=== PATIENT | male | born 1955 | race Two or more races ===

== ENCOUNTER 2016-06-10 16:32 | Inpatient (IN) | payer BC ==
[~2016-06-10] VITALS: Ht 177.8 cm; Wt 127.0 kg
[2016-06-10 16:41] VITALS: BP 158/88
[2016-06-10] MEDS ORDERED: Albuterol ud Inhalation ONE (16:42)
[2016-06-10] MEDS ORDERED: Ipratropium 0.02% Inh Soln 2.5ml UD ONE (16:43)
[2016-06-10] MEDS ORDERED: Solu-MEDROL 125mg Inj IVP ONE (16:45)
[2016-06-10 17:00] VITALS: BP 145/70
[2016-06-10 17:03] LABS: BASOPHILS % (AUTO) 1.4 % (0.0-2.0); EOSINOPHILS % (AUTO) 2.6 % (0.0-3.0); LYMPHOCYTES % (AUTO) 25.4 % (20.0-45.0); MEAN CORPUSCULAR HEMOGLOBIN 30.4 PG (27.0-31.0); MEAN CORPUSCULAR HGB CONC 31.1 G/DL (32.0-36.0); MEAN CORPUSCULAR VOLUME 98 FL (80-99); MEAN PLATELET VOLUME 6.6 FL (6.5-10.1); MONOCYTES % (AUTO) 9.4 % (1.0-10.0); NEUTROPHILS % (AUTO) 61.2 % (45.0-75.0); PLATELET COUNT 279 K/UL (150-450); RED BLOOD COUNT 3.92 M/UL (4.70-6.10); RED CELL DISTRIBUTION WIDTH 15.5 % (11.6-14.8)
[2016-06-10] MEDS: Albuterol ud Inhalation HHN SCH ×3 (17:10→17:21)
[2016-06-10] MEDS: Ipratropium 0.02% Inh Soln 2.5ml UD HHN SCH ×3 (17:10→17:21)
[2016-06-10 17:11] LABS: ALBUMIN/GLOBULIN RATIO 1.1 (1.0-2.7); CREATININE 1.3 mg/dL (0.7-1.2); GLOMERULAR FILTRATION RATE 56.1 mL/min (>60); POTASSIUM 5.1 mEQ/L (3.4-4.9); TOTAL PROTEIN 6.8 g/dL (6.6-8.7)
[2016-06-10 17:15] LABS: REFLEX LACTIC ACID YES OR NO YES
[2016-06-10 17:16] LABS: TROPONIN I < 0.30 ng/mL (<=0.30)
[2016-06-10 17:22] LABS: CKMB 5.7 ng/mL (< 6.7)
[2016-06-10] MEDS ORDERED: TRULICITY1.5 MG/0.5 SQ (17:24)
[2016-06-10] MEDS ORDERED: POTASSIUM 25 M25 ME1 PO (17:24)
[2016-06-10] MEDS ORDERED: INVOKANA300 MG PO (17:24)
[2016-06-10] MEDS ORDERED: LEVOFLOXACIN750 MG ORAL (17:24)
[2016-06-10] MEDS ORDERED: JUNUVIA PO (17:24)
[2016-06-10] MEDS ORDERED: FLOMAX0.4 MG ORAL (17:24)
[2016-06-10] MEDS ORDERED: METFORMIN HCL1000 M3 PO (17:24)
[2016-06-10] MEDS ORDERED: LISINOPRIL20 MG ORAL (17:24)
[2016-06-10] MEDS ORDERED: MIRTAZAPINE15 M1 ORAL (17:24)
[2016-06-10] MEDS ORDERED: ELIQUIS5 MG PO (17:24)
[2016-06-10] MEDS ORDERED: NOVOLIN R100 UNIT/1 SUBQ (17:24)
[2016-06-10] MEDS ORDERED: BYSTOLIC 10MG10 MG ORAL (17:24)
[2016-06-10 17:32] LABS: BILIRUBIN,DIRECT 0.4 mg/dL (0.1-0.3)
[2016-06-10 17:42] LABS: ABG ALLEN TEST POSITIVE; ABG BASE EXCESS 0.2; ABG PCO2 51.7 mmHg (35.0-45.0)
[2016-06-10 18:00] VITALS: BP 150/76
[2016-06-10 18:19] LABS: APPEARANCE,URINE CLOUDY; KETONES,URINE 1+ (NEGATIVE); LEUKOCYTE ESTERASE ,URINE 1+ (NEGATIVE); NITRITE,URINE NEGATIVE (NEGATIVE); PH,URINE 5 (4.5-8.0); PROTEIN,URINE 4+ (NEGATIVE); UROBILINOGEN,URINE 4 MG/DL (0.0-1.0)
[2016-06-10 18:35] LABS: AMORPHOUS SEDIMENT,UR MANY /LPF; BACTERIA,URINE MODERATE /HPF; SQUAMOUS EPITHELIAL CELL,UR OCCASIONAL /LPF (NONE/OCC)
[2016-06-10 18:36] LABS: ICTOTEST NEGATIVE; MUCUS,URINE FEW /LPF (NONE/OCC)
--- NOTE | 2016-06-10 18:37 | Emergency Room Report ---
History of Present Illness General Chief Complaint: Dyspnea/Respdistress Source: EMS Present Illness HPI 60-year-old male presents ED for evaluation of respiratory distress. Per EMS patient had sudden onset of shortness of breath starting today. Per EMS patient had crackles in bilateral lungs, pitting edema in both legs. Hypertensive. Patient was started on CPAP given nitroglycerin. Started on nebs. Upon arrival patient is improved however still remains short of breath. History of COPD and CHF. No reported fevers or chills. No chest pain. No sick contacts or recent travel. No other aggravating or relieving factors. Denies any other associated symptoms Allergies: Coded Allergies: LATEX, NATURAL RUBBER (Verified Allergy, Unknown, 06/10/16) Patient History Past Medical History: DM, HTN, CHF Past Surgical History: none Pertinent Family History: none Social History: Denies: alcohol use, drug use, smoking Immunizations: UTD Reviewed Nursing Documentation: PMH: Agreed, PSxH: Agreed Nursing Documentation-PMH Past Medical History: No History, Except For Hx Cardiac Problems: Yes - CHF Hx Hypertension: Yes Hx Diabetes: Yes Review of Systems All Other Systems: negative except mentioned in HPI Physical Exam Vital Signs Date Time Temp Pulse Resp B/P Pulse Ox O2 Delivery O2 Flow Rate FiO2 06/10/16 16:27 98 16 158/88 99 Bi-pap 15.0 06/10/16 16:40 100 06/10/16 16:41 97.8 Sp02 EP Interpretation: reviewed, normal General Appearance: moderate distress, obese Head: normocephalic Eyes: bilateral eye PERRL, bilateral eye normal inspection ENT: normal ENT inspection Neck: normal inspection Respiratory: accessory muscle use, crackles, wheezing Cardiovascular #1: regular rate, rhythm, no edema Gastrointestinal: normal bowel sounds, non tender, soft, non-distended, no guarding, no rebound Rectal: deferred Genitourinary: no CVA tenderness Musculoskeletal: normal inspection Neurologic: alert, oriented x3, responsive, motor strength/tone normal, sensory intact, speech normal Psychiatric: normal inspection Skin: normal inspection Lymphatic: normal inspection Procedures Critical Care Time Critical Care Time i. I feel this is a highly complex case requiring extensive working including EKG/Rhythm strip, Xray/CT/US, Blood/urine lab work, repeat exams while in ED, and administration of strong opiates/narcotics for pain control, admission to hospital or close patient follow up. Total time: 30 min bedside evaluation and treatment excludes procedures (EKG). Reason for critical care: Respiratory distress, hypoxia Possible complications: hypotension, hypertension, VA, shock, arrhythmias, metabolic acidosis, end organ damage, respiratory failure. Interventions: BiPAP, nebs, EKG, chest x-ray, labs, antibiotics, Lasix Course: Patient here with respiratory distress. History of CHF. Pitting edema and crackles in lungs. Started on BiPAP. Given slight Medrol and nebs. Labs show CHF. Chest x-ray shows significant effusion on the right. abx given. Lasix given Consultations: nursing staff, EMS, family Performed by: Dr Ramirez Tolerated well condition = serious j. because of unstable vital signs this patient had a condition that could potentially threaten life or limb. I feel this is a critical patient who required my full attention while patient was considered critical. Total Critical Care Time excluding procedures was greater than 35 minutes Medical Decision Making Diagnostic Impression: Primary Impression: Respiratory distress Additional Impressions: CHF exacerbation Qualified Codes: I50.9 - Heart failure, unspecified UTI (urinary tract infection) Qualified Codes: N39.0 - Urinary tract infection, site not specified Sepsis Qualified Codes: A41.9 - Sepsis, unspecified organism ER Course Hospital Course 60-year-old male presents ED complaining of shortness of breath, respiratory distress, leg swelling Differential diagnoses include: VA/unstable angina, contusion, muscle strain, PTX, rib fracture Clinical course Patient placed on stretcher. on manager monitoring. After initial history and physical I ordered labs, EKG, chest x-ray, nebs, BIPAP labs reviewed- no leukocytosis, hemoglobin/hematocrit stable, creatinine elevated, troponins negative, BNP elevated, UA grossly positive, lactate 2.6 Chest x-ray- cardiomegaly, signifant pleural effusion Antibiotics given. Lasix given. Spoke to phlebotomy manager Dr. Sandoval; asked that I admit to Dr Palma Case discussed with Dr. Palma and he agreed to accept the patient to his service for further care and support I. I feel this is a highly complex case requiring extensive working including EKG/Rhythm strip, Xray/CT/US, Blood/urine lab work, repeat exams while in ED, and administration of strong opiates/narcotics for pain control, admission to hospital or close patient follow up. Diagnosis - CHF exacerbation, respriatory distress, UTI, sepsis admitted to [facility] in serious condition Labs Test 06/10/16 16:18 06/10/16 17:15 06/10/16 17:31 06/10/16 17:50 White Blood Count 8.0 K/UL (4.8-10.8) Red Blood Count 3.92 M/UL (4.70-6.10) Hemoglobin 11.9 G/DL (14.2-18.0) Hematocrit 38.3 % (42.0-52.0) Mean Corpuscular Volume 98 FL (80-99) Mean Corpuscular Hemoglobin 30.4 PG (27.0-31.0) Mean Corpuscular Hemoglobin Concent 31.1 G/DL (32.0-36.0) Red Cell Distribution Width 15.5 % (11.6-14.8) Platelet Count 279 K/UL (150-450) Mean Platelet Volume 6.6 FL (6.5-10.1) Neutrophils (%) (Auto) 61.2 % (45.0-75.0) Lymphocytes (%) (Auto) 25.4 % (20.0-45.0) Monocytes (%) (Auto) 9.4 % (1.0-10.0) Eosinophils (%) (Auto) 2.6 % (0.0-3.0) Basophils (%) (Auto) 1.4 % (0.0-2.0) Sodium Level 142 mEQ/L (135-145) Potassium Level 5.1 mEQ/L (3.4-4.9) Chloride Level 100 mEQ/L (98-107) Carbon Dioxide Level 25 mEQ/L (20-30) Anion Gap 17 (5-15) Blood Urea Nitrogen 27 mg/dL (7-23) Creatinine 1.3 mg/dL (0.7-1.2) Estimat Glomerular Filtration Rate 56.1 mL/min (>60) Glucose Level 148 mg/dL (74-106) Lactic Acid Level 2.60 mmol/L (0.66-2.22) 2.20 mmol/L (0.66-2.22) Calcium Level 9.0 mg/dL (8.6-10.2) Total Bilirubin 1.1 mg/dL (0.0-1.2) Direct Bilirubin 0.4 mg/dL (0.1-0.3) Aspartate Amino Transf (AST/SGOT) 30 U/L (5-40) Alanine Aminotransferase (ALT/SGPT) 14 U/L (3-41) Alkaline Phosphatase 140 U/L (40-129) Total Creatine Kinase 86 U/L (38-174) Creatine Kinase MB 5.7 ng/mL (< 6.7) Creatine Kinase MB Relative Index 6.6 Troponin I < 0.30 ng/mL (<=0.30) Pro-B-Type Natriuretic Peptide 8949 pg/mL (0-125) Total Protein 6.8 g/dL (6.6-8.7) Albumin 3.7 g/dL (3.5-5.2) Globulin 3.1 g/dL Albumin/Globulin Ratio 1.1 (1.0-2.7) Arterial Blood pH 7.332 (7.350-7.450) Arterial Blood Partial Pressure CO2 51.7 mmHg (35.0-45.0) Arterial Blood Partial Pressure O2 444.1 mmHg (75.0-100.0) Arterial Blood HCO3 26.8 mmol/L (22.0-26.0) Arterial Blood Oxygen Saturation 99.1 % (92.0-98.0) Arterial Blood Base Excess 0.2 Francis Test Positive Urine Color Brown Urine Appearance Cloudy Urine pH 5 (4.5-8.0) Urine Specific [place] 1.025 (1.005-1.035) Urine Protein 4+ (NEGATIVE) Urine Glucose (UA) Negative (NEGATIVE) Urine Ketones 1+ (NEGATIVE) Urine Occult Blood 2+ (NEGATIVE) Urine Nitrite Negative (NEGATIVE) Urine Bilirubin 1+ (NEGATIVE) Urine Ictotest Negative Urine Urobilinogen 4 MG/DL (0.0-1.0) Urine Leukocyte Esterase 1+ (NEGATIVE) Urine RBC 2-4 /HPF (0 - 0) Urine WBC 5-10 /HPF (0 - 0) Urine Squamous Epithelial Cells Occasional /LPF Urine Amorphous Sediment Many /LPF (NONE) Urine Bacteria Moderate /HPF (NONE) Urine Mucus Few /LPF (NONE/OCC) EKG Diagnostic Results Rate: normal Rhythm: NSR ST Segments: no acute changes ASA given to the pt in ED: No Rhythm Strip Diag. Results EP Interpretation: yes Rhythm: NSR, no PVC's, no ectopy Chest X-Ray Diagnostic Results EP Interpretation: Yes Findings: no pneumothorax, no acute cardiopulmonary disease, other - cardiomegaly. significant R sided effusion Number of Views: 1 Last Vital Signs Date Time Temp Pulse Resp B/P Pulse Ox O2 Delivery O2 Flow Rate FiO2 06/10/16 18:00 87 20 150/76 97 Bi-pap 30 06/10/16 16:41 15.0 06/10/16 16:41 97.8 Status: improved Disposition: ADMITTED INPATIENT Condition: Serious Referrals: NOT CHOSEN MAICOL/,REFERRING (PCP) SURY RAMIREZ M.D. Jun 10, 2016 18:37
[2016-06-10 19:00] VITALS: BP 111/87
[2016-06-10 20:00] VITALS: BP_SYST 115; BP_SYST 136; BP_DIAS 63; BP_DIAS 81
[2016-06-10] MEDS ORDERED: Miralax 17gm pkt ORAL PRN (20:45)
[2016-06-10] MEDS ORDERED: DuoNeb 0.5-3(2.5)mg/3ml neb HHN PRN (20:45)
[2016-06-10] MEDS ORDERED: Heparin 5000 units/ml inj SUBQ SCH (21:00)
[2016-06-10] MEDS: NovoLOG Insulin Flexpen SUBQ SCH (21:50)
[2016-06-10 23:52] LABS: TROPONIN I < 0.30 ng/mL (<=0.30)
[2016-06-11] VITALS: BP 136/79
[2016-06-11 04:00] VITALS: BP 128/72
[2016-06-11 05:49] LABS: MEAN CORPUSCULAR HEMOGLOBIN 30.5 PG (27.0-31.0); MEAN CORPUSCULAR HGB CONC 30.7 G/DL (32.0-36.0); MEAN CORPUSCULAR VOLUME 99 FL (80-99); MEAN PLATELET VOLUME 6.2 FL (6.5-10.1); PLATELET COUNT 211 K/UL (150-450); RED BLOOD COUNT 3.75 M/UL (4.70-6.10); RED CELL DISTRIBUTION WIDTH 14.8 % (11.6-14.8); WHITE BLOOD COUNT 13.2 K/UL (4.8-10.8)
[2016-06-11 06:09] LABS: ANION GAP 17 (5-15); CALCIUM 8.7 mg/dL (8.6-10.2); CARBON DIOXIDE 23 mEQ/L (20-30); CHLORIDE 105 mEQ/L (98-107); CREATININE 1.2 mg/dL (0.7-1.2); GLOMERULAR FILTRATION RATE > 60 mL/min (>60); HEMOLYSIS 12; PHOSPHORUS 4.2 mg/dL (2.5-4.8); POTASSIUM 4.8 mEQ/L (3.4-4.9); SODIUM 145 mEQ/L (135-145)
[2016-06-11] MEDS: NovoLOG Insulin Flexpen SUBQ SCH ×4 (06:19→20:54)
[2016-06-11 07:20] LABS: TROPONIN I < 0.30 ng/mL (<=0.30)
[2016-06-11 08:00] VITALS: BP 125/72
[2016-06-11] MEDS: Eliquis 2.5mg tablet ORAL SCH ×2 (09:24→18:00)
[2016-06-11] MEDS: Tamsulosin 0.4mg cap ORAL SCH (09:31)
--- NOTE | 2016-06-11 10:08 | Diagnostic Imaging Report ---
Indication: Chest Pain Comparison: None A single view chest radiograph was obtained. Findings: Exam limited by body habitus. There is a moderate to large right pleural effusion suspected. Cardiomegaly and pulmonary vascular prominence demonstrated bilaterally. The bones appear osteopenic. Impression: Suspected right pleural effusion and CHF
[2016-06-11] MEDS ORDERED: DuoNeb 0.5-3(2.5)mg/3ml neb HHN PRN (11:45)
[2016-06-11 12:00] VITALS: BP 114/67
--- NOTE | 2016-06-11 12:01 | Consultation ---
History of Present Illness General Date patient seen: Jun 11, 2016 Chief Complaint: Dyspnea/Respdistress Referring physician: Dr. Palma Reason for Consultation: respiratory failure Present Illness HPI 60-year-old male with extensive PMHx of COPD, CHF, JAZMIN, morbid obesity, presents to ED for evaluation of respiratory distress. Patient had sudden onset of shortness of breath starting. Per EMS patient had crackles in bilateral lungs, pitting edema in both legs. Patient was started on CPAP given nitroglycerin. Upon arrival to ER patient remained short of breath. He was started on BIPAp and received diuretics and transferred to [facility]. Currently he looks more comfortable and slight shallow breathing. Allergies: Coded Allergies: LATEX, NATURAL RUBBER (Verified Allergy, Unknown, 06/10/16) Medication History Scheduled Apixaban (Eliquis), 5 MG PO Q12HR, (Reported) Bysto (Bystolic), 10 MG ORAL DAILY, (Reported) Canagliflozin (Invokana), 300 MG PO DAILY, (Reported) Dulaglutide (Trulicity), 1.5 MG SQ q week, (Reported) Insulin Regular, Human* (Novolin R*), 0 SUBQ .SLIDING SCALE, (Reported) Levofloxacin* (Levofloxacin*), 500 MG ORAL DAILY, (Reported) Lisinopril (Lisinopril*), 40 MG ORAL DAILY, (Reported) Metformin HCl (Metformin HCl ER), 1,000 MG PO DAILY, (Reported) Mirtazapine (Mirtazapine), 15 MG ORAL BEDTIME, (Reported) Potassium Bicarbonate/Cit Ac (Potassium 25 Meq Tablet Eff), 20 MEQ PO DAILY, ( Reported) Tamsulosin HCl (Flomax), 0.4 MG ORAL DAILY, (Reported) [junuvia ], 100 TAB PO DAILY, (Reported) Patient History Healthcare decision maker Resuscitation status Full Code Advanced Directive on File Past Medical/Surgical History Past Medical/Surgical History: (1) Cardiomyopathy (2) Morbid obesity (3) COPD (chronic obstructive pulmonary disease) Review of Systems Constitutional: Reports: malaise Eye: Reports: no symptoms Respiratory: Reports: RIVERA, shortness of breath, wheezing Cardiovascular: Reports: no symptoms Gastrointestinal: Reports: no symptoms Physical Exam General Appearance: obese Lines, tubes and drains: peripheral, central line HEENT: normocephalic, atraumatic Neck: non-tender, normal alignment Respiratory/Chest: chest wall non-tender, lungs clear Cardiovascular/Chest: normal peripheral pulses, normal rate Abdomen: normal bowel sounds, non tender Genitourinary/Rectal: normal genital exam Extremities: normal range of motion Last 24 Hour Vital Signs Date Time Temp Pulse Resp B/P Pulse Ox O2 Delivery O2 Flow Rate FiO2 06/11/16 09:50 98 Nasal Cannula 4.0 06/11/16 09:30 Nasal Cannula 4.0 06/11/16 08:58 75 20 98 Facial 30 06/11/16 08:00 78 06/11/16 08:00 96.1 79 14 125/72 100 Bi-pap 30 06/11/16 08:00 30 06/11/16 07:28 73 20 98 Facial 30 06/11/16 05:07 76 22 98 Facial 30 06/11/16 04:00 97.1 75 15 128/72 97 Bi-pap 30 06/11/16 04:00 30 06/11/16 03:57 78 06/11/16 03:12 83 15 97 Facial 30 06/11/16 01:30 85 15 98 Facial 30 06/11/16 00:00 30 06/11/16 00:00 97.4 79 15 136/79 89 Bi-pap 30 06/10/16 23:58 84 06/10/16 23:39 81 18 98 Facial 30 06/10/16 20:51 82 18 98 Facial 30 06/10/16 20:00 30 06/10/16 20:00 84 06/10/16 20:00 96.8 84 15 136/81 87 Room Air 2.0 06/10/16 19:56 84 06/10/16 19:14 97.8 88 19 111/87 98 15.0 30 06/10/16 19:11 84 19 98 Facial 30 06/10/16 19:00 88 16 111/87 99 Bi-pap 30 06/10/16 18:00 87 20 150/76 97 Bi-pap 30 06/10/16 17:50 30 06/10/16 17:00 66 27 Bi-pap 100 06/10/16 17:00 88 20 145/70 100 Bi-pap 100 06/10/16 16:56 66 27 99 Bi-pap 100 06/10/16 16:55 66 27 99 Bi-pap 100 06/10/16 16:51 66 27 99 Facial 100 06/10/16 16:41 58 16 Bi-pap 15.0 06/10/16 16:41 97.8 58 16 158/88 99 Bi-pap 15.0 06/10/16 16:40 100 06/10/16 16:27 98 16 158/88 99 Bi-pap 15.0 Intake and Output 06/10/16 06/11/16 18:59 06:59 Intake Total 1700 ml Output Total 3150 ml Balance -1450 ml Intake Oral 100 ml IV Total 1600 ml Output Urine Total 3150 ml # Voids 1 Laboratory Tests Test 06/10/16 16:18 06/10/16 17:15 06/10/16 17:31 06/10/16 17:50 White Blood Count 8.0 K/UL (4.8-10.8) Red Blood Count 3.92 M/UL (4.70-6.10) L Hemoglobin 11.9 G/DL (14.2-18.0) L Hematocrit 38.3 % (42.0-52.0) L Mean Corpuscular Volume 98 FL (80-99) Mean Corpuscular Hemoglobin 30.4 PG (27.0-31.0) Mean Corpuscular Hemoglobin Concent 31.1 G/DL (32.0-36.0) L Red Cell Distribution Width 15.5 % (11.6-14.8) H Platelet Count 279 K/UL (150-450) Mean Platelet Volume 6.6 FL (6.5-10.1) Neutrophils (%) (Auto) 61.2 % (45.0-75.0) Lymphocytes (%) (Auto) 25.4 % (20.0-45.0) Monocytes (%) (Auto) 9.4 % (1.0-10.0) Eosinophils (%) (Auto) 2.6 % (0.0-3.0) Basophils (%) (Auto) 1.4 % (0.0-2.0) Sodium Level 142 mEQ/L (135-145) Potassium Level 5.1 mEQ/L (3.4-4.9) H Chloride Level 100 mEQ/L (98-107) Carbon Dioxide Level 25 mEQ/L (20-30) Anion Gap 17 (5-15) H Blood Urea Nitrogen 27 mg/dL (7-23) H Creatinine 1.3 mg/dL (0.7-1.2) H Estimat Glomerular Filtration Rate 56.1 mL/min (>60) Glucose Level 148 mg/dL (74-106) H Lactic Acid Level 2.60 mmol/L (0.66-2.22) H 2.20 mmol/L (0.66-2.22) Calcium Level 9.0 mg/dL (8.6-10.2) Total Bilirubin 1.1 mg/dL (0.0-1.2) Direct Bilirubin 0.4 mg/dL (0.1-0.3) H Aspartate Amino Transf (AST/SGOT) 30 U/L (5-40) Alanine Aminotransferase (ALT/SGPT) 14 U/L (3-41) Alkaline Phosphatase 140 U/L (40-129) H Total Creatine Kinase 86 U/L (38-174) Creatine Kinase MB 5.7 ng/mL (< 6.7) Creatine Kinase MB Relative Index 6.6 Troponin I < 0.30 ng/mL (<=0.30) Pro-B-Type Natriuretic Peptide 8949 pg/mL (0-125) H Total Protein 6.8 g/dL (6.6-8.7) Albumin 3.7 g/dL (3.5-5.2) Globulin 3.1 g/dL Albumin/Globulin Ratio 1.1 (1.0-2.7) Arterial Blood pH 7.332 (7.350-7.450) Arterial Blood Partial Pressure CO2 51.7 mmHg (35.0-45.0) H Arterial Blood Partial Pressure O2 444.1 mmHg (75.0-100.0) H Arterial Blood HCO3 26.8 mmol/L (22.0-26.0) H Arterial Blood Oxygen Saturation 99.1 % (92.0-98.0) H Arterial Blood Base Excess 0.2 Francis Test Positive Urine Color Brown Urine Appearance Cloudy Urine pH 5 (4.5-8.0) Urine Specific [place] 1.025 (1.005-1.035) Urine Protein 4+ (NEGATIVE) H Urine Glucose (UA) Negative (NEGATIVE) Urine Ketones 1+ (NEGATIVE) H Urine Occult Blood 2+ (NEGATIVE) H Urine Nitrite Negative (NEGATIVE) Urine Bilirubin 1+ (NEGATIVE) H Urine Ictotest Negative Urine Urobilinogen 4 MG/DL (0.0-1.0) H Urine Leukocyte Esterase 1+ (NEGATIVE) H Urine RBC 2-4 /HPF (0 - 0) H Urine WBC 5-10 /HPF (0 - 0) H Urine Squamous Epithelial Cells Occasional /LPF Urine Amorphous Sediment Many /LPF (NONE) H Urine Bacteria Moderate /HPF (NONE) H Urine Mucus Few /LPF (NONE/OCC) H Test 06/10/16 23:20 06/11/16 03:40 Lactic Acid Level 1.90 mmol/L (0.66-2.22) Troponin I < 0.30 ng/mL (<=0.30) < 0.30 ng/mL (<=0.30) White Blood Count 13.2 K/UL (4.8-10.8) #H Red Blood Count 3.75 M/UL (4.70-6.10) L Hemoglobin 11.5 G/DL (14.2-18.0) L Hematocrit 37.2 % (42.0-52.0) L Mean Corpuscular Volume 99 FL (80-99) Mean Corpuscular Hemoglobin 30.5 PG (27.0-31.0) Mean Corpuscular Hemoglobin Concent 30.7 G/DL (32.0-36.0) L Red Cell Distribution Width 14.8 % (11.6-14.8) Platelet Count 211 K/UL (150-450) Mean Platelet Volume 6.2 FL (6.5-10.1) L Neutrophils (%) (Auto) % (45.0-75.0) Lymphocytes (%) (Auto) % (20.0-45.0) Monocytes (%) (Auto) % (1.0-10.0) Eosinophils (%) (Auto) % (0.0-3.0) Basophils (%) (Auto) % (0.0-2.0) Sodium Level 145 mEQ/L (135-145) Potassium Level 4.8 mEQ/L (3.4-4.9) Chloride Level 105 mEQ/L (98-107) Carbon Dioxide Level 23 mEQ/L (20-30) Anion Gap 17 (5-15) H Blood Urea Nitrogen 24 mg/dL (7-23) H Creatinine 1.2 mg/dL (0.7-1.2) Estimat Glomerular Filtration Rate > 60 mL/min (>60) Glucose Level 165 mg/dL (74-106) H Calcium Level 8.7 mg/dL (8.6-10.2) Phosphorus Level 4.2 mg/dL (2.5-4.8) Albumin 3.2 g/dL (3.5-5.2) L Microbiology Date/Time Source Procedure Growth Status 06/10/16 17:50 Urine,Clean Catch Urine Culture - Preliminary NO GROWTH Resulted Height (Feet): 5 Height (Inches): 10.00 Weight (Pounds): 280 Medications Current Medications Medications (Trade) Dose Ordered Sig/Alec Route PRN Reason Start Time Stop Time Status Last Admin Dose Admin Acetaminophen (Tylenol) 650 mg Q4H PRN ORAL Fever 06/10/16 20:45 07/10/16 20:44 06/10/16 21:51 Albuterol/ Ipratropium (DuoNeb 0.5-3(2.5)mg/3ml) 3 ml EVERY 4 HOURS PRN HHN Shortness of Breath 06/10/16 20:45 06/15/16 20:44 Apixaban (Eliquis) 5 mg BID ORAL 06/11/16 09:00 07/11/16 08:59 06/11/16 09:24 Dextrose (Dextrose 50%) STAT PRN IV Hypoglycemia 06/10/16 20:45 07/10/16 20:44 Dextrose (Dextrose 50%) STAT PRN IV Hypoglycemia 06/10/16 20:45 07/10/16 20:44 Furosemide (Lasix) 40 mg EVERY 8 HOURS IV 06/10/16 22:00 07/10/16 21:59 06/11/16 06:19 Insulin Aspart (NovoLOG) BEFORE MEALS AND HS SUBQ 06/10/16 21:00 07/10/16 20:59 06/11/16 06:19 Nebivolol (Bystolic) 10 mg DAILY ORAL 06/11/16 09:00 07/11/16 08:59 06/11/16 09:31 Ondansetron HCl (Zofran) 4 mg Q6H PRN IVP Nausea & Vomiting 06/10/16 20:45 07/10/16 20:44 Polyethylene Glycol (Miralax) 17 gm DAILYPRN PRN ORAL Constipation 06/10/16 20:45 07/10/16 20:44 Tamsulosin HCl (Flomax) 0.4 mg DAILY ORAL 06/11/16 09:00 07/11/16 08:59 06/11/16 09:31 Temazepam (Restoril) 15 mg HSPRN PRN ORAL Insomnia 06/10/16 20:45 06/17/16 20:44 Assessment/Plan Problem List: (1) Respiratory distress ICD Codes: R06.00 - Dyspnea, unspecified SNOMED: 783909464 (2) CHF exacerbation ICD Codes: I50.9 - Heart failure, unspecified SNOMED: 39827662 Qualifiers: Qualified Codes: I50.9 - Heart failure, unspecified (3) COPD (chronic obstructive pulmonary disease) ICD Codes: J44.9 - Chronic obstructive pulmonary disease, unspecified SNOMED: 39928880 Qualifiers: (4) Morbid obesity ICD Codes: E66.01 - Morbid (severe) obesity due to excess calories SNOMED: 807947238, [id number] (5) Cardiomyopathy ICD Codes: I42.9 - Cardiomyopathy, unspecified SNOMED: 25216230 Assessment/Plan respiratory treatment IV lasix f/u cxr in am if no improvement in effusion pt might need thoracentesis doppler was negative titrate fio2 to sat of 92% BIPAP at night. QUYNH BEAR Jun 11, 2016 12:01
--- NOTE | 2016-06-11 12:13 | History & Physical ---
History and Physical History & Physicial Dictated for Int Med-Dr Palma no. [id number]. ALLAN MORSE Jun 11, 2016 12:13
[2016-06-11 16:00] VITALS: BP 120/72
--- NOTE | 2016-06-11 18:15 | Cardiology Report ---
APPROVED REPORT EXAM: Two-dimensional and M-mode echocardiogram with Doppler and color Doppler. INDICATION Left Ventricular function M-Mode DIMENSIONS IVSd1.0 (0.7-1.1cm)Left Atrium (MM)5.0 (1.6-4.0cm) LVDd5.0 (3.5-5.6cm)Aortic Root2.6 (2.0-3.7cm) PWd1.0 (0.7-1.1cm)Aortic Cusp Exc.1.9 (1.5-2.0cm) LVDs4.0 (2.5-4.0cm) PWs1.1 cm Technically difficult study due to poor acoustic windows. Study quality precludes accurate assessment of regional wall motion. Mild left ventricular dilatation. Mid to apical lateral wall and septal wall hypokinesia with left ventricular ejection fraction estimated to be 35-40%. No evidence of ventricular hypertrophy. Anterior Echo-free space, may be due to pericardial fat or effusion. No evidence of pericardial effusion. Mild left atrial enlargement. Right cardiac chamber sizes are within normal limits. Mild focal aortic valve sclerosis with adequate cusp excursion. Mildly thickened mitral valve leaflets with normal excursion. Mild mitral annulus and aortic root calcification. Pulmonic valve not well visualized. Normal tricuspid valve structure. IVC dilated at 1.7cm with physiologic collapse. A color flow and spectral Doppler study was performed and revealed: Trace aortic regurgitation. Trace mitral regurgitation. Mitral diastolic velocities suggest reduced left ventricular relaxation (Grade I). Mild tricuspid regurgitation. Tricuspid systolic velocities suggests peak right ventricular systolic pressure of 53 mmHg, consistent with moderate pulmonary hypertension. Trace pulmonic regurgitation present.
--- NOTE | 2016-06-11 18:20 | Cardiac Electrophysiology PN ---
Subjective Subjective [id number]. CHF EF 35%. Lasix drip and Bystolic. On Apixapan but no fib on tele. Add lisinopril and aldactone. Objective Last 24 Hour Vital Signs Date Time Temp Pulse Resp B/P Pulse Ox O2 Delivery O2 Flow Rate FiO2 06/11/16 12:00 63 06/11/16 12:00 96.1 64 16 114/67 100 Nasal Cannula 4.0 06/11/16 09:50 98 Nasal Cannula 4.0 06/11/16 09:30 Nasal Cannula 4.0 06/11/16 08:58 75 20 98 Facial 30 06/11/16 08:00 78 06/11/16 08:00 96.1 79 14 125/72 100 Bi-pap 30 06/11/16 08:00 30 06/11/16 07:28 73 20 98 Facial 30 06/11/16 05:07 76 22 98 Facial 30 06/11/16 04:00 97.1 75 15 128/72 97 Bi-pap 30 06/11/16 04:00 30 06/11/16 03:57 78 06/11/16 03:12 83 15 97 Facial 30 06/11/16 01:30 85 15 98 Facial 30 06/11/16 00:00 30 06/11/16 00:00 97.4 79 15 136/79 89 Bi-pap 30 06/10/16 23:58 84 06/10/16 23:39 81 18 98 Facial 30 06/10/16 20:51 82 18 98 Facial 30 06/10/16 20:00 30 06/10/16 20:00 84 06/10/16 20:00 96.8 84 15 136/81 87 Room Air 2.0 06/10/16 19:56 84 06/10/16 19:14 97.8 88 19 111/87 98 15.0 30 06/10/16 19:11 84 19 98 Facial 30 06/10/16 19:00 88 16 111/87 99 Bi-pap 30 Intake and Output 06/10/16 06/11/16 19:00 07:00 Intake Total 1900 ml Output Total 3150 ml Balance -1250 ml Intake Oral 100 ml IV Total 1800 ml Output Urine Total 3150 ml # Voids 1 Laboratory Tests Test 06/10/16 23:20 06/11/16 03:40 Lactic Acid Level 1.90 mmol/L (0.66-2.22) Troponin I < 0.30 ng/mL (<=0.30) < 0.30 ng/mL (<=0.30) White Blood Count 13.2 K/UL (4.8-10.8) #H Red Blood Count 3.75 M/UL (4.70-6.10) L Hemoglobin 11.5 G/DL (14.2-18.0) L Hematocrit 37.2 % (42.0-52.0) L Mean Corpuscular Volume 99 FL (80-99) Mean Corpuscular Hemoglobin 30.5 PG (27.0-31.0) Mean Corpuscular Hemoglobin Concent 30.7 G/DL (32.0-36.0) L Red Cell Distribution Width 14.8 % (11.6-14.8) Platelet Count 211 K/UL (150-450) Mean Platelet Volume 6.2 FL (6.5-10.1) L Neutrophils (%) (Auto) % (45.0-75.0) Lymphocytes (%) (Auto) % (20.0-45.0) Monocytes (%) (Auto) % (1.0-10.0) Eosinophils (%) (Auto) % (0.0-3.0) Basophils (%) (Auto) % (0.0-2.0) Sodium Level 145 mEQ/L (135-145) Potassium Level 4.8 mEQ/L (3.4-4.9) Chloride Level 105 mEQ/L (98-107) Carbon Dioxide Level 23 mEQ/L (20-30) Anion Gap 17 (5-15) H Blood Urea Nitrogen 24 mg/dL (7-23) H Creatinine 1.2 mg/dL (0.7-1.2) Estimat Glomerular Filtration Rate > 60 mL/min (>60) Glucose Level 165 mg/dL (74-106) H Calcium Level 8.7 mg/dL (8.6-10.2) Phosphorus Level 4.2 mg/dL (2.5-4.8) Albumin 3.2 g/dL (3.5-5.2) L Microbiology Date/Time Source Procedure Growth Status 06/10/16 17:50 Urine,Clean Catch Urine Culture - Preliminary NO GROWTH Resulted MICHELLE ROWE Jun 11, 2016 18:20
--- NOTE | 2016-06-11 18:56 | Cardiology Report ---
APPROVED REPORT EKG Measurement Heart [id number] Suspect arm lead reversal, interpretation assumes no reversal Normal sinus rhythm with 1st degree AV block Low voltage QRS Possible Anterolateral infarct, age undetermined Abnormal ECG
[2016-06-11 20:09] VITALS: BP 96/74
--- NOTE | 2016-06-11 20:47 | History and Physical Report ---
DATE OF ADMISSION: 06/10/2016 CHIEF COMPLAINT: The patient is a 60-year-old white male with a history of chronic obstructive pulmonary disease and congestive heart failure, presents with chief complaint of wheezing and shortness of breath. HISTORY OF PRESENT ILLNESS: The patient became acutely short of breath on 06/10/2016. The patient denies flu symptoms or fever. The patient presented to [facility]. The patient was found to be in respiratory distress, requiring CPAP. The patient received Lasix in the emergency room. The patient is admitted for shortness of breath and acute on chronic exacerbation. A chest x-ray revealed cardiomegaly with pulmonary vascular prominence. The patient was admitted for acute exacerbation of congestive heart failure. REVIEW OF SYSTEMS: Constitutional: The patient denies weight loss or weight gain. The patient denies fevers or chills. HEENT: The patient denies ear or throat pain. The patient denies headache. Cardiovascular: The patient denies palpitations or chest pain. Chest: The patient complains of wheezes and shortness of breath as above. Abdominal: The patient denies nausea, vomiting, diarrhea, or constipation. Genitourinary: The patient denies dysuria or increased frequency of urination. Neuromuscular: The patient complains of bilateral leg swelling. The patient denies seizures or generalized weakness. PAST MEDICAL HISTORY: Significant for: 1. Coronary disease, status post myocardial infarction and seven stents placement. 2. Diabetes, type 2. 3. Cerebrovascular accident x2. 4. Right hemiplegia. 5. Congestive heart failure. 6. Peripheral vascular disease. PAST SURGICAL HISTORY: Significant for: 1. Coronary stent x7 as above. 2. Right leg stent. 3. Amputation of the right great toe. CURRENT MEDICATIONS: 1. Eliquis 5 mg one tablet p.o. twice daily. 2. Bystolic 10 mg one tablet p.o. daily. 3. Invokana 300 mg one tablet p.o. daily. 4. Trulicity 1.5 mg subcutaneously q. weekly. 5. Novolin sliding scale. 6. Lisinopril 40 mg one tablet p.o. daily. 7. Metformin 1000 mg one tablet p.o. daily. 8. Mirtazapine 15 mg one tablet p.o. at bedtime. 9. Potassium chloride 20 mEq one tablet p.o. daily. 10. Flomax 0.4 mg one tablet p.o. daily. 11. Januvia 100 mg one tablet p.o. daily. ALLERGIES: To latex. SOCIAL HISTORY: The patient is to his partner of many years. The patient's partner is present at the bedside. The patient denies tobacco use, having quit 20 years ago. The patient denies alcohol use or illicit drug use. PHYSICAL EXAMINATION: VITAL SIGNS: Temperature 96.1, respirations 14 to 20, pulse 75 to 79, and blood pressure 125/72. GENERAL: The patient is a well-nourished and well-nourished obese white male, in no apparent distress. HEENT: Eyes, pupils are equal and responsive to light and accommodation. Extraocular movements are intact. NECK: Supple without lymphadenopathy. CHEST: Lungs with scattered wheezes to the bilateral lung gallardo. There are decreased lung sounds at the bilateral bases. There are crackles one third of the way up on the side, otherwise without wheezes or rales. CARDIOVASCULAR: Regular rhythm and rate. S1 and S2 normal without murmurs, rubs, or gallops. ABDOMEN: Soft, nontender, and nondistended. Positive bowel sounds. No hepatosplenomegaly. Currently, no rebound or guarding noted. EXTREMITIES: Negative for clubbing, cyanosis, or edema. RECTAL: Refused. GENITAL: Refused. NEUROLOGICAL: The patient does have right hemiplegia. LABORATORY AND DIAGNOSTIC DATA: Laboratory studies, WBC 8.0, hemoglobin 11.9, hematocrit 38.3, and platelets 239,000. Sodium 142, potassium 5.1, chloride 100, CO2 25, BUN 27, creatinine 1.3, and glucose 148. BNP elevated 8949. Troponin is less than 0.3. Chest x-ray revealed prominent pulmonary vasculature consistent with congestive heart failure and a right pleural effusion. ASSESSMENT: This is a 60-year-old white male with: 1. Shortness of breath. 2. Edema, bilateral lower extremities. 3. Congestive heart failure. 4. Chronic obstructive pulmonary disease. 5. Coronary artery disease. 6. Diabetes, type 2. 7. Cerebrovascular disease. 8. Right hemiplegia. 9. Cardiomegaly. 10. Peripheral vascular disease. 11. Obesity. TREATMENT: 1. Shortness of breath/edema. A Cardiology consultation was obtained with Dr. Gabriel Bryant. The patient is currently tolerating nasal cannula. The patient has received intravenous Lasix. We will follow recommendations of Cardiology. An echocardiogram is pending. 2. Chronic obstructive pulmonary disease. The patient has been placed empirically on DuoNeb every four hours as needed. A Pulmonary consultation was obtained with Dr. Brooklynn Evans. 3. Coronary artery disease as above. A Cardiology consultation was obtained with Dr. Gabriel Bryant. 4. Diabetes, type 2. The patient has been started on regular insulin sliding scale. 5. Cerebrovascular disease. 6. Right hemiplegia. 7. Cardiomegaly. An echocardiogram is pending as above. 8. Peripheral vascular disease. The patient is status post stent in the right leg. Eze Rodriguez M.D. DR: CUCO JOB#: [id number] CC:
[2016-06-12] VITALS: BP 110/70
--- NOTE | 2016-06-12 02:07 | Consultation ---
DATE OF CONSULTATION: 06/11/2016 CARDIOLOGY CONSULTATION CONSULTING PHYSICIAN: Gabriel Bryant M.D. REFERRING PHYSICIAN: Taiwo Palma M.D. REASON FOR CONSULTATION: Management of hypertension and congestive heart failure. HISTORY OF PRESENT ILLNESS: The patient is a 60-year-old gentleman with history of hypertension, diabetes, and history of congestive heart failure, who was brought to the emergency room as the patient suddenly felt short of breath. The patient had crackles in bilateral lungs as well as bilateral pitting edema and was hypertensive. The patient received Cipro and nitroglycerin and in emergency room, the patient was still short of breath. The patient also has a history of chronic obstructive pulmonary disease. He underwent an echocardiogram, which showed an ejection fraction of only 35%, but no evidence of pericardial effusion and PA pressure of 53. His EKG showed sinus rhythm in 80s and first-degree AV block, low voltage. PAST MEDICAL HISTORY: 1. Hypertension. 2. Diabetes. 3. Congestive heart failure. 4. History of chronic obstructive pulmonary disease. SOCIAL HISTORY: He lives at home. He does not smoke or drink alcohol. FAMILY HISTORY: Noncontributory. REVIEW OF SYSTEM: His review of systems was thoroughly performed and was negative other than what was mentioned in the history. PHYSICAL EXAMINATION: VITAL SIGNS: Blood pressure is 114/67, pulse 60, respirations , and temperature 96.1 degrees. HEENT: Head and neck shows mild jugular venous distention. LUNGS: Decreased breath sounds. CARDIOVASCULAR: Showed distant heart sounds with no gallop or rub. ABDOMEN: Morbidly obese. EXTREMITIES: There is 3+ pitting edema. LABORATORY DATA: Labs show white count of 13.2, hemoglobin of 11.5, hematocrit of 37.2, and a platelet count of 211,000. Sodium 145, potassium is 4.8, BUN of 24, and creatinine 1.2. His troponin negative x2. ASSESSMENT AND PLAN: 1. Congestive heart failure. The patient was ruled out for myocardial infarction. Echocardiogram showed ejection of only 35%. His creatinine is within normal range. I will put him on Lasix 40 mg IV b.i.d. or on Cardizem until he feels better. In the meantime, he is also on Bystolic and add lisinopril and Aldactone to his medical regimen. 2. Chronic obstructive pulmonary disease. The patient cannot tolerate Coreg, continue Bystolic, which is a very better selective. 3. Questionable atrial fibrillation. The patient is on Eliquis 5 mg b.i.d. Currently, remains in sinus rhythm. We have to check the records to make sure if the patient does have any pulmonary embolus or DVT. 4. Diabetes, on metformin. 5. Morbid obesity. Thank very much, Dr. Palma, for allowing me to participate in the care of this patient. Please do not hesitate to contact me for any questions regarding my evaluation. Gabriel Bryant M.D. DR: SHAWNA JOB#: [id number] CC:
[2016-06-12 04:00] VITALS: BP 145/67
[2016-06-12] MEDS: NovoLOG Insulin Flexpen SUBQ SCH ×4 (06:22→20:58)
[2016-06-12 08:00] VITALS: BP 112/64
[2016-06-12] MEDS: Spironolactone 25mg tab ORAL SCH (09:20)
[2016-06-12] MEDS: Eliquis 2.5mg tablet ORAL SCH ×2 (09:20→18:16)
[2016-06-12] MEDS: Lisinopril 10mg tab ORAL SCH (09:20)
[2016-06-12] MEDS: Tamsulosin 0.4mg cap ORAL SCH (09:20)
[2016-06-12 09:47] LABS: BASOPHILS % (AUTO) 0.8 % (0.0-2.0); EOSINOPHILS % (AUTO) 1.4 % (0.0-3.0); LYMPHOCYTES % (AUTO) 18.6 % (20.0-45.0); MEAN CORPUSCULAR HGB CONC 30.7 G/DL (32.0-36.0); MEAN CORPUSCULAR VOLUME 98 FL (80-99); MEAN PLATELET VOLUME 5.9 FL (6.5-10.1); MONOCYTES % (AUTO) 9.9 % (1.0-10.0); NEUTROPHILS % (AUTO) 69.4 % (45.0-75.0); PLATELET COUNT 217 K/UL (150-450); RED BLOOD COUNT 3.71 M/UL (4.70-6.10); RED CELL DISTRIBUTION WIDTH 15.5 % (11.6-14.8); WHITE BLOOD COUNT 8.3 K/UL (4.8-10.8)
[2016-06-12 10:07] LABS: CALCIUM 8.9 mg/dL (8.6-10.2); CREATININE 1.4 mg/dL (0.7-1.2); GLOMERULAR FILTRATION RATE 51.5 mL/min (>60); POTASSIUM 4.4 mEQ/L (3.4-4.9); TOTAL PROTEIN 6.3 g/dL (6.6-8.7)
[2016-06-12 12:00] VITALS: BP 106/58
--- NOTE | 2016-06-12 14:33 | Diagnostic Imaging Report ---
Indication: Shortness of breath Technique: One view of the chest Comparison: 06/11/2016 Findings: Body habitus limits evaluation. Patient is rotated to the right. Large right pleural effusion is again demonstrated. Interstitial congestive changes are again demonstrated. Allowing for technical differences, findings are probably overall unchanged The heart remains borderline enlarged Impression: Unchanged, over one day, findings as above.
--- NOTE | 2016-06-12 14:57 | Pulmonology Progress Note ---
Assessment/Plan Problems: (1) Respiratory distress (2) CHF exacerbation (3) COPD (chronic obstructive pulmonary disease) (4) Morbid obesity (5) Cardiomyopathy Assessment/Plan still on lasix drip check electrolytes f/u on cxr daily will need thoracentesis, considering the size of the effusion Subjective ROS Limited/Unobtainable: No Interval Events: still short of breath, no new complains Constitutional: Reports: no symptoms HEENT: Repors: no symptoms Cardiovascular: Reports: no symptoms Gastrointestinal/Abdominal: Reports: no symptoms Allergies: Coded Allergies: LATEX, NATURAL RUBBER (Verified Allergy, Unknown, 06/10/16) Objective Last 24 Hour Vital Signs Date Time Temp Pulse Resp B/P Pulse Ox O2 Delivery O2 Flow Rate FiO2 06/12/16 12:00 62 06/12/16 12:00 96.8 58 16 106/58 99 Nasal Cannula 3.0 06/12/16 09:20 112/64 06/12/16 08:37 63 16 96 Facial 30 06/12/16 08:00 97.0 64 14 112/64 97 Bi-pap 30 06/12/16 08:00 66 06/12/16 07:05 62 17 96 Facial 30 06/12/16 07:05 Bi-pap 30 06/12/16 07:05 96 Bi-pap 30 06/12/16 07:04 62 20 Bi-pap 06/12/16 04:55 60 18 97 Facial 30 06/12/16 04:00 62 06/12/16 04:00 97.9 80 20 145/67 94 Bi-pap 30 06/12/16 03:50 72 21 95 Facial 30 06/12/16 01:31 68 26 96 Facial 30 06/12/16 01:00 30 06/12/16 00:05 70 23 94 Facial 30 06/12/16 00:00 97.0 66 18 110/70 100 Nasal Cannula 4.0 06/12/16 00:00 62 06/11/16 22:29 97.0 06/11/16 20:48 Nasal Cannula 3.0 32 06/11/16 20:48 98 Nasal Cannula 3.0 32 06/11/16 20:47 69 20 Nasal Cannula 3.0 32 06/11/16 20:09 97.0 66 18 96/74 100 Nasal Cannula 4.0 06/11/16 20:00 66 06/11/16 16:00 96.8 72 16 120/72 100 Nasal Cannula 4.0 06/11/16 16:00 63 Intake and Output 06/11/16 06/12/16 19:00 07:00 Intake Total 750 ml 120 ml Output Total 800 ml 1000 ml Balance -50 ml -880 ml Intake Oral 100 ml IV Total 650 ml 120 ml Output Urine Total 800 ml 1000 ml General Appearance: WD/WN HEENT: normocephalic, atraumatic Respiratory/Chest: chest wall non-tender, lungs clear Cardiovascular: normal peripheral pulses, normal rate Abdomen: normal bowel sounds, soft, non tender Genitourinary: normal external genitalia Skin: no rash 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 Microbiology Date/Time Source Procedure Growth Status 06/10/16 16:35 Blood Blood Culture - Preliminary NO GROWTH AFTER 24 HOURS Resulted 06/10/16 16:15 Blood Blood Culture - Preliminary NO GROWTH AFTER 24 HOURS Resulted 06/10/16 17:50 Urine,Clean Catch Urine Culture - Preliminary NO GROWTH AFTER 24 HOURS Resulted Laboratory Tests 06/12/16 09:25: White Blood Count 8.3, Red Blood Count 3.71L, Hemoglobin 11.1L, Hematocrit 36.3L , Mean Corpuscular Volume 98, Mean Corpuscular Hemoglobin 30.0, Mean Corpuscular Hemoglobin Concent 30.7L, Red Cell Distribution Width 15.5H, Platelet Count 217, Mean Platelet Volume 5.9L, Neutrophils (%) (Auto) 69.4, Lymphocytes (%) (Auto) 18.6L, Monocytes (%) (Auto) 9.9, Eosinophils (%) (Auto) 1.4, Basophils (%) (Auto) 0.8, Sodium Level 142, Potassium Level 4.4, Chloride Level 103, Carbon Dioxide Level 28, Anion Gap 11, Blood Urea Nitrogen 31H, Creatinine 1.4H, Estimat Glomerular Filtration Rate 51.5, Glucose Level 119H, Calcium Level 8.9, Total Bilirubin 0.7, Aspartate Amino Transf (AST/SGOT) 21, Alanine Aminotransferase (ALT/SGPT) 10, Alkaline Phosphatase 105, Pro-B-Type Natriuretic Peptide 6843H, Total Protein 6.3L, Albumin 3.2L, Globulin 3.1, Albumin/Globulin Ratio 1.0 Current Medications Medications (Trade) Dose Ordered Sig/Alec Route PRN Reason Start Time Stop Time Status Last Admin Dose Admin Acetaminophen (Tylenol) 650 mg Q4H PRN ORAL Fever 06/10/16 20:45 07/10/16 20:44 06/11/16 21:30 Albuterol/ Ipratropium (DuoNeb 0.5-3(2.5)mg/3ml) 3 ml Q4H PRN HHN Shortness of Breath 06/11/16 11:45 06/16/16 11:44 Apixaban (Eliquis) 5 mg BID ORAL 06/11/16 09:00 07/11/16 08:59 06/12/16 09:20 Dextrose (Dextrose 50%) STAT PRN IV Hypoglycemia 06/10/16 20:45 07/10/16 20:44 Dextrose STAT PRN IV Hypoglycemia 06/10/16 20:45 07/10/16 20:44 Furosemide/ Dextrose (Lasix/D5W) 100 ml @ 10 mls/hr Q10H IV 06/11/16 13:00 07/11/16 12:59 06/12/16 09:20 Insulin Aspart (NovoLOG) BEFORE MEALS AND HS SUBQ 06/10/16 21:00 07/10/16 20:59 06/12/16 12:16 Lisinopril (Zestril) 10 mg DAILY ORAL 06/12/16 09:00 07/12/16 08:59 06/12/16 09:20 Nebivolol (Bystolic) 10 mg DAILY ORAL 06/11/16 09:00 07/11/16 08:59 06/12/16 09:20 Ondansetron HCl (Zofran) 4 mg Q6H PRN IVP Nausea & Vomiting 06/10/16 20:45 07/10/16 20:44 Polyethylene Glycol (Miralax) 17 gm DAILYPRN PRN ORAL Constipation 06/10/16 20:45 07/10/16 20:44 Spironolactone (Aldactone) 25 mg DAILY ORAL 06/12/16 09:00 07/12/16 08:59 06/12/16 09:20 Tamsulosin HCl (Flomax) 0.4 mg DAILY ORAL 06/11/16 09:00 07/11/16 08:59 06/12/16 09:20 Temazepam (Restoril) 15 mg HSPRN PRN ORAL Insomnia 06/10/16 20:45 06/17/16 20:44 QUYNH BEAR Jun 12, 2016 14:57
--- NOTE | 2016-06-12 15:33 | Internal Med Progress Note ---
Subjective Date of Service: Jun 12, 2016 Physician Name Morse,Allan Attending Physician Taiwo Palma MD Current Medications Medications (Trade) Dose Ordered Sig/Alec Route PRN Reason Start Time Stop Time Status Last Admin Dose Admin Acetaminophen (Tylenol) 650 mg Q4H PRN ORAL Fever 06/10/16 20:45 07/10/16 20:44 06/11/16 21:30 Albuterol/ Ipratropium (DuoNeb 0.5-3(2.5)mg/3ml) 3 ml Q4H PRN HHN Shortness of Breath 06/11/16 11:45 06/16/16 11:44 Apixaban (Eliquis) 5 mg BID ORAL 06/11/16 09:00 07/11/16 08:59 06/12/16 09:20 Dextrose (Dextrose 50%) STAT PRN IV Hypoglycemia 06/10/16 20:45 07/10/16 20:44 Dextrose STAT PRN IV Hypoglycemia 06/10/16 20:45 07/10/16 20:44 Furosemide/ Dextrose (Lasix/D5W) 100 ml @ 10 mls/hr Q10H IV 06/11/16 13:00 07/11/16 12:59 06/12/16 09:20 Insulin Aspart (NovoLOG) BEFORE MEALS AND HS SUBQ 06/10/16 21:00 07/10/16 20:59 06/12/16 12:16 Lisinopril (Zestril) 10 mg DAILY ORAL 06/12/16 09:00 07/12/16 08:59 06/12/16 09:20 Nebivolol (Bystolic) 10 mg DAILY ORAL 06/11/16 09:00 07/11/16 08:59 06/12/16 09:20 Ondansetron HCl (Zofran) 4 mg Q6H PRN IVP Nausea & Vomiting 06/10/16 20:45 07/10/16 20:44 Polyethylene Glycol (Miralax) 17 gm DAILYPRN PRN ORAL Constipation 06/10/16 20:45 07/10/16 20:44 Spironolactone (Aldactone) 25 mg DAILY ORAL 06/12/16 09:00 07/12/16 08:59 06/12/16 09:20 Tamsulosin HCl (Flomax) 0.4 mg DAILY ORAL 06/11/16 09:00 07/11/16 08:59 06/12/16 09:20 Temazepam (Restoril) 15 mg HSPRN PRN ORAL Insomnia 06/10/16 20:45 06/17/16 20:44 Allergies: Coded Allergies: LATEX, NATURAL RUBBER (Verified Allergy, Unknown, 06/10/16) ROS Limited/Unobtainable: No Constitutional: Reports: no symptoms HEENT: Reports: no symptoms Cardiovascular: Reports: no symptoms Respiratory: Reports: shortness of breath Gastrointestinal/Abdominal: Reports: no symptoms Genitourinary: Reports: no symptoms Neurologic/Psychiatric: Reports: no symptoms Subjective 60 YO M admitted with shortness of breath, now congestive heart failure. Cover for Int Med-Dr Palma. DARIAN. On BIPAP Objective Last Vital Signs Date Time Temp Pulse Resp B/P Pulse Ox O2 Delivery O2 Flow Rate FiO2 06/12/16 12:00 62 06/12/16 12:00 96.8 16 106/58 99 Nasal Cannula 3.0 06/12/16 08:37 30 General Appearance: WD/WN, moderate distress, obese EENT: PERRL/EOMI, normal ENT inspection Neck: non-tender, normal alignment, supple, normal inspection Cardiovascular: normal peripheral pulses, normal rate, regular rhythm, no gallop/murmur, no JVD Respiratory/Chest: chest wall non-tender, respiratory distress, decreased breath sounds - right, crackles/rales, rhonchi - bilaterally, expiratory wheezing Abdomen: normal bowel sounds, non tender, soft, no organomegaly, no mass Extremities: normal range of motion 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, no motor/sensory deficits Skin: normal pigmentation, warm/dry Laboratory Tests Test 06/12/16 09:25 White Blood Count 8.3 K/UL (4.8-10.8) Red Blood Count 3.71 M/UL (4.70-6.10) L Hemoglobin 11.1 G/DL (14.2-18.0) L Hematocrit 36.3 % (42.0-52.0) L Mean Corpuscular Volume 98 FL (80-99) Mean Corpuscular Hemoglobin 30.0 PG (27.0-31.0) Mean Corpuscular Hemoglobin Concent 30.7 G/DL (32.0-36.0) L Red Cell Distribution Width 15.5 % (11.6-14.8) H Platelet Count 217 K/UL (150-450) Mean Platelet Volume 5.9 FL (6.5-10.1) L Neutrophils (%) (Auto) 69.4 % (45.0-75.0) Lymphocytes (%) (Auto) 18.6 % (20.0-45.0) L Monocytes (%) (Auto) 9.9 % (1.0-10.0) Eosinophils (%) (Auto) 1.4 % (0.0-3.0) Basophils (%) (Auto) 0.8 % (0.0-2.0) Sodium Level 142 mEQ/L (135-145) Potassium Level 4.4 mEQ/L (3.4-4.9) Chloride Level 103 mEQ/L (98-107) Carbon Dioxide Level 28 mEQ/L (20-30) Anion Gap 11 (5-15) Blood Urea Nitrogen 31 mg/dL (7-23) H Creatinine 1.4 mg/dL (0.7-1.2) H Estimat Glomerular Filtration Rate 51.5 mL/min (>60) Glucose Level 119 mg/dL (74-106) H Calcium Level 8.9 mg/dL (8.6-10.2) Total Bilirubin 0.7 mg/dL (0.0-1.2) Aspartate Amino Transf (AST/SGOT) 21 U/L (5-40) Alanine Aminotransferase (ALT/SGPT) 10 U/L (3-41) Alkaline Phosphatase 105 U/L (40-129) Pro-B-Type Natriuretic Peptide 6843 pg/mL (0-125) H Total Protein 6.3 g/dL (6.6-8.7) L Albumin 3.2 g/dL (3.5-5.2) L Globulin 3.1 g/dL Albumin/Globulin Ratio 1.0 (1.0-2.7) Microbiology Date/Time Source Procedure Growth Status 06/10/16 16:35 Blood Blood Culture - Preliminary NO GROWTH AFTER 24 HOURS Resulted 06/10/16 16:15 Blood Blood Culture - Preliminary NO GROWTH AFTER 24 HOURS Resulted 06/10/16 17:50 Urine,Clean Catch Urine Culture - Preliminary NO GROWTH AFTER 24 HOURS Resulted Intake and Output 06/11/16 06/12/16 19:00 07:00 Intake Total 750 ml 120 ml Output Total 800 ml 1000 ml Balance -50 ml -880 ml Intake Oral 100 ml IV Total 650 ml 120 ml Output Urine Total 800 ml 1000 ml Assessment/Plan Problem List: (1) Respiratory distress Assessment & Plan: Due to CHF and right pleural effusion. On BIPAP. See pulmonary note. (2) CAD (coronary artery disease) (3) Diabetes mellitus Assessment & Plan: Cont novolog sliding scale. (4) Cerebral vascular disease (5) Right hemiparesis (6) Cardiomegaly (7) Pleural effusion, right Assessment & Plan: Right. S/P throacentesis. (8) Peripheral vascular disease Assessment & Plan: S/P stent and toe amputation (9) CHF exacerbation (10) Cardiomyopathy (11) Morbid obesity (12) COPD (chronic obstructive pulmonary disease) (13) HTN (hypertension) Assessment & Plan: Cont lisinopril, spironolactone and bystolic Status: deteriorating ALLAN MORSE Jun 12, 2016 15:33
--- NOTE | 2016-06-12 15:39 | Cardiac Electrophysiology PN ---
Assessment/Plan Assessment/Plan 1. Congestive heart failure. Ruled out for myocardial infarction. Echocardiogram showed ejection of only 35%. His creatinine is within normal range. Continue LAsix, Bystolic, lisinopril and Aldactone. 2. Chronic obstructive pulmonary disease. 3. Questionable atrial fibrillation. The patient is on Eliquis 5 mg b.i.d. Currently, remains in sinus rhythm. 4. Diabetes, on metformin. 5. Morbid obesity. 6. 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 Remained in [facility] records reviewed.Was at Dr Sandoval office 04/23/16 Objective Last 24 Hour Vital Signs Date Time Temp Pulse Resp B/P Pulse Ox O2 Delivery O2 Flow Rate FiO2 06/12/16 12:00 62 06/12/16 12:00 96.8 58 16 106/58 99 Nasal Cannula 3.0 06/12/16 09:20 112/64 06/12/16 08:37 63 16 96 Facial 30 06/12/16 08:00 97.0 64 14 112/64 97 Bi-pap 30 06/12/16 08:00 66 06/12/16 07:05 62 17 96 Facial 30 06/12/16 07:05 Bi-pap 30 06/12/16 07:05 96 Bi-pap 30 06/12/16 07:04 62 20 Bi-pap 06/12/16 04:55 60 18 97 Facial 30 06/12/16 04:00 62 06/12/16 04:00 97.9 80 20 145/67 94 Bi-pap 30 06/12/16 03:50 72 21 95 Facial 30 06/12/16 01:31 68 26 96 Facial 30 06/12/16 01:00 30 06/12/16 00:05 70 23 94 Facial 30 06/12/16 00:00 97.0 66 18 110/70 100 Nasal Cannula 4.0 06/12/16 00:00 62 06/11/16 22:29 97.0 06/11/16 20:48 Nasal Cannula 3.0 32 06/11/16 20:48 98 Nasal Cannula 3.0 32 06/11/16 20:47 69 20 Nasal Cannula 3.0 32 06/11/16 20:09 97.0 66 18 96/74 100 Nasal Cannula 4.0 06/11/16 20:00 66 06/11/16 16:00 96.8 72 16 120/72 100 Nasal Cannula 4.0 06/11/16 16:00 63 Intake and Output 06/11/16 06/12/16 19:00 07:00 Intake Total 750 ml 120 ml Output Total 800 ml 1000 ml Balance -50 ml -880 ml Intake Oral 100 ml IV Total 650 ml 120 ml Output Urine Total 800 ml 1000 ml Laboratory Tests Test 06/12/16 09:25 White Blood Count 8.3 K/UL (4.8-10.8) Red Blood Count 3.71 M/UL (4.70-6.10) L Hemoglobin 11.1 G/DL (14.2-18.0) L Hematocrit 36.3 % (42.0-52.0) L Mean Corpuscular Volume 98 FL (80-99) Mean Corpuscular Hemoglobin 30.0 PG (27.0-31.0) Mean Corpuscular Hemoglobin Concent 30.7 G/DL (32.0-36.0) L Red Cell Distribution Width 15.5 % (11.6-14.8) H Platelet Count 217 K/UL (150-450) Mean Platelet Volume 5.9 FL (6.5-10.1) L Neutrophils (%) (Auto) 69.4 % (45.0-75.0) Lymphocytes (%) (Auto) 18.6 % (20.0-45.0) L Monocytes (%) (Auto) 9.9 % (1.0-10.0) Eosinophils (%) (Auto) 1.4 % (0.0-3.0) Basophils (%) (Auto) 0.8 % (0.0-2.0) Sodium Level 142 mEQ/L (135-145) Potassium Level 4.4 mEQ/L (3.4-4.9) Chloride Level 103 mEQ/L (98-107) Carbon Dioxide Level 28 mEQ/L (20-30) Anion Gap 11 (5-15) Blood Urea Nitrogen 31 mg/dL (7-23) H Creatinine 1.4 mg/dL (0.7-1.2) H Estimat Glomerular Filtration Rate 51.5 mL/min (>60) Glucose Level 119 mg/dL (74-106) H Calcium Level 8.9 mg/dL (8.6-10.2) Total Bilirubin 0.7 mg/dL (0.0-1.2) Aspartate Amino Transf (AST/SGOT) 21 U/L (5-40) Alanine Aminotransferase (ALT/SGPT) 10 U/L (3-41) Alkaline Phosphatase 105 U/L (40-129) Pro-B-Type Natriuretic Peptide 6843 pg/mL (0-125) H Total Protein 6.3 g/dL (6.6-8.7) L Albumin 3.2 g/dL (3.5-5.2) L Globulin 3.1 g/dL Albumin/Globulin Ratio 1.0 (1.0-2.7) Microbiology Date/Time Source Procedure Growth Status 06/10/16 16:35 Blood Blood Culture - Preliminary NO GROWTH AFTER 24 HOURS Resulted 06/10/16 16:15 Blood Blood Culture - Preliminary NO GROWTH AFTER 24 HOURS Resulted 06/10/16 17:50 Urine,Clean Catch Urine Culture - Preliminary NO GROWTH AFTER 24 HOURS Resulted Objective HEENT: mild jugular venous distention. LUNGS: Decreased breath sounds. CARDIOVASCULAR: Showed distant heart sounds with no gallop or rub. ABDOMEN: Morbidly obese. EXTREMITIES: There is 3+ pitting edema. MICHELLE ROWE Jun 12, 2016 15:39
[2016-06-12 16:00] VITALS: BP 98/58
[2016-06-12 17:37] LABS: INR 1.2 (0.9-1.1); PROTHROMBIN TIME 12.3 SEC (9.30-11.50)
[2016-06-12 20:00] VITALS: BP 126/75
[2016-06-13] VITALS: BP 107/70
[2016-06-13 04:00] VITALS: BP 158/75
[2016-06-13] MEDS: NovoLOG Insulin Flexpen SUBQ SCH ×4 (06:14→20:40)
[2016-06-13 06:33] LABS: BASOPHILS % (AUTO) 1.4 % (0.0-2.0); EOSINOPHILS % (AUTO) 2.5 % (0.0-3.0); LYMPHOCYTES % (AUTO) 15.2 % (20.0-45.0); MEAN CORPUSCULAR HEMOGLOBIN 30.2 PG (27.0-31.0); MEAN CORPUSCULAR HGB CONC 31.1 G/DL (32.0-36.0); MEAN CORPUSCULAR VOLUME 97 FL (80-99); MEAN PLATELET VOLUME 6.6 FL (6.5-10.1); MONOCYTES % (AUTO) 7.3 % (1.0-10.0); NEUTROPHILS % (AUTO) 73.7 % (45.0-75.0); PLATELET COUNT 228 K/UL (150-450); RED BLOOD COUNT 3.88 M/UL (4.70-6.10); RED CELL DISTRIBUTION WIDTH 15.6 % (11.6-14.8); WHITE BLOOD COUNT 9.9 K/UL (4.8-10.8)
[2016-06-13 06:57] LABS: ALBUMIN/GLOBULIN RATIO 0.9 (1.0-2.7); CREATININE 1.3 mg/dL (0.7-1.2); GLOMERULAR FILTRATION RATE 56.1 mL/min (>60); POTASSIUM 4.4 mEQ/L (3.4-4.9); TOTAL PROTEIN 6.1 g/dL (6.6-8.7)
[2016-06-13 07:02] LABS: TROPONIN I < 0.30 ng/mL (<=0.30)
[2016-06-13 08:04] VITALS: BP 138/64
[2016-06-13] MEDS: Eliquis 2.5mg tablet ORAL SCH ×2 (08:13→19:07)
[2016-06-13] MEDS: Spironolactone 25mg tab ORAL SCH (08:14)
[2016-06-13] MEDS: Lisinopril 10mg tab ORAL SCH (08:14)
[2016-06-13] MEDS: Tamsulosin 0.4mg cap ORAL SCH (08:14)
--- NOTE | 2016-06-13 11:09 | Diagnostic Imaging Report ---
Indication: DYSPNEA Technique: One view of the chest Comparison: 06/12/2016 Findings: Body habitus severely limits evaluation. Large right-sided pleural effusion is again demonstrated. Mild pulmonary edema persists, stable or perhaps slightly improved. Heart remains enlarged. Impression: Persistent large right pleural effusion. Stable or perhaps slightly improved pulmonary interstitial congestion
--- NOTE | 2016-06-13 11:53 | Pulmonolgy Critical Care Note ---
Critical Care - Asmt/Plan Problems: (1) COPD (chronic obstructive pulmonary disease) (2) Respiratory distress (3) Pleural effusion, right (4) CHF exacerbation (5) HTN (hypertension) (6) Right hemiparesis (7) Cerebral vascular disease (8) CAD (coronary artery disease) (9) Diabetes mellitus (10) Cardiomegaly (11) Morbid obesity Respiratory: monitor respiratory rate, adjust FIO2, CXR Cardiac: continue to monitor HR/BP Renal: F/U I&O Infectious Disease: check cultures Gastrointestinal: continue feedings/current rate Endocrine: monitor blood sugar, continue sliding scale insulin Hematologic: monitor H/H, transfuse if hgb<8.5 Neurologic: PRN Ativan, PRN Morphine, keep patient comfortable Prophylaxis: Protonix Notes Reviewed: cobol engineer, cardio, renal Discussed with: nurses, consultants, child support case officerdata science and iot manager - Objective Last 24 Hour Vital Signs Date Time Temp Pulse Resp B/P Pulse Ox O2 Delivery O2 Flow Rate FiO2 06/13/16 08:57 98 Nasal Cannula 3.0 32 06/13/16 08:14 138/64 06/13/16 08:04 97.7 70 21 138/64 95 Bi-pap 30 70 06/13/16 08:00 68 06/13/16 06:39 68 15 98 Facial 30 06/13/16 06:35 98 Bi-pap 30 06/13/16 06:35 68 15 Bi-pap 30 06/13/16 05:30 64 14 98 Facial 30 06/13/16 04:00 68 06/13/16 04:00 30 06/13/16 04:00 97.5 67 14 158/75 98 Bi-pap 30 06/13/16 03:30 65 14 97 Facial 30 06/13/16 01:30 60 14 96 Facial 30 06/13/16 00:00 65 06/13/16 00:00 30 06/13/16 00:00 97.5 64 20 107/70 98 Bi-pap 30 06/12/16 23:15 62 18 97 Facial 30 06/12/16 22:30 30 06/12/16 20:00 66 06/12/16 20:00 96.8 66 22 126/75 98 Nasal Cannula 3.0 06/12/16 19:30 60 20 Nasal Cannula 2.0 28 06/12/16 19:30 Nasal Cannula 2.0 28 06/12/16 19:30 95 Nasal Cannula 2.0 28 06/12/16 16:00 97.5 66 22 98/58 100 Nasal Cannula 3.0 06/12/16 16:00 64 06/12/16 12:00 62 06/12/16 12:00 96.8 58 16 106/58 99 Nasal Cannula 3.0 Status: awake Condition: critical, improving Neck: full ROM Lungs: clear Heart: HR/BP stable Abdomen: soft, non-tender Extremities: no C/C/E Decubiti: location Micro: Microbiology Date/Time Source Procedure Growth Status 06/10/16 16:35 Blood Blood Culture - Preliminary NO GROWTH AFTER 48 HOURS Resulted 06/10/16 16:15 Blood Blood Culture - Preliminary NO GROWTH AFTER 48 HOURS Resulted 06/10/16 17:50 Urine,Clean Catch Urine Culture - Final NO GROWTH AFTER 48 HOURS Complete Accucheck: 127 Critical Care - Subjective ROS Limited/Unobtainable: No Condition: critical, improving EKG Rhythm: Sinus Rhythm FI02: 32 Vent Support Breath Rate: 14 Vent Support Mode: BiLevel Sputum Amount: None Drips: lasix drip I&O: Intake and Output 06/12/16 06/13/16 19:00 07:00 Intake Total 110 ml 120 ml Output Total 1800 ml 4100 ml Balance -1690 ml -3980 ml IV Total 110 ml 120 ml Output Urine Total 1800 ml 4100 ml # Bowel Movements 2 CXR: slight improvement Labs: Laboratory Tests Test 06/12/16 16:45 06/13/16 05:35 Prothrombin Time 12.3 SEC (9.30-11.50) H Prothromb Time International Ratio 1.2 (0.9-1.1) H Activated Partial Thromboplast Time 27 SEC (23-33) White Blood Count 9.9 K/UL (4.8-10.8) Red Blood Count 3.88 M/UL (4.70-6.10) L Hemoglobin 11.7 G/DL (14.2-18.0) L Hematocrit 37.6 % (42.0-52.0) L Mean Corpuscular Volume 97 FL (80-99) Mean Corpuscular Hemoglobin 30.2 PG (27.0-31.0) Mean Corpuscular Hemoglobin Concent 31.1 G/DL (32.0-36.0) L Red Cell Distribution Width 15.6 % (11.6-14.8) H Platelet Count 228 K/UL (150-450) Mean Platelet Volume 6.6 FL (6.5-10.1) Neutrophils (%) (Auto) 73.7 % (45.0-75.0) Lymphocytes (%) (Auto) 15.2 % (20.0-45.0) L Monocytes (%) (Auto) 7.3 % (1.0-10.0) Eosinophils (%) (Auto) 2.5 % (0.0-3.0) Basophils (%) (Auto) 1.4 % (0.0-2.0) Sodium Level 141 mEQ/L (135-145) Potassium Level 4.4 mEQ/L (3.4-4.9) Chloride Level 101 mEQ/L (98-107) Carbon Dioxide Level 29 mEQ/L (20-30) Anion Gap 11 (5-15) Blood Urea Nitrogen 31 mg/dL (7-23) H Creatinine 1.3 mg/dL (0.7-1.2) H Estimat Glomerular Filtration Rate 56.1 mL/min (>60) Glucose Level 155 mg/dL (74-106) H Calcium Level 9.0 mg/dL (8.6-10.2) Total Bilirubin 0.8 mg/dL (0.0-1.2) Aspartate Amino Transf (AST/SGOT) 25 U/L (5-40) Alanine Aminotransferase (ALT/SGPT) 16 U/L (3-41) Alkaline Phosphatase 109 U/L (40-129) Troponin I < 0.30 ng/mL (<=0.30) Pro-B-Type Natriuretic Peptide 7144 pg/mL (0-125) H Total Protein 6.1 g/dL (6.6-8.7) L Albumin 3.0 g/dL (3.5-5.2) L Globulin 3.1 g/dL Albumin/Globulin Ratio 0.9 (1.0-2.7) L QUYNH BEAR Jun 13, 2016 11:53
[2016-06-13 12:00] VITALS: BP 119/63
--- NOTE | 2016-06-13 13:22 | Internal Med Progress Note ---
Subjective Date of Service: Jun 13, 2016 Physician Name Morse,Allan Attending Physician Taiwo Palma MD Current Medications Medications (Trade) Dose Ordered Sig/Alec Route PRN Reason Start Time Stop Time Status Last Admin Dose Admin Acetaminophen (Tylenol) 650 mg Q4H PRN ORAL Fever 06/10/16 20:45 07/10/16 20:44 06/11/16 21:30 Albuterol/ Ipratropium (DuoNeb 0.5-3(2.5)mg/3ml) 3 ml Q4H PRN HHN Shortness of Breath 06/11/16 11:45 06/16/16 11:44 Apixaban (Eliquis) 5 mg BID ORAL 06/11/16 09:00 07/11/16 08:59 06/13/16 08:13 Dextrose (Dextrose 50%) STAT PRN IV Hypoglycemia 06/10/16 20:45 07/10/16 20:44 Dextrose STAT PRN IV Hypoglycemia 06/10/16 20:45 07/10/16 20:44 Furosemide/ Dextrose (Lasix/D5W) 100 ml @ 10 mls/hr Q10H IV 06/11/16 13:00 07/11/16 12:59 06/13/16 04:59 Insulin Aspart (NovoLOG) BEFORE MEALS AND HS SUBQ 06/10/16 21:00 07/10/16 20:59 06/13/16 12:02 Lisinopril (Zestril) 10 mg DAILY ORAL 06/12/16 09:00 07/12/16 08:59 06/13/16 08:14 Nebivolol (Bystolic) 10 mg DAILY ORAL 06/11/16 09:00 07/11/16 08:59 06/13/16 08:14 Ondansetron HCl (Zofran) 4 mg Q6H PRN IVP Nausea & Vomiting 06/10/16 20:45 07/10/16 20:44 Polyethylene Glycol (Miralax) 17 gm DAILYPRN PRN ORAL Constipation 06/10/16 20:45 07/10/16 20:44 06/13/16 08:14 Spironolactone (Aldactone) 25 mg DAILY ORAL 06/12/16 09:00 07/12/16 08:59 06/13/16 08:14 Tamsulosin HCl (Flomax) 0.4 mg DAILY ORAL 06/11/16 09:00 07/11/16 08:59 06/13/16 08:14 Temazepam (Restoril) 15 mg HSPRN PRN ORAL Insomnia 06/10/16 20:45 06/17/16 20:44 Allergies: Coded Allergies: LATEX, NATURAL RUBBER (Verified Allergy, Unknown, 06/10/16) ROS Limited/Unobtainable: No Constitutional: Reports: no symptoms HEENT: Reports: no symptoms Cardiovascular: Reports: no symptoms Respiratory: Reports: shortness of breath Gastrointestinal/Abdominal: Reports: no symptoms Genitourinary: Reports: no symptoms Neurologic/Psychiatric: Reports: no symptoms Subjective 60 YO M admitted with shortness of breath, now congestive heart failure. Cover for Int Michel-Dr Palma. DARIAN. Tolerating nasal canula. Refused thoracentesis Objective Last Vital Signs Date Time Temp Pulse Resp B/P Pulse Ox O2 Delivery O2 Flow Rate FiO2 06/13/16 12:00 96.4 68 18 119/63 98 Bi-pap 30 06/13/16 08:57 3.0 Laboratory Tests Test 06/12/16 16:45 06/13/16 05:35 Prothrombin Time 12.3 SEC (9.30-11.50) H Prothromb Time International Ratio 1.2 (0.9-1.1) H Activated Partial Thromboplast Time 27 SEC (23-33) White Blood Count 9.9 K/UL (4.8-10.8) Red Blood Count 3.88 M/UL (4.70-6.10) L Hemoglobin 11.7 G/DL (14.2-18.0) L Hematocrit 37.6 % (42.0-52.0) L Mean Corpuscular Volume 97 FL (80-99) Mean Corpuscular Hemoglobin 30.2 PG (27.0-31.0) Mean Corpuscular Hemoglobin Concent 31.1 G/DL (32.0-36.0) L Red Cell Distribution Width 15.6 % (11.6-14.8) H Platelet Count 228 K/UL (150-450) Mean Platelet Volume 6.6 FL (6.5-10.1) Neutrophils (%) (Auto) 73.7 % (45.0-75.0) Lymphocytes (%) (Auto) 15.2 % (20.0-45.0) L Monocytes (%) (Auto) 7.3 % (1.0-10.0) Eosinophils (%) (Auto) 2.5 % (0.0-3.0) Basophils (%) (Auto) 1.4 % (0.0-2.0) Sodium Level 141 mEQ/L (135-145) Potassium Level 4.4 mEQ/L (3.4-4.9) Chloride Level 101 mEQ/L (98-107) Carbon Dioxide Level 29 mEQ/L (20-30) Anion Gap 11 (5-15) Blood Urea Nitrogen 31 mg/dL (7-23) H Creatinine 1.3 mg/dL (0.7-1.2) H Estimat Glomerular Filtration Rate 56.1 mL/min (>60) Glucose Level 155 mg/dL (74-106) H Calcium Level 9.0 mg/dL (8.6-10.2) Total Bilirubin 0.8 mg/dL (0.0-1.2) Aspartate Amino Transf (AST/SGOT) 25 U/L (5-40) Alanine Aminotransferase (ALT/SGPT) 16 U/L (3-41) Alkaline Phosphatase 109 U/L (40-129) Troponin I < 0.30 ng/mL (<=0.30) Pro-B-Type Natriuretic Peptide 7144 pg/mL (0-125) H Total Protein 6.1 g/dL (6.6-8.7) L Albumin 3.0 g/dL (3.5-5.2) L Globulin 3.1 g/dL Albumin/Globulin Ratio 0.9 (1.0-2.7) L Microbiology Date/Time Source Procedure Growth Status 06/10/16 16:35 Blood Blood Culture - Preliminary NO GROWTH AFTER 48 HOURS Resulted 06/10/16 16:15 Blood Blood Culture - Preliminary NO GROWTH AFTER 48 HOURS Resulted 06/10/16 17:50 Urine,Clean Catch Urine Culture - Final NO GROWTH AFTER 48 HOURS Complete Intake and Output 06/12/16 06/13/16 19:00 07:00 Intake Total 110 ml 120 ml Output Total 1800 ml 4100 ml Balance -1690 ml -3980 ml IV Total 110 ml 120 ml Output Urine Total 1800 ml 4100 ml # Bowel Movements 2 Objective General Appearance: WD/WN, moderate distress, obese EENT: PERRL/EOMI, normal ENT inspection Neck: non-tender, normal alignment, supple, normal inspection Cardiovascular: normal peripheral pulses, normal rate, regular rhythm, no gallop/murmur, no JVD Respiratory/Chest: chest wall non-tender, respiratory distress, decreased breath sounds - right, crackles/rales, rhonchi - bilaterally, expiratory wheezing Abdomen: normal bowel sounds, non tender, soft, no organomegaly, no mass Extremities: normal range of motion Neurologic: 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 Tolerating nasal canula. See pulmonary note. (2) CAD (coronary artery disease) (3) Diabetes mellitus Assessment & Plan: Cont novolog sliding scale. (4) Cerebral vascular disease (5) Right hemiparesis (6) Cardiomegaly (7) Pleural effusion, right Assessment & Plan: Right. Refused throacentesis. (8) Peripheral vascular disease Assessment & Plan: S/P stent and toe amputation (9) CHF exacerbation (10) Cardiomyopathy (11) Morbid obesity (12) COPD (chronic obstructive pulmonary disease) (13) HTN (hypertension) Assessment & Plan: Cont lisinopril, spironolactone and bystolic Status: progressing ALLAN MORSE Jun 13, 2016 13:22
[2016-06-13 16:10] VITALS: BP 119/66
--- NOTE | 2016-06-13 16:59 | Cardiac Electrophysiology PN ---
Assessment/Plan Assessment/Plan 1. Congestive heart failure. Ruled out for myocardial infarction. EF 35%. His creatinine is within normal range. Continue Lasix, Bystolic, lisinopril and Aldactone. 2. Chronic obstructive pulmonary disease. 3. Paroxysmal atrial fibrillation. The patient is on Eliquis 5 mg b.i.d. remains in sinus rhythm. 4. Diabetes, on metformin. 5. Morbid obesity. 6. 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 Remained in SR.Was at Dr. Sandoval office 04/23/16. Spouse at bedside. Objective Last 24 Hour Vital Signs Date Time Temp Pulse Resp B/P Pulse Ox O2 Delivery O2 Flow Rate FiO2 06/13/16 16:10 96.6 66 13 119/66 98 Nasal Cannula 3.0 06/13/16 16:00 66 06/13/16 12:00 96.4 68 18 119/63 98 Bi-pap 30 06/13/16 12:00 70 06/13/16 08:57 98 Nasal Cannula 3.0 32 06/13/16 08:14 138/64 06/13/16 08:04 97.7 70 21 138/64 95 Bi-pap 30 70 06/13/16 08:00 68 06/13/16 06:39 68 15 98 Facial 30 06/13/16 06:35 98 Bi-pap 30 06/13/16 06:35 68 15 Bi-pap 30 06/13/16 05:30 64 14 98 Facial 30 06/13/16 04:00 68 06/13/16 04:00 30 06/13/16 04:00 97.5 67 14 158/75 98 Bi-pap 30 06/13/16 03:30 65 14 97 Facial 30 06/13/16 01:30 60 14 96 Facial 30 06/13/16 00:00 65 06/13/16 00:00 30 06/13/16 00:00 97.5 64 20 107/70 98 Bi-pap 30 06/12/16 23:15 62 18 97 Facial 30 06/12/16 22:30 30 06/12/16 20:00 66 06/12/16 20:00 96.8 66 22 126/75 98 Nasal Cannula 3.0 06/12/16 19:30 60 20 Nasal Cannula 2.0 28 06/12/16 19:30 Nasal Cannula 2.0 28 06/12/16 19:30 95 Nasal Cannula 2.0 28 Intake and Output 06/12/16 06/13/16 19:00 07:00 Intake Total 110 ml 120 ml Output Total 1800 ml 4100 ml Balance -1690 ml -3980 ml IV Total 110 ml 120 ml Output Urine Total 1800 ml 4100 ml # Bowel Movements 2 Laboratory Tests Test 06/13/16 05:35 White Blood Count 9.9 K/UL (4.8-10.8) Red Blood Count 3.88 M/UL (4.70-6.10) L Hemoglobin 11.7 G/DL (14.2-18.0) L Hematocrit 37.6 % (42.0-52.0) L Mean Corpuscular Volume 97 FL (80-99) Mean Corpuscular Hemoglobin 30.2 PG (27.0-31.0) Mean Corpuscular Hemoglobin Concent 31.1 G/DL (32.0-36.0) L Red Cell Distribution Width 15.6 % (11.6-14.8) H Platelet Count 228 K/UL (150-450) Mean Platelet Volume 6.6 FL (6.5-10.1) Neutrophils (%) (Auto) 73.7 % (45.0-75.0) Lymphocytes (%) (Auto) 15.2 % (20.0-45.0) L Monocytes (%) (Auto) 7.3 % (1.0-10.0) Eosinophils (%) (Auto) 2.5 % (0.0-3.0) Basophils (%) (Auto) 1.4 % (0.0-2.0) Sodium Level 141 mEQ/L (135-145) Potassium Level 4.4 mEQ/L (3.4-4.9) Chloride Level 101 mEQ/L (98-107) Carbon Dioxide Level 29 mEQ/L (20-30) Anion Gap 11 (5-15) Blood Urea Nitrogen 31 mg/dL (7-23) H Creatinine 1.3 mg/dL (0.7-1.2) H Estimat Glomerular Filtration Rate 56.1 mL/min (>60) Glucose Level 155 mg/dL (74-106) H Calcium Level 9.0 mg/dL (8.6-10.2) Total Bilirubin 0.8 mg/dL (0.0-1.2) Aspartate Amino Transf (AST/SGOT) 25 U/L (5-40) Alanine Aminotransferase (ALT/SGPT) 16 U/L (3-41) Alkaline Phosphatase 109 U/L (40-129) Troponin I < 0.30 ng/mL (<=0.30) Pro-B-Type Natriuretic Peptide 7144 pg/mL (0-125) H Total Protein 6.1 g/dL (6.6-8.7) L Albumin 3.0 g/dL (3.5-5.2) L Globulin 3.1 g/dL Albumin/Globulin Ratio 0.9 (1.0-2.7) L Microbiology Date/Time Source Procedure Growth Status 06/10/16 17:50 Urine,Clean Catch Urine Culture - Final NO GROWTH AFTER 48 HOURS Complete Objective HEENT: mild jugular venous distention. LUNGS: Decreased breath sounds. CARDIOVASCULAR: Showed distant heart sounds with no gallop or rub. ABDOMEN: Morbidly obese. EXTREMITIES: There is 3+ pitting edema. MICHELLE ROWE Jun 13, 2016 16:59
[2016-06-13 20:00] VITALS: BP 122/52
[2016-06-14] VITALS: BP 117/68
[2016-06-14 04:00] VITALS: BP 117/74
[2016-06-14] MEDS: NovoLOG Insulin Flexpen SUBQ SCH ×4 (06:30→21:23)
[2016-06-14 08:00] VITALS: BP 130/66
[2016-06-14] MEDS: Tamsulosin 0.4mg cap ORAL SCH (08:50)
[2016-06-14] MEDS: Spironolactone 25mg tab ORAL SCH (08:51)
[2016-06-14] MEDS: Eliquis 2.5mg tablet ORAL SCH ×2 (08:51→18:17)
[2016-06-14] MEDS: Lisinopril 10mg tab ORAL SCH (08:51)
--- NOTE | 2016-06-14 11:17 | Pulmonology Progress Note ---
Assessment/Plan Problems: (1) Respiratory distress (2) CHF exacerbation (3) COPD (chronic obstructive pulmonary disease) (4) Morbid obesity (5) Cardiomyopathy Assessment/Plan still on lasix drip check electrolytes f/u on cxr daily will need thoracentesis, considering the size of the effusion, refused cxr in am check electrotlyes pt/ot Subjective Interval Events: feeling better, still diuresing Allergies: Coded Allergies: LATEX, NATURAL RUBBER (Verified Allergy, Unknown, 06/10/16) Objective Last 24 Hour Vital Signs Date Time Temp Pulse Resp B/P Pulse Ox O2 Delivery O2 Flow Rate FiO2 06/14/16 08:57 73 06/14/16 08:51 130/66 06/14/16 08:30 Nasal Cannula 3.0 32 06/14/16 08:30 70 18 Nasal Cannula 3.0 32 06/14/16 08:30 99 Nasal Cannula 3.0 32 06/14/16 08:00 96.8 71 20 130/66 99 Nasal Cannula 4.0 06/14/16 08:00 73 06/14/16 04:00 70 06/14/16 04:00 96.1 70 18 117/74 100 Nasal Cannula 4.0 06/14/16 00:00 97.7 72 20 117/68 98 Nasal Cannula 4.0 06/13/16 23:29 68 06/13/16 20:00 95.7 71 14 122/52 99 Nasal Cannula 3.0 06/13/16 20:00 73 06/13/16 19:12 73 18 Nasal Cannula 3.0 32 06/13/16 19:12 Nasal Cannula 3.0 32 06/13/16 19:12 98 Nasal Cannula 3.0 32 06/13/16 16:10 96.6 66 13 119/66 98 Nasal Cannula 3.0 06/13/16 16:00 66 06/13/16 12:00 96.4 68 18 119/63 98 Bi-pap 30 06/13/16 12:00 70 Intake and Output 06/13/16 06/14/16 19:00 07:00 Intake Total 300 ml 324.16 ml Output Total 2600 ml 3100 ml Balance -2300 ml -2775.84 ml Intake Oral 180 ml 240 ml IV Total 120 ml 84.16 ml Output Urine Total 2600 ml 3100 ml # Bowel Movements 1 1 General Appearance: WD/WN HEENT: atraumatic, anicteric Respiratory/Chest: chest wall non-tender, lungs clear Abdomen: normal bowel sounds, soft, non tender, no organomegaly Genitourinary: normal external genitalia Extremities: no cyanosis 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, no motor/sensory deficits Current Medications Medications (Trade) Dose Ordered Sig/Alec Route PRN Reason Start Time Stop Time Status Last Admin Dose Admin Acetaminophen (Tylenol) 650 mg Q4H PRN ORAL Fever 06/10/16 20:45 07/10/16 20:44 06/11/16 21:30 Albuterol/ Ipratropium (DuoNeb 0.5-3(2.5)mg/3ml) 3 ml Q4H PRN HHN Shortness of Breath 06/11/16 11:45 06/16/16 11:44 Apixaban (Eliquis) 5 mg BID ORAL 06/11/16 09:00 07/11/16 08:59 06/14/16 08:51 Dextrose (Dextrose 50%) STAT PRN IV Hypoglycemia 06/10/16 20:45 07/10/16 20:44 Dextrose STAT PRN IV Hypoglycemia 06/10/16 20:45 07/10/16 20:44 Furosemide/ Dextrose (Lasix/D5W) 100 ml @ 10 mls/hr Q10H IV 06/11/16 13:00 07/11/16 12:59 06/14/16 01:34 Insulin Aspart (NovoLOG) BEFORE MEALS AND HS SUBQ 06/10/16 21:00 07/10/16 20:59 06/14/16 06:30 Lisinopril (Zestril) 10 mg DAILY ORAL 06/12/16 09:00 07/12/16 08:59 06/14/16 08:51 Nebivolol (Bystolic) 10 mg DAILY ORAL 06/11/16 09:00 07/11/16 08:59 06/14/16 08:51 Ondansetron HCl (Zofran) 4 mg Q6H PRN IVP Nausea & Vomiting 06/10/16 20:45 07/10/16 20:44 Polyethylene Glycol (Miralax) 17 gm DAILYPRN PRN ORAL Constipation 06/10/16 20:45 07/10/16 20:44 06/13/16 08:14 Spironolactone (Aldactone) 25 mg DAILY ORAL 06/12/16 09:00 07/12/16 08:59 06/14/16 08:51 Tamsulosin HCl (Flomax) 0.4 mg DAILY ORAL 06/11/16 09:00 07/11/16 08:59 06/14/16 08:50 Temazepam (Restoril) 15 mg HSPRN PRN ORAL Insomnia 06/10/16 20:45 06/17/16 20:44 QUYNH BEAR Jun 14, 2016 11:16
[2016-06-14 12:00] VITALS: BP 126/63
[2016-06-14 12:17] LABS: BASOPHILS % (AUTO) 0.7 % (0.0-2.0); EOSINOPHILS % (AUTO) 2.4 % (0.0-3.0); LYMPHOCYTES % (AUTO) 16.8 % (20.0-45.0); MEAN CORPUSCULAR HGB CONC 31.9 G/DL (32.0-36.0); MEAN CORPUSCULAR VOLUME 94 FL (80-99); MEAN PLATELET VOLUME 6.6 FL (6.5-10.1); MONOCYTES % (AUTO) 9.4 % (1.0-10.0); NEUTROPHILS % (AUTO) 70.7 % (45.0-75.0); PLATELET COUNT 219 K/UL (150-450); RED BLOOD COUNT 3.85 M/UL (4.70-6.10); RED CELL DISTRIBUTION WIDTH 14.7 % (11.6-14.8); WHITE BLOOD COUNT 8.7 K/UL (4.8-10.8)
--- NOTE | 2016-06-14 12:35 | Diagnostic Imaging Report ---
APPROVED REPORT CPT Code: 56544 Present Symptoms Shortness of breath Comments: Technically difficult study due to vessel depth (mid-thigh and calf area). BILATERAL: Imaging reveals a patent deep venous system bilaterally. There is no evidence of thrombus within the common femoral, or popliteal segments. The greater saphenous veins are also within normal limits. Doppler indicates normal spontaneous flow within these segments. The superficial femoral or tibial segments were not well visualized.
[2016-06-14 12:53] LABS: CALCIUM 9.1 mg/dL (8.6-10.2); CREATININE 1.3 mg/dL (0.7-1.2); GLOMERULAR FILTRATION RATE 56.1 mL/min (>60); POTASSIUM 4.1 mEQ/L (3.4-4.9); TOTAL PROTEIN 5.7 g/dL (6.6-8.7)
[2016-06-14 16:07] VITALS: BP 112/59
--- NOTE | 2016-06-14 17:28 | Cardiac Electrophysiology PN ---
Assessment/Plan Assessment/Plan 1. Congestive heart failure. Ruled out for myocardial infarction. EF 35%. His creatinine is within normal range. Change Lasix to 60 iv tid.Continue Bystolic , lisinopril and Aldactone. 2. Chronic obstructive pulmonary disease. 3. Paroxysmal atrial fibrillation. On Eliquis 5 mg b.i.d. remains in sinus rhythm. 4. Diabetes, on metformin. 5. Morbid obesity. 6. 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 Remained in SR.Drinks a lot of fluids! . Objective Last 24 Hour Vital Signs Date Time Temp Pulse Resp B/P Pulse Ox O2 Delivery O2 Flow Rate FiO2 06/14/16 16:07 97.2 67 17 112/59 100 Nasal Cannula 3.0 06/14/16 12:00 70 06/14/16 12:00 98.1 69 20 126/63 100 Nasal Cannula 4.0 06/14/16 08:57 73 06/14/16 08:51 130/66 06/14/16 08:30 Nasal Cannula 3.0 32 06/14/16 08:30 70 18 Nasal Cannula 3.0 32 06/14/16 08:30 99 Nasal Cannula 3.0 32 06/14/16 08:00 96.8 71 20 130/66 99 Nasal Cannula 4.0 06/14/16 08:00 73 06/14/16 04:00 70 06/14/16 04:00 96.1 70 18 117/74 100 Nasal Cannula 4.0 06/14/16 00:00 97.7 72 20 117/68 98 Nasal Cannula 4.0 06/13/16 23:29 68 06/13/16 20:00 95.7 71 14 122/52 99 Nasal Cannula 3.0 06/13/16 20:00 73 06/13/16 19:12 73 18 Nasal Cannula 3.0 32 06/13/16 19:12 Nasal Cannula 3.0 32 06/13/16 19:12 98 Nasal Cannula 3.0 32 Intake and Output 06/13/16 06/14/16 19:00 07:00 Intake Total 300 ml 324.16 ml Output Total 2600 ml 3100 ml Balance -2300 ml -2775.84 ml Intake Oral 180 ml 240 ml IV Total 120 ml 84.16 ml Output Urine Total 2600 ml 3100 ml # Bowel Movements 1 1 Laboratory Tests Test 06/14/16 12:12 White Blood Count 8.7 K/UL (4.8-10.8) Red Blood Count 3.85 M/UL (4.70-6.10) L Hemoglobin 11.6 G/DL (14.2-18.0) L Hematocrit 36.2 % (42.0-52.0) L Mean Corpuscular Volume 94 FL (80-99) Mean Corpuscular Hemoglobin 30.0 PG (27.0-31.0) Mean Corpuscular Hemoglobin Concent 31.9 G/DL (32.0-36.0) L Red Cell Distribution Width 14.7 % (11.6-14.8) Platelet Count 219 K/UL (150-450) Mean Platelet Volume 6.6 FL (6.5-10.1) Neutrophils (%) (Auto) 70.7 % (45.0-75.0) Lymphocytes (%) (Auto) 16.8 % (20.0-45.0) L Monocytes (%) (Auto) 9.4 % (1.0-10.0) Eosinophils (%) (Auto) 2.4 % (0.0-3.0) Basophils (%) (Auto) 0.7 % (0.0-2.0) Sodium Level 140 mEQ/L (135-145) Potassium Level 4.1 mEQ/L (3.4-4.9) Chloride Level 96 mEQ/L (98-107) L Carbon Dioxide Level 33 mEQ/L (20-30) H Anion Gap 11 (5-15) Blood Urea Nitrogen 31 mg/dL (7-23) H Creatinine 1.3 mg/dL (0.7-1.2) H Estimat Glomerular Filtration Rate 56.1 mL/min (>60) Glucose Level 177 mg/dL (74-106) H Calcium Level 9.1 mg/dL (8.6-10.2) Total Bilirubin 0.8 mg/dL (0.0-1.2) Aspartate Amino Transf (AST/SGOT) 23 U/L (5-40) Alanine Aminotransferase (ALT/SGPT) 13 U/L (3-41) Alkaline Phosphatase 102 U/L (40-129) Pro-B-Type Natriuretic Peptide 9225 pg/mL (0-125) H Total Protein 5.7 g/dL (6.6-8.7) L Albumin 2.9 g/dL (3.5-5.2) L Globulin 2.8 g/dL Albumin/Globulin Ratio 1.0 (1.0-2.7) Objective HEENT: mild jugular venous distention. LUNGS: Decreased breath sounds. CARDIOVASCULAR: Showed distant heart sounds with no gallop or rub. ABDOMEN: Morbidly obese. EXTREMITIES: 3+ pitting edema. MICHELLE ROWE Jun 14, 2016 17:28
--- NOTE | 2016-06-14 18:24 | Internal Med Progress Note ---
Subjective Date of Service: Jun 14, 2016 Physician Name Morse,Allan Attending Physician Taiwo Palma MD Current Medications Medications (Trade) Dose Ordered Sig/Alec Route PRN Reason Start Time Stop Time Status Last Admin Dose Admin Acetaminophen (Tylenol) 650 mg Q4H PRN ORAL Fever 06/10/16 20:45 07/10/16 20:44 06/11/16 21:30 Albuterol/ Ipratropium (DuoNeb 0.5-3(2.5)mg/3ml) 3 ml Q4H PRN HHN Shortness of Breath 06/11/16 11:45 06/16/16 11:44 Apixaban (Eliquis) 5 mg BID ORAL 06/11/16 09:00 07/11/16 08:59 06/14/16 18:17 Dextrose (Dextrose 50%) STAT PRN IV Hypoglycemia 06/10/16 20:45 07/10/16 20:44 Furosemide (Lasix) 60 mg EVERY 8 HOURS IV 06/14/16 22:00 07/14/16 21:59 Insulin Aspart (NovoLOG) BEFORE MEALS AND HS SUBQ 06/10/16 21:00 07/10/16 20:59 06/14/16 16:54 Lisinopril (Zestril) 10 mg DAILY ORAL 06/12/16 09:00 07/12/16 08:59 06/14/16 08:51 Nebivolol (Bystolic) 10 mg DAILY ORAL 06/11/16 09:00 07/11/16 08:59 06/14/16 08:51 Ondansetron HCl (Zofran) 4 mg Q6H PRN IVP Nausea & Vomiting 06/10/16 20:45 07/10/16 20:44 Polyethylene Glycol (Miralax) 17 gm DAILYPRN PRN ORAL Constipation 06/10/16 20:45 07/10/16 20:44 06/13/16 08:14 Spironolactone (Aldactone) 25 mg DAILY ORAL 06/12/16 09:00 07/12/16 08:59 06/14/16 08:51 Tamsulosin HCl (Flomax) 0.4 mg DAILY ORAL 06/11/16 09:00 07/11/16 08:59 06/14/16 08:50 Temazepam (Restoril) 15 mg HSPRN PRN ORAL Insomnia 06/10/16 20:45 06/17/16 20:44 Allergies: Coded Allergies: LATEX, NATURAL RUBBER (Verified Allergy, Unknown, 06/10/16) ROS Limited/Unobtainable: No Constitutional: Reports: no symptoms HEENT: Reports: no symptoms Cardiovascular: Reports: no symptoms Respiratory: Reports: shortness of breath Gastrointestinal/Abdominal: Reports: no symptoms Genitourinary: Reports: no symptoms Neurologic/Psychiatric: Reports: no symptoms Subjective 60 YO M admitted with shortness of breath, now congestive heart failure. Cover for Int Med-Dr Palma. DARIAN. Tolerating nasal canula. Refused thoracentesis Objective Last Vital Signs Date Time Temp Pulse Resp B/P Pulse Ox O2 Delivery O2 Flow Rate FiO2 06/14/16 16:07 97.2 67 17 112/59 100 Nasal Cannula 3.0 06/14/16 08:30 32 Laboratory Tests Test 06/14/16 12:12 White Blood Count 8.7 K/UL (4.8-10.8) Red Blood Count 3.85 M/UL (4.70-6.10) L Hemoglobin 11.6 G/DL (14.2-18.0) L Hematocrit 36.2 % (42.0-52.0) L Mean Corpuscular Volume 94 FL (80-99) Mean Corpuscular Hemoglobin 30.0 PG (27.0-31.0) Mean Corpuscular Hemoglobin Concent 31.9 G/DL (32.0-36.0) L Red Cell Distribution Width 14.7 % (11.6-14.8) Platelet Count 219 K/UL (150-450) Mean Platelet Volume 6.6 FL (6.5-10.1) Neutrophils (%) (Auto) 70.7 % (45.0-75.0) Lymphocytes (%) (Auto) 16.8 % (20.0-45.0) L Monocytes (%) (Auto) 9.4 % (1.0-10.0) Eosinophils (%) (Auto) 2.4 % (0.0-3.0) Basophils (%) (Auto) 0.7 % (0.0-2.0) Sodium Level 140 mEQ/L (135-145) Potassium Level 4.1 mEQ/L (3.4-4.9) Chloride Level 96 mEQ/L (98-107) L Carbon Dioxide Level 33 mEQ/L (20-30) H Anion Gap 11 (5-15) Blood Urea Nitrogen 31 mg/dL (7-23) H Creatinine 1.3 mg/dL (0.7-1.2) H Estimat Glomerular Filtration Rate 56.1 mL/min (>60) Glucose Level 177 mg/dL (74-106) H Calcium Level 9.1 mg/dL (8.6-10.2) Total Bilirubin 0.8 mg/dL (0.0-1.2) Aspartate Amino Transf (AST/SGOT) 23 U/L (5-40) Alanine Aminotransferase (ALT/SGPT) 13 U/L (3-41) Alkaline Phosphatase 102 U/L (40-129) Pro-B-Type Natriuretic Peptide 9225 pg/mL (0-125) H Total Protein 5.7 g/dL (6.6-8.7) L Albumin 2.9 g/dL (3.5-5.2) L Globulin 2.8 g/dL Albumin/Globulin Ratio 1.0 (1.0-2.7) Intake and Output 06/13/16 06/14/16 19:00 07:00 Intake Total 300 ml 324.16 ml Output Total 2600 ml 3100 ml Balance -2300 ml -2775.84 ml Intake Oral 180 ml 240 ml IV Total 120 ml 84.16 ml Output Urine Total 2600 ml 3100 ml # Bowel Movements 1 1 Objective General Appearance: WD/WN, moderate distress, obese EENT: PERRL/EOMI, normal ENT inspection Neck: non-tender, normal alignment, supple, normal inspection Cardiovascular: normal peripheral pulses, normal rate, regular rhythm, no gallop/murmur, no JVD Respiratory/Chest: Nasal Canula; chest wall non-tender, respiratory distress, decreased breath sounds - right, crackles/rales, rhonchi - bilaterally, expiratory wheezing Abdomen: normal bowel sounds, non tender, soft, no organomegaly, no mass Extremities: normal range of motion 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 Tolerating nasal canula. See pulmonary note. (2) CAD (coronary artery disease) (3) Diabetes mellitus Assessment & Plan: Cont novolog sliding scale. (4) Cerebral vascular disease (5) Right hemiparesis (6) Cardiomegaly (7) Pleural effusion, right Assessment & Plan: Right. Refused throacentesis. (8) Peripheral vascular disease Assessment & Plan: S/P stent and toe amputation (9) CHF exacerbation Assessment & Plan: Cont IV lasix. See cardiology note. (10) Cardiomyopathy (11) Morbid obesity (12) COPD (chronic obstructive pulmonary disease) (13) HTN (hypertension) Assessment & Plan: Cont lisinopril, spironolactone and bystolic (14) Atrial fibrillation Assessment & Plan: Paroxysmal; currently sinus. On eliquis. See cardiology note. Status: progressing ALLAN MORSE Jun 14, 2016 18:24
[2016-06-14 20:23] VITALS: BP 105/98
[2016-06-15] VITALS: BP 111/60
[2016-06-15 04:00] VITALS: BP 117/56
[2016-06-15 04:40] LABS: BASOPHILS % (AUTO) 1.1 % (0.0-2.0); EOSINOPHILS % (AUTO) 2.5 % (0.0-3.0); LYMPHOCYTES % (AUTO) 17.9 % (20.0-45.0); MEAN CORPUSCULAR HEMOGLOBIN 30.4 PG (27.0-31.0); MEAN CORPUSCULAR HGB CONC 32.3 G/DL (32.0-36.0); MEAN CORPUSCULAR VOLUME 94 FL (80-99); MONOCYTES % (AUTO) 8.3 % (1.0-10.0); NEUTROPHILS % (AUTO) 70.2 % (45.0-75.0); PLATELET COUNT 201 K/UL (150-450); RED BLOOD COUNT 3.62 M/UL (4.70-6.10); RED CELL DISTRIBUTION WIDTH 14.8 % (11.6-14.8); WHITE BLOOD COUNT 7.7 K/UL (4.8-10.8)
[2016-06-15 05:16] LABS: ALANINE AMINOTRANSFERASE 13 U/L (3-41); ANION GAP 11 (5-15); ASPARTATE AMINO TRANSFERASE 24 U/L (5-40); CALCIUM 8.8 mg/dL (8.6-10.2); CARBON DIOXIDE 35 mEQ/L (20-30); CHLORIDE 92 mEQ/L (98-107); CREATININE 1.2 mg/dL (0.7-1.2); GLOMERULAR FILTRATION RATE > 60 mL/min (>60); HEMOLYSIS 3; POTASSIUM 4.2 mEQ/L (3.4-4.9); SODIUM 138 mEQ/L (135-145); TOTAL PROTEIN 5.4 g/dL (6.6-8.7)
[2016-06-15] MEDS: NovoLOG Insulin Flexpen SUBQ SCH ×4 (06:30→20:51)
[2016-06-15 08:00] VITALS: BP 129/71
[2016-06-15] MEDS: Spironolactone 25mg tab ORAL SCH (08:56)
[2016-06-15] MEDS: Eliquis 2.5mg tablet ORAL SCH ×2 (08:56→18:21)
[2016-06-15] MEDS: Tamsulosin 0.4mg cap ORAL SCH (08:57)
[2016-06-15] MEDS: Lisinopril 10mg tab ORAL SCH (08:58)
--- NOTE | 2016-06-15 10:31 | Pulmonology Progress Note ---
Assessment/Plan Problems: (1) Respiratory distress (2) CHF exacerbation (3) COPD (chronic obstructive pulmonary disease) (4) Morbid obesity (5) Cardiomyopathy Assessment/Plan still on lasix drip bun and creatinine stable check electrolytes f/u on cxr daily will need thoracentesis, considering the size of the effusion, refused cxr in am check electrotlyes pt/ot he is going to sit on chair today cxr reviewed ,no improvement Subjective ROS Limited/Unobtainable: No Constitutional: Reports: no symptoms HEENT: Repors: no symptoms Respiratory: Reports: no symptoms Cardiovascular: Reports: no symptoms Gastrointestinal/Abdominal: Reports: no symptoms Allergies: Coded Allergies: LATEX, NATURAL RUBBER (Verified Allergy, Unknown, 06/10/16) Objective Last 24 Hour Vital Signs Date Time Temp Pulse Resp B/P Pulse Ox O2 Delivery O2 Flow Rate FiO2 06/15/16 08:58 129/71 06/15/16 08:00 72 06/15/16 08:00 96.4 72 20 129/71 98 Nasal Cannula 3.0 06/15/16 07:48 75 16 Nasal Cannula 3.0 32 06/15/16 07:47 97 Nasal Cannula 3.0 32 06/15/16 07:47 Nasal Cannula 3.0 32 06/15/16 04:00 97.7 75 20 117/56 97 Nasal Cannula 3.0 06/15/16 03:57 74 06/15/16 00:00 97.5 67 20 111/60 100 Nasal Cannula 3.0 06/14/16 23:53 69 06/14/16 20:23 97.0 69 20 105/98 97 Nasal Cannula 3.0 06/14/16 20:00 68 06/14/16 19:00 98 Nasal Cannula 3.0 32 06/14/16 19:00 76 14 Nasal Cannula 3.0 32 06/14/16 19:00 Nasal Cannula 3.0 32 06/14/16 16:07 97.2 67 17 112/59 100 Nasal Cannula 3.0 06/14/16 16:00 65 06/14/16 12:00 70 06/14/16 12:00 98.1 69 20 126/63 100 Nasal Cannula 4.0 Intake and Output 06/14/16 06/15/16 19:00 07:00 Intake Total 830 ml 440 ml Output Total 2000 ml 3400 ml Balance -1170 ml -2960 ml Intake Oral 770 ml 440 ml IV Total 60 ml Output Urine Total 2000 ml 3400 ml # Bowel Movements 1 General Appearance: WD/WN HEENT: normocephalic, atraumatic Respiratory/Chest: chest wall non-tender, lungs clear Cardiovascular: normal peripheral pulses, normal rate Abdomen: normal bowel sounds, soft, non tender Genitourinary: normal external genitalia Extremities: no clubbing Skin: no lesions Laboratory Tests 06/14/16 12:12: White Blood Count 8.7, Red Blood Count 3.85L, Hemoglobin 11.6L, Hematocrit 36.2L , Mean Corpuscular Volume 94, Mean Corpuscular Hemoglobin 30.0, Mean Corpuscular Hemoglobin Concent 31.9L, Red Cell Distribution Width 14.7, Platelet Count 219, Mean Platelet Volume 6.6, Neutrophils (%) (Auto) 70.7, Lymphocytes (%) (Auto) 16.8L, Monocytes (%) (Auto) 9.4, Eosinophils (%) (Auto) 2.4, Basophils (%) (Auto) 0.7, Sodium Level 140, Potassium Level 4.1, Chloride Level 96L, Carbon Dioxide Level 33H, Anion Gap 11, Blood Urea Nitrogen 31H, Creatinine 1.3H, Estimat Glomerular Filtration Rate 56.1, Glucose Level 177H, Calcium Level 9.1, Total Bilirubin 0.8, Aspartate Amino Transf (AST/SGOT) 23, Alanine Aminotransferase (ALT/SGPT) 13, Alkaline Phosphatase 102, Pro-B-Type Natriuretic Peptide 9225H, Total Protein 5.7L, Albumin 2.9L, Globulin 2.8, Albumin/Globulin Ratio 1.0 06/15/16 03:40: White Blood Count 7.7, Red Blood Count 3.62L, Hemoglobin 11.0L, Hematocrit 34.1L , Mean Corpuscular Volume 94, Mean Corpuscular Hemoglobin 30.4, Mean Corpuscular Hemoglobin Concent 32.3, Red Cell Distribution Width 14.8, Platelet Count 201, Mean Platelet Volume 7.0, Neutrophils (%) (Auto) 70.2, Lymphocytes (% ) (Auto) 17.9L, Monocytes (%) (Auto) 8.3, Eosinophils (%) (Auto) 2.5, Basophils (%) (Auto) 1.1, Sodium Level 138, Potassium Level 4.2, Chloride Level 92L, Carbon Dioxide Level 35H, Anion Gap 11, Blood Urea Nitrogen 29H, Creatinine 1.2 , Estimat Glomerular Filtration Rate > 60, Glucose Level 189H, Calcium Level 8.8 , Total Bilirubin 0.8, Aspartate Amino Transf (AST/SGOT) 24, Alanine Aminotransferase (ALT/SGPT) 13, Alkaline Phosphatase 99, Pro-B-Type Natriuretic Peptide 9392H, Total Protein 5.4L, Albumin 2.7L, Globulin 2.7, Albumin/Globulin Ratio 1.0 Current Medications Medications (Trade) Dose Ordered Sig/Alec Route PRN Reason Start Time Stop Time Status Last Admin Dose Admin Acetaminophen (Tylenol) 650 mg Q4H PRN ORAL Fever 06/10/16 20:45 07/10/16 20:44 06/11/16 21:30 Albuterol/ Ipratropium (DuoNeb 0.5-3(2.5)mg/3ml) 3 ml Q4H PRN HHN Shortness of Breath 06/11/16 11:45 06/16/16 11:44 Apixaban (Eliquis) 5 mg BID ORAL 06/11/16 09:00 07/11/16 08:59 06/15/16 08:56 Dextrose (Dextrose 50%) STAT PRN IV Hypoglycemia 06/10/16 20:45 07/10/16 20:44 Furosemide (Lasix) 60 mg EVERY 8 HOURS IV 06/14/16 22:00 07/14/16 21:59 06/15/16 06:24 Insulin Aspart (NovoLOG) BEFORE MEALS AND HS SUBQ 06/10/16 21:00 07/10/16 20:59 06/15/16 06:30 Lisinopril (Zestril) 10 mg DAILY ORAL 06/12/16 09:00 07/12/16 08:59 06/15/16 08:58 Nebivolol (Bystolic) 10 mg DAILY ORAL 06/11/16 09:00 07/11/16 08:59 06/15/16 08:56 Ondansetron HCl (Zofran) 4 mg Q6H PRN IVP Nausea & Vomiting 06/10/16 20:45 07/10/16 20:44 Polyethylene Glycol (Miralax) 17 gm DAILYPRN PRN ORAL Constipation 06/10/16 20:45 07/10/16 20:44 06/13/16 08:14 Spironolactone (Aldactone) 25 mg DAILY ORAL 06/12/16 09:00 07/12/16 08:59 06/15/16 08:56 Tamsulosin HCl (Flomax) 0.4 mg DAILY ORAL 06/11/16 09:00 07/11/16 08:59 06/15/16 08:57 Temazepam (Restoril) 15 mg HSPRN PRN ORAL Insomnia 06/10/16 20:45 06/17/16 20:44 QUYNH BEAR Jun 15, 2016 10:31
[2016-06-15 12:00] VITALS: BP 139/71
--- NOTE | 2016-06-15 13:35 | Diagnostic Imaging Report ---
Indication: Dyspnea Comparison: 06/14/16 A single view chest radiograph was obtained. Findings: A pleural opacity, again noted in the right side. Moderate to large pleural effusion suspected. The study is limited due to body habitus and motion. Cardiomegaly is grossly stable. Impression: Moderate to large right pleural effusion suspected. No obvious change compared to the prior day
--- NOTE | 2016-06-15 14:43 | Internal Med Progress Note ---
Subjective Physician Name Taiwo Palma Attending Physician Taiwo Palma MD Current Medications Medications (Trade) Dose Ordered Sig/Alec Route PRN Reason Start Time Stop Time Status Last Admin Dose Admin Acetaminophen (Tylenol) 650 mg Q4H PRN ORAL Fever 06/10/16 20:45 07/10/16 20:44 06/11/16 21:30 Albuterol/ Ipratropium (DuoNeb 0.5-3(2.5)mg/3ml) 3 ml Q4H PRN HHN Shortness of Breath 06/11/16 11:45 06/16/16 11:44 Apixaban (Eliquis) 5 mg BID ORAL 06/11/16 09:00 07/11/16 08:59 06/15/16 08:56 Dextrose (Dextrose 50%) STAT PRN IV Hypoglycemia 06/10/16 20:45 07/10/16 20:44 Furosemide (Lasix) 60 mg EVERY 8 HOURS IV 06/14/16 22:00 07/14/16 21:59 06/15/16 13:25 Insulin Aspart (NovoLOG) BEFORE MEALS AND HS SUBQ 06/10/16 21:00 07/10/16 20:59 06/15/16 11:56 Lisinopril (Zestril) 10 mg DAILY ORAL 06/12/16 09:00 07/12/16 08:59 06/15/16 08:58 Nebivolol (Bystolic) 10 mg DAILY ORAL 06/11/16 09:00 07/11/16 08:59 06/15/16 08:56 Ondansetron HCl (Zofran) 4 mg Q6H PRN IVP Nausea & Vomiting 06/10/16 20:45 07/10/16 20:44 Polyethylene Glycol (Miralax) 17 gm DAILYPRN PRN ORAL Constipation 06/10/16 20:45 07/10/16 20:44 06/13/16 08:14 Spironolactone (Aldactone) 25 mg DAILY ORAL 06/12/16 09:00 07/12/16 08:59 06/15/16 08:56 Tamsulosin HCl (Flomax) 0.4 mg DAILY ORAL 06/11/16 09:00 07/11/16 08:59 06/15/16 08:57 Temazepam (Restoril) 15 mg HSPRN PRN ORAL Insomnia 06/10/16 20:45 06/17/16 20:44 Allergies: Coded Allergies: LATEX, NATURAL RUBBER (Verified Allergy, Unknown, 06/10/16) Subjective more responsive, off BiPAP, awake alert, NAD Objective Last Vital Signs Date Time Temp Pulse Resp B/P Pulse Ox O2 Delivery O2 Flow Rate FiO2 06/15/16 12:00 74 06/15/16 12:00 97.5 19 139/71 100 Nasal Cannula 3.0 06/15/16 07:48 32 Laboratory Tests Test 06/15/16 03:40 White Blood Count 7.7 K/UL (4.8-10.8) Red Blood Count 3.62 M/UL (4.70-6.10) L Hemoglobin 11.0 G/DL (14.2-18.0) L Hematocrit 34.1 % (42.0-52.0) L Mean Corpuscular Volume 94 FL (80-99) Mean Corpuscular Hemoglobin 30.4 PG (27.0-31.0) Mean Corpuscular Hemoglobin Concent 32.3 G/DL (32.0-36.0) Red Cell Distribution Width 14.8 % (11.6-14.8) Platelet Count 201 K/UL (150-450) Mean Platelet Volume 7.0 FL (6.5-10.1) Neutrophils (%) (Auto) 70.2 % (45.0-75.0) Lymphocytes (%) (Auto) 17.9 % (20.0-45.0) L Monocytes (%) (Auto) 8.3 % (1.0-10.0) Eosinophils (%) (Auto) 2.5 % (0.0-3.0) Basophils (%) (Auto) 1.1 % (0.0-2.0) Sodium Level 138 mEQ/L (135-145) Potassium Level 4.2 mEQ/L (3.4-4.9) Chloride Level 92 mEQ/L (98-107) L Carbon Dioxide Level 35 mEQ/L (20-30) H Anion Gap 11 (5-15) Blood Urea Nitrogen 29 mg/dL (7-23) H Creatinine 1.2 mg/dL (0.7-1.2) Estimat Glomerular Filtration Rate > 60 mL/min (>60) Glucose Level 189 mg/dL (74-106) H Calcium Level 8.8 mg/dL (8.6-10.2) Total Bilirubin 0.8 mg/dL (0.0-1.2) Aspartate Amino Transf (AST/SGOT) 24 U/L (5-40) Alanine Aminotransferase (ALT/SGPT) 13 U/L (3-41) Alkaline Phosphatase 99 U/L (40-129) Pro-B-Type Natriuretic Peptide 9392 pg/mL (0-125) H Total Protein 5.4 g/dL (6.6-8.7) L Albumin 2.7 g/dL (3.5-5.2) L Globulin 2.7 g/dL Albumin/Globulin Ratio 1.0 (1.0-2.7) Intake and Output 06/14/16 06/15/16 19:00 07:00 Intake Total 830 ml 440 ml Output Total 2000 ml 3400 ml Balance -1170 ml -2960 ml Intake Oral 770 ml 440 ml IV Total 60 ml Output Urine Total 2000 ml 3400 ml # Bowel Movements 1 Objective General Appearance: WD/WN, off BiPAP. EENT: PERRL/EOMI, normal ENT inspection Neck: non-tender, normal alignment, supple, Cardiovascular: normal peripheral pulses, normal rate, regular rhythm, no gallop/murmur, no JVD Respiratory/Chest: chest wall non-tender, respiratory distress, decreased breath sounds - right, crackles, less expiratory wheezing Abdomen: normal bowel sounds, non tender, soft, morbid obesity, Butler cath. Extremities: normal range of motion, + 2 edema. 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 Tolerating nasal canula. (2) CAD (coronary artery disease) (3) Diabetes mellitus Assessment & Plan: Cont novolog sliding scale. (4) Cerebral vascular disease (5) Right hemiparesis (6) Cardiomegaly (7) Pleural effusion, right Assessment & Plan: Right. Refused throacentesis. (8) Peripheral vascular disease Assessment & Plan: S/P stent and toe amputation (9) Acute on chronic CHF exacerbation Assessment & Plan: Cont IV lasix. See cardiology note. (10) Cardiomyopathy (11) Morbid obesity (12) COPD (chronic obstructive pulmonary disease) (13) HTN (hypertension) Assessment & Plan: Cont lisinopril, spironolactone and Bystolic (14) Atrial fibrillation Assessment & Plan: Paroxysmal; currently sinus. On eliquis. See cardiology note. Status: progressing Monitor labs and Cultures Off abx CXR today: Moderate to large right pleural effusion suspected. No obvious change compared to the prior day Taiwo Palma MD Jun 15, 2016 14:43
[2016-06-15 16:00] VITALS: BP 127/68
--- NOTE | 2016-06-15 18:21 | Cardiac Electrophysiology PN ---
Assessment/Plan Assessment/Plan 1. Congestive heart failure. Ruled out for myocardial infarction. EF 35%. His creatinine is within normal range. On Lasix 60 iv tid, Bystolic, lisinopril and Aldactone. 2. Paroxysmal atrial fibrillation. On Eliquis 5 mg b.i.d. and Bystolic 3. HTN on Lasix, Bystolic, lisinopril and Aldactone 4. Chronic obstructive pulmonary disease. 5. Diabetes, on metformin. 6. Morbid obesity. 7. 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 Feeling better with BIPAP on. Objective Last 24 Hour Vital Signs Date Time Temp Pulse Resp B/P Pulse Ox O2 Delivery O2 Flow Rate FiO2 06/15/16 18:01 74 20 98 Facial 30 06/15/16 16:00 71 06/15/16 16:00 97.5 74 14 127/68 99 Nasal Cannula 3.0 06/15/16 12:00 74 06/15/16 12:00 97.5 72 19 139/71 100 Nasal Cannula 3.0 06/15/16 08:58 129/71 06/15/16 08:00 72 06/15/16 08:00 96.4 72 20 129/71 98 Nasal Cannula 3.0 06/15/16 07:48 75 16 Nasal Cannula 3.0 32 06/15/16 07:47 97 Nasal Cannula 3.0 32 06/15/16 07:47 Nasal Cannula 3.0 32 06/15/16 04:00 97.7 75 20 117/56 97 Nasal Cannula 3.0 06/15/16 03:57 74 06/15/16 00:00 97.5 67 20 111/60 100 Nasal Cannula 3.0 06/14/16 23:53 69 06/14/16 20:23 97.0 69 20 105/98 97 Nasal Cannula 3.0 06/14/16 20:00 68 06/14/16 19:00 98 Nasal Cannula 3.0 32 06/14/16 19:00 76 14 Nasal Cannula 3.0 32 06/14/16 19:00 Nasal Cannula 3.0 32 Intake and Output 06/14/16 06/15/16 19:00 07:00 Intake Total 830 ml 440 ml Output Total 2000 ml 3400 ml Balance -1170 ml -2960 ml Intake Oral 770 ml 440 ml IV Total 60 ml Output Urine Total 2000 ml 3400 ml # Bowel Movements 1 Laboratory Tests Test 06/15/16 03:40 White Blood Count 7.7 K/UL (4.8-10.8) Red Blood Count 3.62 M/UL (4.70-6.10) L Hemoglobin 11.0 G/DL (14.2-18.0) L Hematocrit 34.1 % (42.0-52.0) L Mean Corpuscular Volume 94 FL (80-99) Mean Corpuscular Hemoglobin 30.4 PG (27.0-31.0) Mean Corpuscular Hemoglobin Concent 32.3 G/DL (32.0-36.0) Red Cell Distribution Width 14.8 % (11.6-14.8) Platelet Count 201 K/UL (150-450) Mean Platelet Volume 7.0 FL (6.5-10.1) Neutrophils (%) (Auto) 70.2 % (45.0-75.0) Lymphocytes (%) (Auto) 17.9 % (20.0-45.0) L Monocytes (%) (Auto) 8.3 % (1.0-10.0) Eosinophils (%) (Auto) 2.5 % (0.0-3.0) Basophils (%) (Auto) 1.1 % (0.0-2.0) Sodium Level 138 mEQ/L (135-145) Potassium Level 4.2 mEQ/L (3.4-4.9) Chloride Level 92 mEQ/L (98-107) L Carbon Dioxide Level 35 mEQ/L (20-30) H Anion Gap 11 (5-15) Blood Urea Nitrogen 29 mg/dL (7-23) H Creatinine 1.2 mg/dL (0.7-1.2) Estimat Glomerular Filtration Rate > 60 mL/min (>60) Glucose Level 189 mg/dL (74-106) H Calcium Level 8.8 mg/dL (8.6-10.2) Total Bilirubin 0.8 mg/dL (0.0-1.2) Aspartate Amino Transf (AST/SGOT) 24 U/L (5-40) Alanine Aminotransferase (ALT/SGPT) 13 U/L (3-41) Alkaline Phosphatase 99 U/L (40-129) Pro-B-Type Natriuretic Peptide 9392 pg/mL (0-125) H Total Protein 5.4 g/dL (6.6-8.7) L Albumin 2.7 g/dL (3.5-5.2) L Globulin 2.7 g/dL Albumin/Globulin Ratio 1.0 (1.0-2.7) Objective HEENT: mild jugular venous distention. LUNGS: Decreased breath sounds. CARDIOVASCULAR: Showed distant heart sounds with no gallop or rub. ABDOMEN: Morbidly obese. EXTREMITIES: 3+ pitting edema. MICHELLE ROWE Jun 15, 2016 18:21
[2016-06-15 20:00] VITALS: BP 117/59
[2016-06-16] VITALS: BP 131/72
[2016-06-16 04:00] VITALS: BP 140/75
[2016-06-16 05:35] LABS: BASOPHILS % (AUTO) 0.6 % (0.0-2.0); EOSINOPHILS % (AUTO) 2.5 % (0.0-3.0); LYMPHOCYTES % (AUTO) 18.8 % (20.0-45.0); MEAN CORPUSCULAR HEMOGLOBIN 30.8 PG (27.0-31.0); MEAN CORPUSCULAR HGB CONC 32.9 G/DL (32.0-36.0); MEAN CORPUSCULAR VOLUME 94 FL (80-99); MEAN PLATELET VOLUME 7.2 FL (6.5-10.1); NEUTROPHILS % (AUTO) 68.1 % (45.0-75.0); PLATELET COUNT 198 K/UL (150-450); RED BLOOD COUNT 3.67 M/UL (4.70-6.10); RED CELL DISTRIBUTION WIDTH 14.5 % (11.6-14.8); WHITE BLOOD COUNT 8.2 K/UL (4.8-10.8)
[2016-06-16 05:57] LABS: ALANINE AMINOTRANSFERASE 13 U/L (3-41); ANION GAP 7 (5-15); ASPARTATE AMINO TRANSFERASE 23 U/L (5-40); CALCIUM 9.2 mg/dL (8.6-10.2); CARBON DIOXIDE 39 mEQ/L (20-30); CHLORIDE 95 mEQ/L (98-107); CREATININE 1.2 mg/dL (0.7-1.2); GLOMERULAR FILTRATION RATE > 60 mL/min (>60); HEMOLYSIS 2; POTASSIUM 4.2 mEQ/L (3.4-4.9); SODIUM 141 mEQ/L (135-145); TOTAL PROTEIN 5.8 g/dL (6.6-8.7)
[2016-06-16] MEDS: NovoLOG Insulin Flexpen SUBQ SCH ×4 (06:46→21:00)
[2016-06-16 08:00] VITALS: BP 127/68
[2016-06-16] MEDS: Eliquis 2.5mg tablet ORAL SCH ×2 (08:40→17:34)
[2016-06-16] MEDS: Spironolactone 25mg tab ORAL SCH (08:40)
[2016-06-16] MEDS: Lisinopril 10mg tab ORAL SCH (08:41)
[2016-06-16] MEDS: Tamsulosin 0.4mg cap ORAL SCH (08:41)
--- NOTE | 2016-06-16 11:10 | Pulmonology Progress Note ---
Assessment/Plan Problems: (1) Respiratory distress (2) CHF exacerbation (3) COPD (chronic obstructive pulmonary disease) (4) Morbid obesity (5) Cardiomyopathy Assessment/Plan still on lasix drip bun and creatinine stable check electrolytes, daily f/u on cxr daily, will need thoracentesis, considering the size of the effusion, refused cxr in am check electrotlyes pt/ot cxr reviewed ,no improvement ( 06/16) Subjective ROS Limited/Unobtainable: No Constitutional: Reports: no symptoms HEENT: Repors: no symptoms Respiratory: Reports: no symptoms Cardiovascular: Reports: no symptoms Allergies: Coded Allergies: LATEX, NATURAL RUBBER (Verified Allergy, Unknown, 06/10/16) Objective Last 24 Hour Vital Signs Date Time Temp Pulse Resp B/P Pulse Ox O2 Delivery O2 Flow Rate FiO2 06/16/16 08:41 127/68 06/16/16 08:00 69 06/16/16 08:00 96.3 72 18 127/68 97 Bi-pap 30 06/16/16 07:23 Nasal Cannula 3.0 06/16/16 07:23 96 Nasal Cannula 3.0 06/16/16 07:22 69 18 Nasal Cannula 3.0 06/16/16 04:28 65 19 97 Facial 30 06/16/16 04:00 98.0 69 28 140/75 98 Bi-pap 30 06/16/16 03:40 68 06/16/16 02:06 68 21 97 Facial 30 06/16/16 00:10 72 19 97 Facial 30 06/16/16 00:00 97.4 68 19 131/72 100 Bi-pap 30 06/15/16 23:37 69 06/15/16 22:06 98 23 98 Facial 30 06/15/16 20:27 66 19 97 Facial 30 06/15/16 20:27 Bi-pap 30 06/15/16 20:26 97 Bi-pap 30 06/15/16 20:25 66 17 Bi-pap 30 06/15/16 20:00 97.3 69 18 117/59 97 Bi-pap 30 06/15/16 20:00 68 06/15/16 18:01 74 20 98 Facial 30 06/15/16 16:00 71 06/15/16 16:00 97.5 74 14 127/68 99 Nasal Cannula 3.0 06/15/16 12:00 74 06/15/16 12:00 97.5 72 19 139/71 100 Nasal Cannula 3.0 Intake and Output 06/15/16 06/16/16 19:00 07:00 Intake Total 160 ml Output Total 2500 ml 2825 ml Balance -2340 ml -2825 ml Intake Oral 160 ml Output Urine Total 2500 ml 2825 ml # Bowel Movements 1 Objective feeling better, did PT, sat on the bed yesterday General Appearance: WD/WN HEENT: normocephalic, atraumatic Respiratory/Chest: chest wall non-tender, lungs clear Cardiovascular: regularly irregular Abdomen: normal bowel sounds, soft, non tender Extremities: no cyanosis Skin: no rash 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 Laboratory Tests 06/16/16 03:30: White Blood Count 8.2, Red Blood Count 3.67L, Hemoglobin 11.3L, Hematocrit 34.3L , Mean Corpuscular Volume 94, Mean Corpuscular Hemoglobin 30.8, Mean Corpuscular Hemoglobin Concent 32.9, Red Cell Distribution Width 14.5, Platelet Count 198, Mean Platelet Volume 7.2, Neutrophils (%) (Auto) 68.1, Lymphocytes (% ) (Auto) 18.8L, Monocytes (%) (Auto) 10.0, Eosinophils (%) (Auto) 2.5, Basophils (%) (Auto) 0.6, Sodium Level 141, Potassium Level 4.2, Chloride Level 95L, Carbon Dioxide Level 39H, Anion Gap 7, Blood Urea Nitrogen 30H, Creatinine 1.2, Estimat Glomerular Filtration Rate > 60, Glucose Level 139H, Calcium Level 9.2, Total Bilirubin 0.7, Aspartate Amino Transf (AST/SGOT) 23, Alanine Aminotransferase (ALT/SGPT) 13, Alkaline Phosphatase 106, Total Protein 5.8L, Albumin 2.9L, Globulin 2.9, Albumin/Globulin Ratio 1.0 Current Medications Medications (Trade) Dose Ordered Sig/Alec Route PRN Reason Start Time Stop Time Status Last Admin Dose Admin Acetaminophen (Tylenol) 650 mg Q4H PRN ORAL Fever 06/10/16 20:45 07/10/16 20:44 06/11/16 21:30 Albuterol/ Ipratropium (DuoNeb 0.5-3(2.5)mg/3ml) 3 ml Q4H PRN HHN Shortness of Breath 06/11/16 11:45 06/16/16 11:44 Apixaban (Eliquis) 5 mg BID ORAL 06/11/16 09:00 07/11/16 08:59 06/16/16 08:40 Dextrose (Dextrose 50%) STAT PRN IV Hypoglycemia 06/10/16 20:45 07/10/16 20:44 Furosemide (Lasix) 60 mg EVERY 8 HOURS IV 06/14/16 22:00 07/14/16 21:59 06/16/16 06:33 Insulin Aspart (NovoLOG) BEFORE MEALS AND HS SUBQ 06/10/16 21:00 07/10/16 20:59 06/16/16 06:46 Lisinopril (Zestril) 10 mg DAILY ORAL 06/12/16 09:00 07/12/16 08:59 06/16/16 08:41 Nebivolol (Bystolic) 10 mg DAILY ORAL 06/11/16 09:00 07/11/16 08:59 06/16/16 08:40 Ondansetron HCl (Zofran) 4 mg Q6H PRN IVP Nausea & Vomiting 06/10/16 20:45 07/10/16 20:44 Polyethylene Glycol (Miralax) 17 gm DAILYPRN PRN ORAL Constipation 06/10/16 20:45 07/10/16 20:44 06/13/16 08:14 Spironolactone (Aldactone) 25 mg DAILY ORAL 06/12/16 09:00 07/12/16 08:59 06/16/16 08:40 Tamsulosin HCl (Flomax) 0.4 mg DAILY ORAL 06/11/16 09:00 07/11/16 08:59 06/16/16 08:41 Temazepam (Restoril) 15 mg HSPRN PRN ORAL Insomnia 06/10/16 20:45 06/17/16 20:44 QUYNH BEAR Jun 16, 2016 11:10
--- NOTE | 2016-06-16 11:56 | Diagnostic Imaging Report ---
Indication: Dyspnea Comparison: 06/15/2016 A single view chest radiograph was obtained. Findings: There is a right pleural effusion. Mild congestion present. Heart size is grossly stable. Impression: No significant change
[2016-06-16 12:00] VITALS: BP 125/69
--- NOTE | 2016-06-16 13:35 | Internal Med Progress Note ---
Subjective Date of Service: Jun 16, 2016 Physician Name Allan Morse Attending Physician Taiwo Palma MD Current Medications Medications (Trade) Dose Ordered Sig/Alec Route PRN Reason Start Time Stop Time Status Last Admin Dose Admin Acetaminophen (Tylenol) 650 mg Q4H PRN ORAL Fever 06/10/16 20:45 07/10/16 20:44 06/11/16 21:30 Apixaban (Eliquis) 5 mg BID ORAL 06/11/16 09:00 07/11/16 08:59 06/16/16 08:40 Dextrose (Dextrose 50%) STAT PRN IV Hypoglycemia 06/10/16 20:45 07/10/16 20:44 Furosemide (Lasix) 60 mg EVERY 8 HOURS IV 06/14/16 22:00 07/14/16 21:59 06/16/16 06:33 Insulin Aspart (NovoLOG) BEFORE MEALS AND HS SUBQ 06/10/16 21:00 07/10/16 20:59 06/16/16 12:00 Lisinopril (Zestril) 10 mg DAILY ORAL 06/12/16 09:00 07/12/16 08:59 06/16/16 08:41 Nebivolol (Bystolic) 10 mg DAILY ORAL 06/11/16 09:00 07/11/16 08:59 06/16/16 08:40 Ondansetron HCl (Zofran) 4 mg Q6H PRN IVP Nausea & Vomiting 06/10/16 20:45 07/10/16 20:44 Polyethylene Glycol (Miralax) 17 gm DAILYPRN PRN ORAL Constipation 06/10/16 20:45 07/10/16 20:44 06/13/16 08:14 Spironolactone (Aldactone) 25 mg DAILY ORAL 06/12/16 09:00 07/12/16 08:59 06/16/16 08:40 Tamsulosin HCl (Flomax) 0.4 mg DAILY ORAL 06/11/16 09:00 07/11/16 08:59 06/16/16 08:41 Temazepam (Restoril) 15 mg HSPRN PRN ORAL Insomnia 06/10/16 20:45 06/17/16 20:44 Allergies: Coded Allergies: LATEX, NATURAL RUBBER (Verified Allergy, Unknown, 06/10/16) ROS Limited/Unobtainable: No Constitutional: Reports: no symptoms HEENT: Reports: no symptoms Cardiovascular: Reports: no symptoms Respiratory: Reports: shortness of breath Gastrointestinal/Abdominal: Reports: no symptoms Genitourinary: Reports: no symptoms Neurologic/Psychiatric: Reports: no symptoms Subjective 60 YO M admitted with shortness of breath, now congestive heart failure. Cover for Int Michel-Dr Palma. DARIAN. Tolerating nasal canula. Refused thoracentesis Objective Last Vital Signs Date Time Temp Pulse Resp B/P Pulse Ox O2 Delivery O2 Flow Rate FiO2 06/16/16 12:00 71 06/16/16 12:00 97.2 19 125/69 100 Nasal Cannula 3.0 06/16/16 08:00 30 Laboratory Tests Test 06/16/16 03:30 White Blood Count 8.2 K/UL (4.8-10.8) Red Blood Count 3.67 M/UL (4.70-6.10) L Hemoglobin 11.3 G/DL (14.2-18.0) L Hematocrit 34.3 % (42.0-52.0) L Mean Corpuscular Volume 94 FL (80-99) Mean Corpuscular Hemoglobin 30.8 PG (27.0-31.0) Mean Corpuscular Hemoglobin Concent 32.9 G/DL (32.0-36.0) Red Cell Distribution Width 14.5 % (11.6-14.8) Platelet Count 198 K/UL (150-450) Mean Platelet Volume 7.2 FL (6.5-10.1) Neutrophils (%) (Auto) 68.1 % (45.0-75.0) Lymphocytes (%) (Auto) 18.8 % (20.0-45.0) L Monocytes (%) (Auto) 10.0 % (1.0-10.0) Eosinophils (%) (Auto) 2.5 % (0.0-3.0) Basophils (%) (Auto) 0.6 % (0.0-2.0) Sodium Level 141 mEQ/L (135-145) Potassium Level 4.2 mEQ/L (3.4-4.9) Chloride Level 95 mEQ/L (98-107) L Carbon Dioxide Level 39 mEQ/L (20-30) H Anion Gap 7 (5-15) Blood Urea Nitrogen 30 mg/dL (7-23) H Creatinine 1.2 mg/dL (0.7-1.2) Estimat Glomerular Filtration Rate > 60 mL/min (>60) Glucose Level 139 mg/dL (74-106) H Calcium Level 9.2 mg/dL (8.6-10.2) Total Bilirubin 0.7 mg/dL (0.0-1.2) Aspartate Amino Transf (AST/SGOT) 23 U/L (5-40) Alanine Aminotransferase (ALT/SGPT) 13 U/L (3-41) Alkaline Phosphatase 106 U/L (40-129) Total Protein 5.8 g/dL (6.6-8.7) L Albumin 2.9 g/dL (3.5-5.2) L Globulin 2.9 g/dL Albumin/Globulin Ratio 1.0 (1.0-2.7) Intake and Output 06/15/16 06/16/16 19:00 07:00 Intake Total 160 ml Output Total 2500 ml 2825 ml Balance -2340 ml -2825 ml Intake Oral 160 ml Output Urine Total 2500 ml 2825 ml # Bowel Movements 1 Objective General Appearance: WD/WN, moderate distress, obese EENT: PERRL/EOMI, normal ENT inspection Neck: non-tender, normal alignment, supple, normal inspection Cardiovascular: normal peripheral pulses, normal rate, regular rhythm, no gallop/murmur, no JVD Respiratory/Chest: Nasal Canula; chest wall non-tender, respiratory distress, decreased breath sounds - right, crackles/rales, rhonchi - bilaterally, expiratory wheezing Abdomen: normal bowel sounds, non tender, soft, no organomegaly, no mass Extremities: normal range of motion 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 Tolerating nasal canula. See pulmonary note. (2) CAD (coronary artery disease) (3) Diabetes mellitus Assessment & Plan: Cont novolog sliding scale. (4) Cerebral vascular disease (5) Right hemiparesis (6) Cardiomegaly (7) Pleural effusion, right Assessment & Plan: Right. Refused throacentesis. (8) Peripheral vascular disease Assessment & Plan: S/P stent and toe amputation (9) CHF exacerbation Assessment & Plan: Cont IV lasix. See cardiology note. (10) Cardiomyopathy (11) Morbid obesity (12) COPD (chronic obstructive pulmonary disease) (13) HTN (hypertension) Assessment & Plan: Cont lisinopril, spironolactone and bystolic (14) Atrial fibrillation Assessment & Plan: Paroxysmal; currently sinus. On eliquis. See cardiology note. Status: not improved ALLAN MOSRE Jun 16, 2016 13:34
[2016-06-16 16:50] VITALS: BP 121/72
[2016-06-16 20:00] VITALS: BP 121/63
--- NOTE | 2016-06-16 21:50 | Cardiac Electrophysiology PN ---
Assessment/Plan Assessment/Plan 1. Congestive heart failure exacerbation with EF 35%. His creatinine is within normal range. Continue Lasix 60 iv tid, Bystolic 10, lisinopril and Aldactone. 2. Paroxysmal atrial fibrillation. On Eliquis 5 mg b.i.d. and Bystolic 3. HTN on Lasix, Bystolic, lisinopril and Aldactone 4. Chronic obstructive pulmonary disease. 5. Diabetes, on metformin. 6. Morbid obesity. 7. S/P embolic CVA with expressive aphasia DW RN Subjective Subjective Remained in SR.Feeling better on iv Lasix. BIPAP on. Objective Last 24 Hour Vital Signs Date Time Temp Pulse Resp B/P Pulse Ox O2 Delivery O2 Flow Rate FiO2 06/16/16 21:19 66 18 96 Facial 30 06/16/16 20:14 65 18 96 Facial 30 06/16/16 19:56 Nasal Cannula 3.0 32 06/16/16 19:55 96 Nasal Cannula 3.0 32 06/16/16 19:55 72 16 Nasal Cannula 3.0 32 06/16/16 16:50 97.9 69 24 121/72 98 Nasal Cannula 3.0 06/16/16 15:31 67 06/16/16 12:00 71 06/16/16 12:00 97.2 73 19 125/69 100 Nasal Cannula 3.0 06/16/16 08:41 127/68 06/16/16 08:00 69 06/16/16 08:00 96.3 72 18 127/68 97 Bi-pap 30 06/16/16 07:23 Nasal Cannula 3.0 06/16/16 07:23 96 Nasal Cannula 3.0 06/16/16 07:22 69 18 Nasal Cannula 3.0 06/16/16 04:28 65 19 97 Facial 30 06/16/16 04:00 98.0 69 28 140/75 98 Bi-pap 30 06/16/16 03:40 68 06/16/16 02:06 68 21 97 Facial 30 06/16/16 00:10 72 19 97 Facial 30 06/16/16 00:00 97.4 68 19 131/72 100 Bi-pap 30 06/15/16 23:37 69 06/15/16 22:06 98 23 98 Facial 30 Intake and Output 06/15/16 06/16/16 19:00 07:00 Intake Total 160 ml Output Total 2500 ml 2825 ml Balance -2340 ml -2825 ml Intake Oral 160 ml Output Urine Total 2500 ml 2825 ml # Bowel Movements 1 Laboratory Tests Test 06/16/16 03:30 White Blood Count 8.2 K/UL (4.8-10.8) Red Blood Count 3.67 M/UL (4.70-6.10) L Hemoglobin 11.3 G/DL (14.2-18.0) L Hematocrit 34.3 % (42.0-52.0) L Mean Corpuscular Volume 94 FL (80-99) Mean Corpuscular Hemoglobin 30.8 PG (27.0-31.0) Mean Corpuscular Hemoglobin Concent 32.9 G/DL (32.0-36.0) Red Cell Distribution Width 14.5 % (11.6-14.8) Platelet Count 198 K/UL (150-450) Mean Platelet Volume 7.2 FL (6.5-10.1) Neutrophils (%) (Auto) 68.1 % (45.0-75.0) Lymphocytes (%) (Auto) 18.8 % (20.0-45.0) L Monocytes (%) (Auto) 10.0 % (1.0-10.0) Eosinophils (%) (Auto) 2.5 % (0.0-3.0) Basophils (%) (Auto) 0.6 % (0.0-2.0) Sodium Level 141 mEQ/L (135-145) Potassium Level 4.2 mEQ/L (3.4-4.9) Chloride Level 95 mEQ/L (98-107) L Carbon Dioxide Level 39 mEQ/L (20-30) H Anion Gap 7 (5-15) Blood Urea Nitrogen 30 mg/dL (7-23) H Creatinine 1.2 mg/dL (0.7-1.2) Estimat Glomerular Filtration Rate > 60 mL/min (>60) Glucose Level 139 mg/dL (74-106) H Calcium Level 9.2 mg/dL (8.6-10.2) Total Bilirubin 0.7 mg/dL (0.0-1.2) Aspartate Amino Transf (AST/SGOT) 23 U/L (5-40) Alanine Aminotransferase (ALT/SGPT) 13 U/L (3-41) Alkaline Phosphatase 106 U/L (40-129) Total Protein 5.8 g/dL (6.6-8.7) L Albumin 2.9 g/dL (3.5-5.2) L Globulin 2.9 g/dL Albumin/Globulin Ratio 1.0 (1.0-2.7) Objective HEENT: mild jugular venous distention. LUNGS: Decreased breath sounds. CARDIOVASCULAR: Showed distant heart sounds with no gallop or rub. ABDOMEN: Morbidly obese. EXTREMITIES: 3+ pitting edema. MICHELLE ROWE Jun 16, 2016 21:49
[2016-06-17] VITALS: BP 128/63
[2016-06-17 04:00] VITALS: BP 124/69
[2016-06-17 06:12] LABS: BASOPHILS % (AUTO) 0.9 % (0.0-2.0); EOSINOPHILS % (AUTO) 2.4 % (0.0-3.0); LYMPHOCYTES % (AUTO) 19.5 % (20.0-45.0); MEAN CORPUSCULAR HEMOGLOBIN 30.8 PG (27.0-31.0); MEAN CORPUSCULAR HGB CONC 33.1 G/DL (32.0-36.0); MEAN CORPUSCULAR VOLUME 93 FL (80-99); MEAN PLATELET VOLUME 7.2 FL (6.5-10.1); MONOCYTES % (AUTO) 10.8 % (1.0-10.0); NEUTROPHILS % (AUTO) 66.5 % (45.0-75.0); PLATELET COUNT 193 K/UL (150-450); RED BLOOD COUNT 3.71 M/UL (4.70-6.10); RED CELL DISTRIBUTION WIDTH 14.3 % (11.6-14.8); WHITE BLOOD COUNT 8.3 K/UL (4.8-10.8)
[2016-06-17] MEDS: NovoLOG Insulin Flexpen SUBQ SCH ×4 (06:13→22:10)
[2016-06-17 06:33] LABS: ALBUMIN/GLOBULIN RATIO 1.1 (1.0-2.7); CREATININE 1.3 mg/dL (0.7-1.2); GLOMERULAR FILTRATION RATE 56.1 mL/min (>60); POTASSIUM 4.3 mEQ/L (3.4-4.9); TOTAL PROTEIN 5.7 g/dL (6.6-8.7)
[2016-06-17 08:00] VITALS: BP 112/59
[2016-06-17] MEDS: Spironolactone 25mg tab ORAL SCH (09:00)
[2016-06-17] MEDS: Eliquis 2.5mg tablet ORAL SCH ×2 (09:00→18:13)
[2016-06-17] MEDS: Lisinopril 10mg tab ORAL SCH (09:00)
[2016-06-17] MEDS: Tamsulosin 0.4mg cap ORAL SCH (09:01)
--- NOTE | 2016-06-17 11:25 | Pulmonology Progress Note ---
Assessment/Plan Problems: (1) Respiratory distress (2) CHF exacerbation (3) COPD (chronic obstructive pulmonary disease) (4) Morbid obesity (5) Cardiomyopathy Assessment/Plan still on lasix drip bun and creatinine stable check electrolytes, daily f/u on cxr daily, cxr daily check electrotlyes pt/ot Subjective ROS Limited/Unobtainable: No Constitutional: Reports: no symptoms Respiratory: Reports: no symptoms Cardiovascular: Reports: no symptoms Gastrointestinal/Abdominal: Reports: no symptoms Allergies: Coded Allergies: LATEX, NATURAL RUBBER (Verified Allergy, Unknown, 06/10/16) Objective Last 24 Hour Vital Signs Date Time Temp Pulse Resp B/P Pulse Ox O2 Delivery O2 Flow Rate FiO2 06/17/16 09:00 112/59 06/17/16 09:00 67 06/17/16 08:00 97.3 68 20 112/59 100 Nasal Cannula 2.0 06/17/16 07:58 96 Nasal Cannula 3.0 32 06/17/16 07:58 Nasal Cannula 3.0 32 06/17/16 07:00 74 16 Nasal Cannula 3.0 32 06/17/16 04:15 69 06/17/16 04:00 98.1 70 18 124/69 98 Nasal Cannula 3.0 06/17/16 00:00 97.0 70 18 128/63 98 Nasal Cannula 3.0 06/16/16 23:44 65 06/16/16 21:19 66 18 96 Facial 30 06/16/16 20:38 70 06/16/16 20:14 65 18 96 Facial 30 06/16/16 20:00 97.4 69 18 121/63 98 Nasal Cannula 3.0 06/16/16 19:56 Nasal Cannula 3.0 32 06/16/16 19:55 96 Nasal Cannula 3.0 32 06/16/16 19:55 72 16 Nasal Cannula 3.0 32 06/16/16 16:50 97.9 69 24 121/72 98 Nasal Cannula 3.0 06/16/16 15:31 67 06/16/16 12:00 71 06/16/16 12:00 97.2 73 19 125/69 100 Nasal Cannula 3.0 Intake and Output 06/16/16 06/17/16 19:00 07:00 Intake Total 480 ml 250 ml Output Total 1800 ml 2400 ml Balance -1320 ml -2150 ml Intake Oral 480 ml 250 ml Output Urine Total 1800 ml 2400 ml # Bowel Movements 1 2 Objective feeling better, did PT, sat on the bed yesterday General Appearance: WD/WN HEENT: normocephalic, atraumatic Respiratory/Chest: chest wall non-tender, lungs clear Cardiovascular: normal peripheral pulses, normal rate Abdomen: normal bowel sounds, soft, non tender Extremities: no cyanosis Skin: no rash 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 Lymphatic: no neck adenopathy Laboratory Tests 06/17/16 05:35: White Blood Count 8.3, Red Blood Count 3.71L, Hemoglobin 11.4L, Hematocrit 34.6L , Mean Corpuscular Volume 93, Mean Corpuscular Hemoglobin 30.8, Mean Corpuscular Hemoglobin Concent 33.1, Red Cell Distribution Width 14.3, Platelet Count 193, Mean Platelet Volume 7.2, Neutrophils (%) (Auto) 66.5, Lymphocytes (% ) (Auto) 19.5L, Monocytes (%) (Auto) 10.8H, Eosinophils (%) (Auto) 2.4, Basophils (%) (Auto) 0.9, Sodium Level 137, Potassium Level 4.3, Chloride Level 92L, Carbon Dioxide Level 40H, Anion Gap 5, Blood Urea Nitrogen 30H, Creatinine 1.3H, Estimat Glomerular Filtration Rate 56.1, Glucose Level 151H, Calcium Level 9.0, Total Bilirubin 0.8, Aspartate Amino Transf (AST/SGOT) 22, Alanine Aminotransferase (ALT/SGPT) 13, Alkaline Phosphatase 108, Total Protein 5.7L, Albumin 3.1L, Globulin 2.6, Albumin/Globulin Ratio 1.1 Current Medications Medications (Trade) Dose Ordered Sig/Alec Route PRN Reason Start Time Stop Time Status Last Admin Dose Admin Acetaminophen (Tylenol) 650 mg Q4H PRN ORAL Fever 06/10/16 20:45 07/10/16 20:44 06/11/16 21:30 Apixaban (Eliquis) 5 mg BID ORAL 06/11/16 09:00 07/11/16 08:59 06/17/16 09:00 Dextrose (Dextrose 50%) STAT PRN IV Hypoglycemia 06/10/16 20:45 07/10/16 20:44 Furosemide (Lasix) 60 mg EVERY 8 HOURS IV 06/14/16 22:00 07/14/16 21:59 06/17/16 06:11 Insulin Aspart (NovoLOG) BEFORE MEALS AND HS SUBQ 06/10/16 21:00 07/10/16 20:59 06/17/16 06:13 Lisinopril (Zestril) 10 mg DAILY ORAL 06/12/16 09:00 07/12/16 08:59 06/17/16 09:00 Nebivolol (Bystolic) 10 mg DAILY ORAL 06/11/16 09:00 07/11/16 08:59 06/17/16 08:59 Ondansetron HCl (Zofran) 4 mg Q6H PRN IVP Nausea & Vomiting 06/10/16 20:45 07/10/16 20:44 Polyethylene Glycol (Miralax) 17 gm DAILYPRN PRN ORAL Constipation 06/10/16 20:45 07/10/16 20:44 06/13/16 08:14 Spironolactone (Aldactone) 25 mg DAILY ORAL 06/12/16 09:00 07/12/16 08:59 06/17/16 09:00 Tamsulosin HCl (Flomax) 0.4 mg DAILY ORAL 06/11/16 09:00 07/11/16 08:59 06/17/16 09:01 Temazepam (Restoril) 15 mg HSPRN PRN ORAL Insomnia 06/10/16 20:45 06/17/16 20:44 QUYNH BEAR Jun 17, 2016 11:25
[2016-06-17 12:00] VITALS: BP 119/63
--- NOTE | 2016-06-17 14:16 | Internal Med Progress Note ---
Subjective Date of Service: Jun 17, 2016 Physician Name Allan Morse Attending Physician Taiwo Palma MD Current Medications Medications (Trade) Dose Ordered Sig/Alec Route PRN Reason Start Time Stop Time Status Last Admin Dose Admin Acetaminophen (Tylenol) 650 mg Q4H PRN ORAL Fever 06/10/16 20:45 07/10/16 20:44 06/11/16 21:30 Apixaban (Eliquis) 5 mg BID ORAL 06/11/16 09:00 07/11/16 08:59 06/17/16 09:00 Dextrose (Dextrose 50%) STAT PRN IV Hypoglycemia 06/10/16 20:45 07/10/16 20:44 Furosemide (Lasix) 60 mg EVERY 8 HOURS IV 06/14/16 22:00 07/14/16 21:59 06/17/16 13:15 Insulin Aspart (NovoLOG) BEFORE MEALS AND HS SUBQ 06/10/16 21:00 07/10/16 20:59 06/17/16 11:50 Lisinopril (Zestril) 10 mg DAILY ORAL 06/12/16 09:00 07/12/16 08:59 06/17/16 09:00 Nebivolol (Bystolic) 10 mg DAILY ORAL 06/11/16 09:00 07/11/16 08:59 06/17/16 08:59 Ondansetron HCl (Zofran) 4 mg Q6H PRN IVP Nausea & Vomiting 06/10/16 20:45 07/10/16 20:44 Polyethylene Glycol (Miralax) 17 gm DAILYPRN PRN ORAL Constipation 06/10/16 20:45 07/10/16 20:44 06/13/16 08:14 Spironolactone (Aldactone) 25 mg DAILY ORAL 06/12/16 09:00 07/12/16 08:59 06/17/16 09:00 Tamsulosin HCl (Flomax) 0.4 mg DAILY ORAL 06/11/16 09:00 07/11/16 08:59 06/17/16 09:01 Temazepam (Restoril) 15 mg HSPRN PRN ORAL Insomnia 06/10/16 20:45 06/17/16 20:44 Allergies: Coded Allergies: LATEX, NATURAL RUBBER (Verified Allergy, Unknown, 06/10/16) ROS Limited/Unobtainable: No Constitutional: Reports: no symptoms HEENT: Reports: no symptoms Cardiovascular: Reports: no symptoms Respiratory: Reports: shortness of breath Gastrointestinal/Abdominal: Reports: no symptoms Genitourinary: Reports: no symptoms Neurologic/Psychiatric: Reports: no symptoms Subjective 60 YO M admitted with shortness of breath, now congestive heart failure. Cover for Int Michel-Dr Palma. DARIAN. Tolerating nasal canula. Refused thoracentesis Objective Last Vital Signs Date Time Temp Pulse Resp B/P Pulse Ox O2 Delivery O2 Flow Rate FiO2 06/17/16 12:00 72 06/17/16 12:00 97.7 20 119/63 97 Nasal Cannula 2.0 06/17/16 07:58 32 Laboratory Tests Test 06/17/16 05:35 White Blood Count 8.3 K/UL (4.8-10.8) Red Blood Count 3.71 M/UL (4.70-6.10) L Hemoglobin 11.4 G/DL (14.2-18.0) L Hematocrit 34.6 % (42.0-52.0) L Mean Corpuscular Volume 93 FL (80-99) Mean Corpuscular Hemoglobin 30.8 PG (27.0-31.0) Mean Corpuscular Hemoglobin Concent 33.1 G/DL (32.0-36.0) Red Cell Distribution Width 14.3 % (11.6-14.8) Platelet Count 193 K/UL (150-450) Mean Platelet Volume 7.2 FL (6.5-10.1) Neutrophils (%) (Auto) 66.5 % (45.0-75.0) Lymphocytes (%) (Auto) 19.5 % (20.0-45.0) L Monocytes (%) (Auto) 10.8 % (1.0-10.0) H Eosinophils (%) (Auto) 2.4 % (0.0-3.0) Basophils (%) (Auto) 0.9 % (0.0-2.0) Sodium Level 137 mEQ/L (135-145) Potassium Level 4.3 mEQ/L (3.4-4.9) Chloride Level 92 mEQ/L (98-107) L Carbon Dioxide Level 40 mEQ/L (20-30) H Anion Gap 5 (5-15) Blood Urea Nitrogen 30 mg/dL (7-23) H Creatinine 1.3 mg/dL (0.7-1.2) H Estimat Glomerular Filtration Rate 56.1 mL/min (>60) Glucose Level 151 mg/dL (74-106) H Calcium Level 9.0 mg/dL (8.6-10.2) Total Bilirubin 0.8 mg/dL (0.0-1.2) Aspartate Amino Transf (AST/SGOT) 22 U/L (5-40) Alanine Aminotransferase (ALT/SGPT) 13 U/L (3-41) Alkaline Phosphatase 108 U/L (40-129) Total Protein 5.7 g/dL (6.6-8.7) L Albumin 3.1 g/dL (3.5-5.2) L Globulin 2.6 g/dL Albumin/Globulin Ratio 1.1 (1.0-2.7) Intake and Output 06/16/16 06/17/16 19:00 07:00 Intake Total 480 ml 250 ml Output Total 1800 ml 2400 ml Balance -1320 ml -2150 ml Intake Oral 480 ml 250 ml Output Urine Total 1800 ml 2400 ml # Bowel Movements 1 2 Objective General Appearance: WD/WN, moderate distress, obese EENT: PERRL/EOMI, normal ENT inspection Neck: non-tender, normal alignment, supple, normal inspection Cardiovascular: normal peripheral pulses, normal rate, regular rhythm, no gallop/murmur, no JVD Respiratory/Chest: Nasal Canula; chest wall non-tender, respiratory distress, decreased breath sounds - right, crackles/rales, rhonchi - bilaterally, expiratory wheezing Abdomen: normal bowel sounds, non tender, soft, no organomegaly, no mass Extremities: normal range of motion 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 Tolerating nasal canula. See pulmonary note. (2) CAD (coronary artery disease) (3) Diabetes mellitus Assessment & Plan: Cont novolog sliding scale. (4) Cerebral vascular disease (5) Right hemiparesis (6) Cardiomegaly (7) Pleural effusion, right Assessment & Plan: Right. Refused throacentesis. (8) Peripheral vascular disease Assessment & Plan: S/P stent and toe amputation (9) CHF exacerbation Assessment & Plan: Cont IV lasix. See cardiology note. (10) Cardiomyopathy (11) Morbid obesity (12) COPD (chronic obstructive pulmonary disease) (13) HTN (hypertension) Assessment & Plan: Cont lisinopril, spironolactone and bystolic (14) Atrial fibrillation Assessment & Plan: Paroxysmal; currently sinus. On eliquis. See cardiology note. Status: progressing ALLAN MORSE Jun 17, 2016 14:16
[2016-06-17 16:00] VITALS: BP 117/63
[2016-06-17 20:00] VITALS: BP 102/54
[2016-06-18] VITALS: BP 121/70
[2016-06-18 04:00] VITALS: BP 123/65
[2016-06-18 05:25] LABS: EOSINOPHILS % (AUTO) 3.1 % (0.0-3.0); LYMPHOCYTES % (AUTO) 23.8 % (20.0-45.0); MEAN CORPUSCULAR HEMOGLOBIN 30.5 PG (27.0-31.0); MEAN CORPUSCULAR HGB CONC 32.6 G/DL (32.0-36.0); MEAN CORPUSCULAR VOLUME 94 FL (80-99); MEAN PLATELET VOLUME 7.7 FL (6.5-10.1); MONOCYTES % (AUTO) 12.1 % (1.0-10.0); PLATELET COUNT 208 K/UL (150-450); RED BLOOD COUNT 3.67 M/UL (4.70-6.10); RED CELL DISTRIBUTION WIDTH 14.5 % (11.6-14.8); WHITE BLOOD COUNT 7.2 K/UL (4.8-10.8)
[2016-06-18 06:01] LABS: ALBUMIN/GLOBULIN RATIO 1.1 (1.0-2.7); CALCIUM 9.1 mg/dL (8.6-10.2); CREATININE 1.5 mg/dL (0.7-1.2); GLOMERULAR FILTRATION RATE 47.6 mL/min (>60); POTASSIUM 4.3 mEQ/L (3.4-4.9); TOTAL PROTEIN 5.9 g/dL (6.6-8.7)
[2016-06-18] MEDS: NovoLOG Insulin Flexpen SUBQ SCH ×4 (06:08→20:47)
[2016-06-18 08:00] VITALS: BP 117/62
--- NOTE | 2016-06-18 08:41 | Pulmonology Progress Note ---
Assessment/Plan Problems: (1) Respiratory distress (2) CHF exacerbation (3) COPD (chronic obstructive pulmonary disease) (4) Morbid obesity (5) Cardiomyopathy Assessment/Plan dc geoffrey randalljoon of rising bun/creatinine cxr has not changed yet. check electrolytes, daily cxr daily check electrotlyes pt/ot optimize cardiac meds Subjective ROS Limited/Unobtainable: No Constitutional: Reports: no symptoms HEENT: Repors: no symptoms Respiratory: Reports: no symptoms Allergies: Coded Allergies: LATEX, NATURAL RUBBER (Verified Allergy, Unknown, 06/10/16) Objective Last 24 Hour Vital Signs Date Time Temp Pulse Resp B/P Pulse Ox O2 Delivery O2 Flow Rate FiO2 06/18/16 07:37 95 Nasal Cannula 2.0 28 06/18/16 07:37 Nasal Cannula 2.0 28 06/18/16 07:35 68 20 Nasal Cannula 2.0 28 06/18/16 05:00 Nasal Cannula 2.0 28 06/18/16 04:00 97.4 66 24 123/65 95 Bi-pap 30 06/18/16 04:00 30 06/18/16 03:31 62 06/18/16 02:35 69 21 98 Facial 30 06/18/16 00:45 73 21 97 Facial 30 06/18/16 00:00 30 06/18/16 00:00 30 06/18/16 00:00 97.9 67 20 121/70 95 Bi-pap 30 06/17/16 23:25 66 06/17/16 22:30 68 19 97 Facial 30 06/17/16 21:00 30 06/17/16 20:50 67 21 97 Facial 30 06/17/16 20:00 97.5 61 18 102/54 97 Bi-pap 30 06/17/16 19:17 62 06/17/16 18:50 96 Bi-pap 30 06/17/16 18:50 Bi-pap 30 06/17/16 18:50 65 20 96 Facial 30 06/17/16 18:50 65 20 Bi-pap 30 06/17/16 17:44 97.7 06/17/16 16:00 97.3 67 18 117/63 98 Nasal Cannula 2.0 06/17/16 15:33 67 06/17/16 12:00 72 06/17/16 12:00 97.7 69 20 119/63 97 Nasal Cannula 2.0 06/17/16 09:00 112/59 06/17/16 09:00 67 Intake and Output 06/17/16 06/18/16 19:00 07:00 Intake Total 220 ml 500 ml Output Total 900 ml 1700 ml Balance -680 ml -1200 ml Intake Oral 220 ml 500 ml Output Urine Total 900 ml 1700 ml # Bowel Movements 1 1 Objective feeling better, did PT, sat on the bed yesterday General Appearance: WD/WN HEENT: normocephalic Cardiovascular: normal peripheral pulses, normal rate Abdomen: normal bowel sounds, soft, non tender Extremities: no cyanosis Skin: no ulcers 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 Lymphatic: no neck adenopathy Laboratory Tests 06/18/16 04:50: White Blood Count 7.2, Red Blood Count 3.67L, Hemoglobin 11.2L, Hematocrit 34.4L , Mean Corpuscular Volume 94, Mean Corpuscular Hemoglobin 30.5, Mean Corpuscular Hemoglobin Concent 32.6, Red Cell Distribution Width 14.5, Platelet Count 208, Mean Platelet Volume 7.7, Neutrophils (%) (Auto) 60.0, Lymphocytes (% ) (Auto) 23.8, Monocytes (%) (Auto) 12.1H, Eosinophils (%) (Auto) 3.1H, Basophils (%) (Auto) 1.0, Sodium Level 138, Potassium Level 4.3, Chloride Level 90L, Carbon Dioxide Level 38H, Anion Gap 10, Blood Urea Nitrogen 36H, Creatinine 1.5H, Estimat Glomerular Filtration Rate 47.6, Glucose Level 124H, Calcium Level 9.1, Total Bilirubin 0.7, Aspartate Amino Transf (AST/SGOT) 25, Alanine Aminotransferase (ALT/SGPT) 14, Alkaline Phosphatase 107, Total Protein 5.9L, Albumin 3.1L, Globulin 2.8, Albumin/Globulin Ratio 1.1 Current Medications Medications (Trade) Dose Ordered Sig/Alec Route PRN Reason Start Time Stop Time Status Last Admin Dose Admin Acetaminophen (Tylenol) 650 mg Q4H PRN ORAL Mild Pain/Temp > 100.5 06/17/16 16:45 07/17/16 16:44 06/17/16 16:45 Apixaban (Eliquis) 5 mg BID ORAL 06/11/16 09:00 07/11/16 08:59 06/17/16 18:13 Dextrose (Dextrose 50%) STAT PRN IV Hypoglycemia 06/10/16 20:45 07/10/16 20:44 Furosemide (Lasix) 60 mg EVERY 8 HOURS IV 06/14/16 22:00 07/14/16 21:59 06/18/16 06:41 Insulin Aspart (NovoLOG) BEFORE MEALS AND HS SUBQ 06/10/16 21:00 07/10/16 20:59 06/17/16 22:10 Lisinopril (Zestril) 10 mg DAILY ORAL 06/12/16 09:00 07/12/16 08:59 06/17/16 09:00 Nebivolol (Bystolic) 10 mg DAILY ORAL 06/11/16 09:00 07/11/16 08:59 06/17/16 08:59 Ondansetron HCl (Zofran) 4 mg Q6H PRN IVP Nausea & Vomiting 06/10/16 20:45 07/10/16 20:44 Polyethylene Glycol (Miralax) 17 gm DAILYPRN PRN ORAL Constipation 06/10/16 20:45 07/10/16 20:44 06/13/16 08:14 Spironolactone (Aldactone) 25 mg DAILY ORAL 06/12/16 09:00 07/12/16 08:59 06/17/16 09:00 Tamsulosin HCl (Flomax) 0.4 mg DAILY ORAL 06/11/16 09:00 07/11/16 08:59 06/17/16 09:01 QUYNH BEAR Jun 18, 2016 08:41
[2016-06-18] MEDS: Eliquis 2.5mg tablet ORAL SCH ×2 (08:47→17:43)
[2016-06-18] MEDS: Spironolactone 25mg tab ORAL SCH (08:47)
[2016-06-18] MEDS: Lisinopril 10mg tab ORAL SCH (08:47)
[2016-06-18] MEDS: Tamsulosin 0.4mg cap ORAL SCH (08:48)
--- NOTE | 2016-06-18 10:47 | Internal Med Progress Note ---
Subjective Date of Service: Jun 18, 2016 Physician Name Allan Rodriguez Attending Physician Taiwo Palma MD Current Medications Medications (Trade) Dose Ordered Sig/Alec Route PRN Reason Start Time Stop Time Status Last Admin Dose Admin Acetaminophen (Tylenol) 650 mg Q4H PRN ORAL Mild Pain/Temp > 100.5 06/17/16 16:45 07/17/16 16:44 06/17/16 16:45 Apixaban (Eliquis) 5 mg BID ORAL 06/11/16 09:00 07/11/16 08:59 06/18/16 08:47 Dextrose (Dextrose 50%) STAT PRN IV Hypoglycemia 06/10/16 20:45 07/10/16 20:44 Insulin Aspart (NovoLOG) BEFORE MEALS AND HS SUBQ 06/10/16 21:00 07/10/16 20:59 06/17/16 22:10 Lisinopril (Zestril) 10 mg DAILY ORAL 06/12/16 09:00 07/12/16 08:59 06/18/16 08:47 Nebivolol (Bystolic) 10 mg DAILY ORAL 06/11/16 09:00 07/11/16 08:59 06/18/16 08:47 Ondansetron HCl (Zofran) 4 mg Q6H PRN IVP Nausea & Vomiting 06/10/16 20:45 07/10/16 20:44 Polyethylene Glycol (Miralax) 17 gm DAILYPRN PRN ORAL Constipation 06/10/16 20:45 07/10/16 20:44 06/13/16 08:14 Spironolactone (Aldactone) 25 mg DAILY ORAL 06/12/16 09:00 07/12/16 08:59 06/18/16 08:47 Tamsulosin HCl (Flomax) 0.4 mg DAILY ORAL 06/11/16 09:00 07/11/16 08:59 06/18/16 08:48 Allergies: Coded Allergies: LATEX, NATURAL RUBBER (Verified Allergy, Unknown, 06/10/16) ROS Limited/Unobtainable: No Constitutional: Reports: no symptoms HEENT: Reports: no symptoms Cardiovascular: Reports: no symptoms Respiratory: Reports: shortness of breath Gastrointestinal/Abdominal: Reports: no symptoms Genitourinary: Reports: no symptoms Neurologic/Psychiatric: Reports: no symptoms Subjective 60 YO M admitted with shortness of breath, now congestive heart failure. Cover for Int Michel-Dr Palma. DARIAN. Tolerating nasal canula. Refused thoracentesis Objective Last Vital Signs Date Time Temp Pulse Resp B/P Pulse Ox O2 Delivery O2 Flow Rate FiO2 06/18/16 08:47 117/62 06/18/16 08:00 96.7 68 18 99 Nasal Cannula 2.0 06/18/16 07:37 28 Laboratory Tests Test 06/18/16 04:50 White Blood Count 7.2 K/UL (4.8-10.8) Red Blood Count 3.67 M/UL (4.70-6.10) L Hemoglobin 11.2 G/DL (14.2-18.0) L Hematocrit 34.4 % (42.0-52.0) L Mean Corpuscular Volume 94 FL (80-99) Mean Corpuscular Hemoglobin 30.5 PG (27.0-31.0) Mean Corpuscular Hemoglobin Concent 32.6 G/DL (32.0-36.0) Red Cell Distribution Width 14.5 % (11.6-14.8) Platelet Count 208 K/UL (150-450) Mean Platelet Volume 7.7 FL (6.5-10.1) Neutrophils (%) (Auto) 60.0 % (45.0-75.0) Lymphocytes (%) (Auto) 23.8 % (20.0-45.0) Monocytes (%) (Auto) 12.1 % (1.0-10.0) H Eosinophils (%) (Auto) 3.1 % (0.0-3.0) H Basophils (%) (Auto) 1.0 % (0.0-2.0) Sodium Level 138 mEQ/L (135-145) Potassium Level 4.3 mEQ/L (3.4-4.9) Chloride Level 90 mEQ/L (98-107) L Carbon Dioxide Level 38 mEQ/L (20-30) H Anion Gap 10 (5-15) Blood Urea Nitrogen 36 mg/dL (7-23) H Creatinine 1.5 mg/dL (0.7-1.2) H Estimat Glomerular Filtration Rate 47.6 mL/min (>60) Glucose Level 124 mg/dL (74-106) H Calcium Level 9.1 mg/dL (8.6-10.2) Total Bilirubin 0.7 mg/dL (0.0-1.2) Aspartate Amino Transf (AST/SGOT) 25 U/L (5-40) Alanine Aminotransferase (ALT/SGPT) 14 U/L (3-41) Alkaline Phosphatase 107 U/L (40-129) Total Protein 5.9 g/dL (6.6-8.7) L Albumin 3.1 g/dL (3.5-5.2) L Globulin 2.8 g/dL Albumin/Globulin Ratio 1.1 (1.0-2.7) Intake and Output 06/17/16 06/18/16 19:00 07:00 Intake Total 220 ml 500 ml Output Total 900 ml 1700 ml Balance -680 ml -1200 ml Intake Oral 220 ml 500 ml Output Urine Total 900 ml 1700 ml # Bowel Movements 1 1 Objective General Appearance: WD/WN, moderate distress, obese EENT: PERRL/EOMI, normal ENT inspection Neck: non-tender, normal alignment, supple, normal inspection Cardiovascular: normal peripheral pulses, normal rate, regular rhythm, no gallop/murmur, no JVD Respiratory/Chest: Nasal Canula; chest wall non-tender, respiratory distress, decreased breath sounds - right, crackles/rales, rhonchi - bilaterally, expiratory wheezing Abdomen: normal bowel sounds, non tender, soft, no organomegaly, no mass Extremities: normal range of motion Neurologic: engraver letter II-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 Tolerating nasal canula. See pulmonary note. (2) CAD (coronary artery disease) (3) Diabetes mellitus Assessment & Plan: Patient refused novolog sliding scale. (4) Cerebral vascular disease (5) Right hemiparesis (6) Cardiomegaly (7) Pleural effusion, right Assessment & Plan: Right. Refused throacentesis. (8) Peripheral vascular disease Assessment & Plan: S/P stent and toe amputation (9) CHF exacerbation Assessment & Plan: EF 35-40%. D/C IV lasix due to worsening renal function. See pulmonary note. Followed by cardiology. (10) Cardiomyopathy (11) Morbid obesity (12) COPD (chronic obstructive pulmonary disease) (13) HTN (hypertension) Assessment & Plan: Cont lisinopril, spironolactone and bystolic (14) Atrial fibrillation Assessment & Plan: Paroxysmal; currently sinus. On eliquis. See cardiology note. Status: ALLAN Dupree Jun 18, 2016 10:47
--- NOTE | 2016-06-18 11:25 | Diagnostic Imaging Report ---
Indication: DYSPNEA Technique: One view of the chest Comparison: 06/17/2016 Findings: Moderate to large right-sided pleural effusion is again demonstrated. Smaller left-sided pleural effusion is likely present. Mild interstitial congestion persists, stable. Findings are again Impression: Unchanged, over one day, findings as above.
[2016-06-18 12:00] VITALS: BP 127/69
[2016-06-18 16:00] VITALS: BP 93/53
--- NOTE | 2016-06-18 19:50 | Cardiac Electrophysiology PN ---
Assessment/Plan Assessment/Plan 1. CHF exacerbation with EF 35%. Lasix DCed for Azotemia. Continue Bystolic 10, lisinopril and Aldactone. 2. Paroxysmal atrial fibrillation. On Eliquis 5 mg b.i.d. and Bystolic 3. HTN on Bystolic, lisinopril and Aldactone 4. Chronic obstructive pulmonary disease. 5. Diabetes, on metformin. 6. Morbid obesity. 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 Objective Last 24 Hour Vital Signs Date Time Temp Pulse Resp B/P Pulse Ox O2 Delivery O2 Flow Rate FiO2 06/18/16 19:37 70 16 98 Facial 30 06/18/16 19:32 94 Nasal Cannula 2.0 28 06/18/16 19:32 Nasal Cannula 2.0 28 06/18/16 19:31 70 20 Nasal Cannula 2.0 28 06/18/16 16:00 65 06/18/16 16:00 97.9 66 20 93/53 96 Nasal Cannula 2.0 06/18/16 12:00 96.6 68 18 127/69 99 Nasal Cannula 2.0 06/18/16 12:00 68 06/18/16 08:47 117/62 06/18/16 08:00 69 06/18/16 08:00 96.7 68 18 117/62 99 Nasal Cannula 2.0 06/18/16 07:37 95 Nasal Cannula 2.0 28 06/18/16 07:37 Nasal Cannula 2.0 28 06/18/16 07:35 68 20 Nasal Cannula 2.0 28 06/18/16 05:00 Nasal Cannula 2.0 28 06/18/16 04:00 97.4 66 24 123/65 95 Bi-pap 30 06/18/16 04:00 30 06/18/16 03:31 62 06/18/16 02:35 69 21 98 Facial 30 06/18/16 00:45 73 21 97 Facial 30 06/18/16 00:00 30 06/18/16 00:00 30 06/18/16 00:00 97.9 67 20 121/70 95 Bi-pap 30 06/17/16 23:25 66 06/17/16 22:30 68 19 97 Facial 30 06/17/16 21:00 30 06/17/16 20:50 67 21 97 Facial 30 06/17/16 20:00 97.5 61 18 102/54 97 Bi-pap 30 Intake and Output 06/17/16 06/18/16 19:00 07:00 Intake Total 220 ml 500 ml Output Total 900 ml 1700 ml Balance -680 ml -1200 ml Intake Oral 220 ml 500 ml Output Urine Total 900 ml 1700 ml # Bowel Movements 1 1 Laboratory Tests Test 06/18/16 04:50 White Blood Count 7.2 K/UL (4.8-10.8) Red Blood Count 3.67 M/UL (4.70-6.10) L Hemoglobin 11.2 G/DL (14.2-18.0) L Hematocrit 34.4 % (42.0-52.0) L Mean Corpuscular Volume 94 FL (80-99) Mean Corpuscular Hemoglobin 30.5 PG (27.0-31.0) Mean Corpuscular Hemoglobin Concent 32.6 G/DL (32.0-36.0) Red Cell Distribution Width 14.5 % (11.6-14.8) Platelet Count 208 K/UL (150-450) Mean Platelet Volume 7.7 FL (6.5-10.1) Neutrophils (%) (Auto) 60.0 % (45.0-75.0) Lymphocytes (%) (Auto) 23.8 % (20.0-45.0) Monocytes (%) (Auto) 12.1 % (1.0-10.0) H Eosinophils (%) (Auto) 3.1 % (0.0-3.0) H Basophils (%) (Auto) 1.0 % (0.0-2.0) Sodium Level 138 mEQ/L (135-145) Potassium Level 4.3 mEQ/L (3.4-4.9) Chloride Level 90 mEQ/L (98-107) L Carbon Dioxide Level 38 mEQ/L (20-30) H Anion Gap 10 (5-15) Blood Urea Nitrogen 36 mg/dL (7-23) H Creatinine 1.5 mg/dL (0.7-1.2) H Estimat Glomerular Filtration Rate 47.6 mL/min (>60) Glucose Level 124 mg/dL (74-106) H Calcium Level 9.1 mg/dL (8.6-10.2) Total Bilirubin 0.7 mg/dL (0.0-1.2) Aspartate Amino Transf (AST/SGOT) 25 U/L (5-40) Alanine Aminotransferase (ALT/SGPT) 14 U/L (3-41) Alkaline Phosphatase 107 U/L (40-129) Total Protein 5.9 g/dL (6.6-8.7) L Albumin 3.1 g/dL (3.5-5.2) L Globulin 2.8 g/dL Albumin/Globulin Ratio 1.1 (1.0-2.7) Objective HEENT: Mild jugular venous distention. LUNGS: Decreased breath sounds. CARDIOVASCULAR: Showed distant heart sounds with no gallop or rub. ABDOMEN: Morbidly obese. EXTREMITIES: 2+ pitting edema. MICHELLE ROWE Jun 18, 2016 19:49
[2016-06-18 20:00] VITALS: BP 91/54
[2016-06-19 00:30] VITALS: BP 114/64
[2016-06-19 04:00] VITALS: BP 117/62
[2016-06-19] MEDS: NovoLOG Insulin Flexpen SUBQ SCH ×4 (05:49→20:39)
[2016-06-19 07:25] LABS: ALBUMIN/GLOBULIN RATIO 0.8 (1.0-2.7); BASOPHILS % (AUTO) 0.8 % (0.0-2.0); CALCIUM 8.9 mg/dL (8.6-10.2); CREATININE 1.3 mg/dL (0.7-1.2); EOSINOPHILS % (AUTO) 2.6 % (0.0-3.0); GLOMERULAR FILTRATION RATE 56.1 mL/min (>60); LYMPHOCYTES % (AUTO) 24.5 % (20.0-45.0); MEAN CORPUSCULAR HGB CONC 34.2 G/DL (32.0-36.0); MEAN CORPUSCULAR VOLUME 94 FL (80-99); MEAN PLATELET VOLUME 7.5 FL (6.5-10.1); MONOCYTES % (AUTO) 12.1 % (1.0-10.0); NEUTROPHILS % (AUTO) 60.1 % (45.0-75.0); PLATELET COUNT 199 K/UL (150-450); POTASSIUM 4.4 mEQ/L (3.4-4.9); RED BLOOD COUNT 3.61 M/UL (4.70-6.10); RED CELL DISTRIBUTION WIDTH 14.4 % (11.6-14.8); WHITE BLOOD COUNT 7.5 K/UL (4.8-10.8)
[2016-06-19 08:00] VITALS: BP 113/67
[2016-06-19] MEDS: Lisinopril 10mg tab ORAL SCH (09:00)
[2016-06-19] MEDS: Spironolactone 25mg tab ORAL SCH (09:32)
[2016-06-19] MEDS: Eliquis 2.5mg tablet ORAL SCH ×2 (09:33→17:42)
[2016-06-19] MEDS: Tamsulosin 0.4mg cap ORAL SCH (09:33)
--- NOTE | 2016-06-19 10:00 | Cardiac Electrophysiology PN ---
Assessment/Plan Assessment/Plan 1. CHF exacerbation with EF 35%. IV Lasix DCed for Azotemia. Continue Bystolic 10, lisinopril and Aldactone. Start Lasix 40 mg po daily. 2. Paroxysmal atrial fibrillation. On Eliquis 5 mg b.i.d. and Bystolic 3. HTN on Bystolic, lisinopril and Aldactone 4. Chronic obstructive pulmonary disease. 5. Diabetes, on metformin. 6. Morbid obesity. 7. S/P embolic CVA with expressive aphasia DW RN Subjective Subjective Remained in SR.Off Lasix for Azotemia. RN at bedside. Wants to go home. Objective Last 24 Hour Vital Signs Date Time Temp Pulse Resp B/P Pulse Ox O2 Delivery O2 Flow Rate FiO2 06/19/16 08:20 Nasal Cannula 2.0 28 06/19/16 08:20 95 Nasal Cannula 2.0 28 06/19/16 08:19 65 20 Nasal Cannula 2.0 28 06/19/16 08:00 96.9 66 19 113/67 96 Bi-pap 06/19/16 05:18 72 18 97 Facial 30 06/19/16 04:00 97.4 61 19 117/62 98 Bi-pap 06/19/16 01:30 68 16 97 Facial 30 06/19/16 00:30 99.0 61 22 114/64 Bi-pap 06/19/16 00:00 40 06/18/16 23:54 60 06/18/16 20:00 63 06/18/16 20:00 97.7 63 18 91/54 Bi-pap 06/18/16 19:48 97.9 06/18/16 19:37 70 16 98 Facial 30 06/18/16 19:32 94 Nasal Cannula 2.0 28 06/18/16 19:32 Nasal Cannula 2.0 28 06/18/16 19:31 70 20 Nasal Cannula 2.0 28 06/18/16 16:00 65 06/18/16 16:00 97.9 66 20 93/53 96 Nasal Cannula 2.0 06/18/16 12:00 96.6 68 18 127/69 99 Nasal Cannula 2.0 06/18/16 12:00 68 Intake and Output 06/18/16 06/19/16 19:00 07:00 Intake Total 200 ml Output Total 500 ml 1400 ml Balance -500 ml -1200 ml Intake Oral 200 ml Output Urine Total 500 ml 1400 ml # Bowel Movements 2 Laboratory Tests Test 06/19/16 05:40 White Blood Count 7.5 K/UL (4.8-10.8) Red Blood Count 3.61 M/UL (4.70-6.10) L Hemoglobin 11.6 G/DL (14.2-18.0) L Hematocrit 33.8 % (42.0-52.0) L Mean Corpuscular Volume 94 FL (80-99) Mean Corpuscular Hemoglobin 32.0 PG (27.0-31.0) H Mean Corpuscular Hemoglobin Concent 34.2 G/DL (32.0-36.0) Red Cell Distribution Width 14.4 % (11.6-14.8) Platelet Count 199 K/UL (150-450) Mean Platelet Volume 7.5 FL (6.5-10.1) Neutrophils (%) (Auto) 60.1 % (45.0-75.0) Lymphocytes (%) (Auto) 24.5 % (20.0-45.0) Monocytes (%) (Auto) 12.1 % (1.0-10.0) H Eosinophils (%) (Auto) 2.6 % (0.0-3.0) Basophils (%) (Auto) 0.8 % (0.0-2.0) Sodium Level 138 mEQ/L (135-145) Potassium Level 4.4 mEQ/L (3.4-4.9) Chloride Level 92 mEQ/L (98-107) L Carbon Dioxide Level 36 mEQ/L (20-30) H Anion Gap 10 (5-15) Blood Urea Nitrogen 35 mg/dL (7-23) H Creatinine 1.3 mg/dL (0.7-1.2) H Estimat Glomerular Filtration Rate 56.1 mL/min (>60) Glucose Level 123 mg/dL (74-106) H Calcium Level 8.9 mg/dL (8.6-10.2) Total Bilirubin 0.9 mg/dL (0.0-1.2) Aspartate Amino Transf (AST/SGOT) 24 U/L (5-40) Alanine Aminotransferase (ALT/SGPT) 14 U/L (3-41) Alkaline Phosphatase 109 U/L (40-129) Pro-B-Type Natriuretic Peptide 5772 pg/mL (0-125) H Total Protein 6.0 g/dL (6.6-8.7) L Albumin 2.8 g/dL (3.5-5.2) L Globulin 3.2 g/dL Albumin/Globulin Ratio 0.8 (1.0-2.7) L Objective HEENT: Mild jugular venous distention. LUNGS: Decreased breath sounds. CARDIOVASCULAR: Showed distant heart sounds with no gallop or rub. ABDOMEN: Morbidly obese. EXTREMITIES: 1+ pitting edema. MICHELLE ROWE Jun 19, 2016 10:00
[2016-06-19] MEDS: Furosemide 40mg tab ORAL SCH (11:08)
[2016-06-19] MEDS ORDERED: Miralax 17gm pkt ORAL PRN ×2 (11:45→20:45)
[2016-06-19 12:00] VITALS: BP 109/95
--- NOTE | 2016-06-19 12:30 | Diagnostic Imaging Report ---
Indication: DYSPNEA Technique: One view of the chest Comparison: 06/18/2016 Findings: The heart remains enlarged. Right-sided pleural effusion persists, unchanged. Mild interstitial congestive changes persist, unchanged Impression: Unchanged, over one day, findings as above.
[2016-06-19 16:00] VITALS: BP 150/70
--- NOTE | 2016-06-19 16:44 | Internal Med Progress Note ---
Subjective Date of Service: Jun 19, 2016 Physician Name Eze Morse Attending Physician Taiwo Palma MD Current Medications Medications (Trade) Dose Ordered Sig/Alec Route PRN Reason Start Time Stop Time Status Last Admin Dose Admin Acetaminophen (Tylenol) 650 mg Q4H PRN ORAL Mild Pain/Temp > 100.5 06/19/16 04:45 07/19/16 04:44 Apixaban (Eliquis) 5 mg BID ORAL 06/19/16 09:00 07/19/16 08:59 06/19/16 09:33 Dextrose (Dextrose 50%) STAT PRN IV Hypoglycemia 06/19/16 20:45 07/19/16 20:44 Furosemide (Lasix) 40 mg DAILY ORAL 06/19/16 11:00 07/19/16 10:59 06/19/16 11:08 Insulin Aspart (NovoLOG) BEFORE MEALS AND HS SUBQ 06/19/16 06:30 07/19/16 06:29 06/19/16 11:15 Lisinopril (Zestril) 10 mg DAILY ORAL 06/19/16 09:00 07/19/16 08:59 Nebivolol (Bystolic) 10 mg DAILY ORAL 06/19/16 09:00 07/19/16 08:59 06/19/16 09:33 Ondansetron HCl (Zofran) 4 mg Q6H PRN IVP Nausea & Vomiting 06/19/16 02:45 07/19/16 02:44 Polyethylene Glycol (Miralax) 17 gm DAILYPRN PRN ORAL Constipation 06/19/16 11:45 07/19/16 11:44 06/19/16 11:57 Spironolactone (Aldactone) 25 mg DAILY ORAL 06/19/16 09:00 07/19/16 08:59 06/19/16 09:32 Tamsulosin HCl (Flomax) 0.4 mg DAILY ORAL 06/19/16 09:00 07/19/16 08:59 06/19/16 09:33 Allergies: Coded Allergies: LATEX, NATURAL RUBBER (Verified Allergy, Unknown, 06/10/16) ROS Limited/Unobtainable: No Constitutional: Reports: no symptoms HEENT: Reports: no symptoms Cardiovascular: Reports: no symptoms Respiratory: Reports: no symptoms Gastrointestinal/Abdominal: Reports: no symptoms Genitourinary: Reports: no symptoms Neurologic/Psychiatric: Reports: no symptoms Subjective 60 YO M admitted with shortness of breath, now congestive heart failure. Cover for Int Med-Dr Palma. Tolerating nasal canula. Refused thoracentesis 06/12/16 Objective Last Vital Signs Date Time Temp Pulse Resp B/P Pulse Ox O2 Delivery O2 Flow Rate FiO2 06/19/16 12:00 97.2 68 19 109/95 94 Bi-pap 06/19/16 08:20 2.0 28 Laboratory Tests Test 06/19/16 05:40 White Blood Count 7.5 K/UL (4.8-10.8) Red Blood Count 3.61 M/UL (4.70-6.10) L Hemoglobin 11.6 G/DL (14.2-18.0) L Hematocrit 33.8 % (42.0-52.0) L Mean Corpuscular Volume 94 FL (80-99) Mean Corpuscular Hemoglobin 32.0 PG (27.0-31.0) H Mean Corpuscular Hemoglobin Concent 34.2 G/DL (32.0-36.0) Red Cell Distribution Width 14.4 % (11.6-14.8) Platelet Count 199 K/UL (150-450) Mean Platelet Volume 7.5 FL (6.5-10.1) Neutrophils (%) (Auto) 60.1 % (45.0-75.0) Lymphocytes (%) (Auto) 24.5 % (20.0-45.0) Monocytes (%) (Auto) 12.1 % (1.0-10.0) H Eosinophils (%) (Auto) 2.6 % (0.0-3.0) Basophils (%) (Auto) 0.8 % (0.0-2.0) Sodium Level 138 mEQ/L (135-145) Potassium Level 4.4 mEQ/L (3.4-4.9) Chloride Level 92 mEQ/L (98-107) L Carbon Dioxide Level 36 mEQ/L (20-30) H Anion Gap 10 (5-15) Blood Urea Nitrogen 35 mg/dL (7-23) H Creatinine 1.3 mg/dL (0.7-1.2) H Estimat Glomerular Filtration Rate 56.1 mL/min (>60) Glucose Level 123 mg/dL (74-106) H Calcium Level 8.9 mg/dL (8.6-10.2) Total Bilirubin 0.9 mg/dL (0.0-1.2) Aspartate Amino Transf (AST/SGOT) 24 U/L (5-40) Alanine Aminotransferase (ALT/SGPT) 14 U/L (3-41) Alkaline Phosphatase 109 U/L (40-129) Pro-B-Type Natriuretic Peptide 5772 pg/mL (0-125) H Total Protein 6.0 g/dL (6.6-8.7) L Albumin 2.8 g/dL (3.5-5.2) L Globulin 3.2 g/dL Albumin/Globulin Ratio 0.8 (1.0-2.7) L Intake and Output 06/18/16 06/19/16 19:00 07:00 Intake Total 200 ml Output Total 500 ml 1400 ml Balance -500 ml -1200 ml Intake Oral 200 ml Output Urine Total 500 ml 1400 ml # Bowel Movements 2 Objective General Appearance: WD/WN, moderate distress, obese EENT: PERRL/EOMI, normal ENT inspection Neck: non-tender, normal alignment, supple, normal inspection Cardiovascular: normal peripheral pulses, normal rate, regular rhythm, no gallop/murmur, no JVD Respiratory/Chest: Nasal Canula; chest wall non-tender, respiratory distress, decreased breath sounds - right, crackles/rales, rhonchi - bilaterally, expiratory wheezing Abdomen: normal bowel sounds, non tender, soft, no organomegaly, no mass Extremities: normal range of motion Neurologic: screw remover II-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 Tolerating nasal canula. See pulmonary note. (2) CAD (coronary artery disease) (3) Diabetes mellitus Assessment & Plan: Patient refused novolog sliding scale. (4) Cerebral vascular disease (5) Right hemiparesis (6) Cardiomegaly (7) Pleural effusion, right Assessment & Plan: Right. Refused throacentesis. (8) Peripheral vascular disease Assessment & Plan: S/P stent and toe amputation (9) CHF exacerbation Assessment & Plan: EF 35-40%. D/C IV lasix due to worsening renal function. See pulmonary note. Followed by cardiology. (10) Cardiomyopathy (11) Morbid obesity (12) COPD (chronic obstructive pulmonary disease) (13) HTN (hypertension) Assessment & Plan: Cont lisinopril, spironolactone and bystolic (14) Atrial fibrillation Assessment & Plan: Paroxysmal; currently sinus. On eliquis. See cardiology note. Status: progressing Assessment/Plan D/C in am 06/20/16 if stable. EZE MORSE Jun 19, 2016 16:44
[2016-06-19 20:00] VITALS: BP 150/70
--- NOTE | 2016-06-19 23:37 | Pulmonology Progress Note ---
Assessment/Plan Problems: (1) Respiratory distress (2) CHF exacerbation (3) COPD (chronic obstructive pulmonary disease) (4) Morbid obesity (5) Cardiomyopathy Assessment/Plan dc geoffrey randalljoon of rising bun/creatinine cxr has not changed yet. check electrolytes, daily cxr daily check electrotlyes pt/ot optimize cardiac meds Subjective ROS Limited/Unobtainable: No Respiratory: Reports: dyspnea at rest, dyspnea on exertion, productive cough, shortness of breath, sputum, wheezing Allergies: Coded Allergies: LATEX, NATURAL RUBBER (Verified Allergy, Unknown, 06/10/16) Objective Last 24 Hour Vital Signs Date Time Temp Pulse Resp B/P Pulse Ox O2 Delivery O2 Flow Rate FiO2 06/19/16 20:42 69 17 99 Facial 30 06/19/16 20:41 Bi-pap 30 06/19/16 20:41 99 Bi-pap 30 06/19/16 20:40 69 19 Bi-pap 30 06/19/16 20:00 99.7 68 20 150/70 98 Bi-pap 06/19/16 16:00 99.7 68 20 150/70 98 Bi-pap 06/19/16 12:00 97.2 68 19 109/95 94 Bi-pap 06/19/16 08:20 Nasal Cannula 2.0 28 06/19/16 08:20 95 Nasal Cannula 2.0 28 06/19/16 08:19 65 20 Nasal Cannula 2.0 28 06/19/16 08:00 96.9 66 19 113/67 96 Bi-pap 06/19/16 05:18 72 18 97 Facial 30 06/19/16 04:00 97.4 61 19 117/62 98 Bi-pap 06/19/16 01:30 68 16 97 Facial 30 06/19/16 00:30 99.0 61 22 114/64 Bi-pap 06/19/16 00:00 40 06/18/16 23:54 60 Intake and Output 06/18/16 06/19/16 19:00 07:00 Intake Total 200 ml Output Total 500 ml 1400 ml Balance -500 ml -1200 ml Intake Oral 200 ml Output Urine Total 500 ml 1400 ml # Bowel Movements 2 Objective feeling better, did PT, sat on the bed yesterday General Appearance: no acute distress HEENT: normocephalic, atraumatic, PERRL Respiratory/Chest: chest wall non-tender, decreased breath sounds, accessory muscle use, crackles/rales, rhonchi Cardiovascular: normal peripheral pulses, normal rate, regular rhythm, no JVD Abdomen: normal bowel sounds, soft, non tender, no organomegaly, non distended Genitourinary: normal external genitalia Extremities: no clubbing Skin: rash, lesions Neurologic/Psychiatric: manager domestic II-XII grossly normal, no motor/sensory deficits Laboratory Tests 06/19/16 05:40: White Blood Count 7.5, Red Blood Count 3.61L, Hemoglobin 11.6L, Hematocrit 33.8L , Mean Corpuscular Volume 94, Mean Corpuscular Hemoglobin 32.0H, Mean Corpuscular Hemoglobin Concent 34.2, Red Cell Distribution Width 14.4, Platelet Count 199, Mean Platelet Volume 7.5, Neutrophils (%) (Auto) 60.1, Lymphocytes (% ) (Auto) 24.5, Monocytes (%) (Auto) 12.1H, Eosinophils (%) (Auto) 2.6, Basophils (%) (Auto) 0.8, Sodium Level 138, Potassium Level 4.4, Chloride Level 92L, Carbon Dioxide Level 36H, Anion Gap 10, Blood Urea Nitrogen 35H, Creatinine 1.3H, Estimat Glomerular Filtration Rate 56.1, Glucose Level 123H, Calcium Level 8.9, Total Bilirubin 0.9, Aspartate Amino Transf (AST/SGOT) 24, Alanine Aminotransferase (ALT/SGPT) 14, Alkaline Phosphatase 109, Pro-B-Type Natriuretic Peptide 5772H, Total Protein 6.0L, Albumin 2.8L, Globulin 3.2, Albumin/Globulin Ratio 0.8L Current Medications Medications (Trade) Dose Ordered Sig/Alec Route PRN Reason Start Time Stop Time Status Last Admin Dose Admin Acetaminophen (Tylenol) 650 mg Q4H PRN ORAL Mild Pain/Temp > 100.5 06/19/16 04:45 07/19/16 04:44 Apixaban (Eliquis) 5 mg BID ORAL 06/19/16 09:00 07/19/16 08:59 06/19/16 17:42 Dextrose (Dextrose 50%) STAT PRN IV Hypoglycemia 06/19/16 20:45 07/19/16 20:44 Furosemide (Lasix) 40 mg DAILY ORAL 06/19/16 11:00 07/19/16 10:59 06/19/16 11:08 Insulin Aspart (NovoLOG) BEFORE MEALS AND HS SUBQ 06/19/16 06:30 07/19/16 06:29 06/19/16 20:39 Lisinopril (Zestril) 10 mg DAILY ORAL 06/19/16 09:00 07/19/16 08:59 Nebivolol (Bystolic) 10 mg DAILY ORAL 06/19/16 09:00 07/19/16 08:59 06/19/16 09:33 Ondansetron HCl (Zofran) 4 mg Q6H PRN IVP Nausea & Vomiting 06/19/16 02:45 07/19/16 02:44 Polyethylene Glycol (Miralax) 17 gm DAILYPRN PRN ORAL Constipation 06/19/16 11:45 07/19/16 11:44 06/19/16 11:57 Spironolactone (Aldactone) 25 mg DAILY ORAL 06/19/16 09:00 07/19/16 08:59 06/19/16 09:32 Tamsulosin HCl (Flomax) 0.4 mg DAILY ORAL 06/19/16 09:00 07/19/16 08:59 06/19/16 09:33 QUYNH BEAR Jun 19, 2016 23:37
[2016-06-20] VITALS: BP 110/60
[2016-06-20 04:00] VITALS: BP 122/64
[2016-06-20] MEDS: NovoLOG Insulin Flexpen SUBQ SCH ×2 (06:15→11:30)
[2016-06-20 08:00] VITALS: BP 142/66
[2016-06-20] MEDS: Spironolactone 25mg tab ORAL SCH (09:50)
[2016-06-20] MEDS: Lisinopril 10mg tab ORAL SCH (09:50)
[2016-06-20] MEDS: Tamsulosin 0.4mg cap ORAL SCH (09:50)
[2016-06-20] MEDS: Furosemide 40mg tab ORAL SCH (09:50)
[2016-06-20] MEDS: Eliquis 2.5mg tablet ORAL SCH (09:51)
[2016-06-20 12:03] VITALS: BP 126/64
--- NOTE | 2016-06-20 12:31 | Internal Med Progress Note ---
Subjective Date of Service: Jun 20, 2016 Physician Name Eze Morse Attending Physician Taiwo Palma MD Current Medications Medications (Trade) Dose Ordered Sig/Alec Route PRN Reason Start Time Stop Time Status Last Admin Dose Admin Acetaminophen (Tylenol) 650 mg Q4H PRN ORAL Mild Pain/Temp > 100.5 06/19/16 04:45 07/19/16 04:44 Apixaban (Eliquis) 5 mg BID ORAL 06/19/16 09:00 07/19/16 08:59 06/20/16 09:51 Dextrose (Dextrose 50%) STAT PRN IV Hypoglycemia 06/19/16 20:45 07/19/16 20:44 Furosemide (Lasix) 40 mg DAILY ORAL 06/19/16 11:00 07/19/16 10:59 06/20/16 09:50 Insulin Aspart (NovoLOG) BEFORE MEALS AND HS SUBQ 06/19/16 06:30 07/19/16 06:29 06/20/16 06:15 Lisinopril (Zestril) 10 mg DAILY ORAL 06/19/16 09:00 07/19/16 08:59 06/20/16 09:50 Nebivolol (Bystolic) 10 mg DAILY ORAL 06/19/16 09:00 07/19/16 08:59 06/20/16 09:49 Ondansetron HCl (Zofran) 4 mg Q6H PRN IVP Nausea & Vomiting 06/19/16 02:45 07/19/16 02:44 Polyethylene Glycol (Miralax) 17 gm DAILYPRN PRN ORAL Constipation 06/19/16 11:45 07/19/16 11:44 06/19/16 11:57 Spironolactone (Aldactone) 25 mg DAILY ORAL 06/19/16 09:00 07/19/16 08:59 06/20/16 09:50 Tamsulosin HCl (Flomax) 0.4 mg DAILY ORAL 06/19/16 09:00 07/19/16 08:59 06/20/16 09:50 Allergies: Coded Allergies: LATEX, NATURAL RUBBER (Verified Allergy, Unknown, 06/10/16) ROS Limited/Unobtainable: No Constitutional: Reports: no symptoms HEENT: Reports: no symptoms Cardiovascular: Reports: no symptoms Respiratory: Reports: shortness of breath Gastrointestinal/Abdominal: Reports: no symptoms Genitourinary: Reports: no symptoms Neurologic/Psychiatric: Reports: no symptoms Subjective 60 YO M admitted with shortness of breath, now congestive heart failure. Cover for [facility] Palma. Tolerating nasal canula. Refused thoracentesis 06/12/16 Objective Last Vital Signs Date Time Temp Pulse Resp B/P Pulse Ox O2 Delivery O2 Flow Rate FiO2 06/20/16 12:03 97.0 71 18 126/64 90 Room Air 06/20/16 07:50 2.0 28 Intake and Output 06/19/16 06/20/16 19:00 07:00 Intake Total 240 ml Output Total 1275 ml Balance 240 ml -1275 ml Intake Oral 240 ml Output Urine Total 1275 ml # Bowel Movements 3 2 Objective General Appearance: WD/WN, moderate distress, obese EENT: PERRL/EOMI, normal ENT inspection Neck: non-tender, normal alignment, supple, normal inspection Cardiovascular: normal peripheral pulses, normal rate, regular rhythm, no gallop/murmur, no JVD Respiratory/Chest: Nasal Canula; chest wall non-tender, respiratory distress, decreased breath sounds - right, crackles/rales, rhonchi - bilaterally, expiratory wheezing Abdomen: normal bowel sounds, non tender, soft, no organomegaly, no mass Extremities: normal range of motion 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 Tolerating nasal canula. See pulmonary note. (2) CAD (coronary artery disease) (3) Diabetes mellitus Assessment & Plan: Patient refused novolog sliding scale. (4) Cerebral vascular disease (5) Right hemiparesis (6) Cardiomegaly (7) Pleural effusion, right Assessment & Plan: Right. Refused throacentesis. (8) Peripheral vascular disease Assessment & Plan: S/P stent and toe amputation (9) CHF exacerbation Assessment & Plan: EF 35-40%. D/C IV lasix due to worsening renal function. See pulmonary note. Followed by cardiology. (10) Cardiomyopathy (11) Morbid obesity (12) COPD (chronic obstructive pulmonary disease) (13) HTN (hypertension) Assessment & Plan: Cont lisinopril, spironolactone and bystolic (14) Atrial fibrillation Assessment & Plan: Paroxysmal; currently sinus. On eliquis. See cardiology note. Status: progressing Assessment/Plan D/C home with home health vs transfer to [facility] per patient request. EZE MORSE Jun 20, 2016 12:31
[2016-06-20] MEDS ORDERED: ALDACTONE25 MG ORAL (12:46)
[2016-06-20] MEDS ORDERED: FUROSEMIDE40 MG ORAL (12:46)
[2016-06-20] MEDS ORDERED: NS 275ml ONE (14:44)
--- NOTE | 2016-06-21 12:58 | Diagnostic Imaging Report ---
Indication: DYSPNEA Technique: One view of the chest Comparison: 06/13/2016 Findings: There is increased pleural fluid on the right, with decreased aerated lung, pleural fluid now occupying well over 50% of the right hemithorax. There is increased crowding of the vascular markings. Interstitial congestive changes persists bilaterally and are probably unchanged. The heart is probably enlarged Impression: Increased massive right pleural effusion, over one day
--- NOTE | 2016-06-21 12:59 | Diagnostic Imaging Report ---
Indication: Dyspnea Comparison: None A single view chest radiograph was obtained. Findings: There is a moderate right pleural effusion. Cardiomegaly is present. Suspect mild pulmonary vascular congestion as well. 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
--- NOTE | 2016-06-21 12:59 | Diagnostic Imaging Report ---
Indication: Dyspnea Comparison: 06/16/16 A single view chest radiograph was obtained. Findings: There is a right pleural effusion. Pulmonary vascularity is prominent. Heart is enlarged. Bones are unremarkable. Impression: Right pleural effusion
--- NOTE | 2016-06-21 18:42 | Discharge Summary ---
Discharge Summary Hospital Course Date of Admission Jun 10, 2016 at 19:00 Date of Discharge Jun 20, 2016 at 14:45 Admitting Diagnosis resp distress HPI Juan Erickson is a 60 year old male who was admitted on Jun 10, 2016 at 19: 00 for Resp Distress Hospital Course [id number] Discharge Discharge Disposition Patient was discharged to home with Discharge Diagnoses: Stephanie Murguia NP Jun 21, 2016 18:42
--- NOTE | 2016-06-22 01:58 | Discharge Summary 2 SIG ---
DATE OF ADMISSION: 06/10/2016 DATE OF DISCHARGE: 06/20/2016 CONSULTANTS: 1. Gabriel Bryant M.D. 2. Brooklynn Evans M.D. BRIEF HOSPITAL COURSE: This is a 60-year-old male with history of chronic obstructive pulmonary disease and congestive heart failure, presented with wheezing and shortness of breath. On evaluation at emergency room, he was found to be in respiratory distress requiring BiPAP. The patient received Lasix. Chest x-ray revealed cardiomegaly with pulmonary vascular prominence. The patient was admitted for acute exacerbation of congestive heart failure. BNP [place] elevated [place] 8949. Dr. Bryant was consulted. The patient had crackles on bilateral lungs as well as bilateral pitting edema and was hypertensive. Echocardiogram done showed ejection fraction of only 35% with no evidence of pericardial effusion and PA pressure of 53. EKG showed sinus rhythm in the 80s with first-degree AV block and low voltage. He was given Lasix and Cardizem. There is questionable atrial fibrillation. The patient was on Eliquis, however, on monitor was sinus rhythm. Dr. Evans was also consulted. The patient was initially placed on BiPAP and given respiratory treatments. Venous duplex of lower extremity was negative. He was given Lasix drip and was advised he would need a thoracentesis considering the size of effusion, however, the patient refused. Drip was eventually discontinued because of rise in BUN and creatinine. Lasix was switched to p.o. The patient was tolerating well on nasal cannula and the patient was eventually discharged home with home health. FINAL DIAGNOSES: 1. Acute respiratory failure requiring BiPAP secondary to congestive heart failure exacerbation and right pleural effusion. 2. Acute systolic congestive heart failure exacerbation with ejection fraction of 35%. 3. Morbid obesity. 4. Coronary artery disease. 5. Diabetes mellitus. 6. Cerebrovascular disease. 7. Right hemiparesis. 8. Cardiomegaly and right pleural effusion. 9. Peripheral vascular disease. 10. Cardiomyopathy. 11. Paroxysmal atrial fibrillation. 12. Chronic obstructive pulmonary disease. 13. Hypertension. Eze Rodriguez M.D. I have been assigned to dictate discharge summary on this account and I was not involved in the patient's management. Stephanie Murguia N.P. DR: ANALI JOB#: [id number] CC: [email or web address]
== END 2016-06-20 14:45 | disposition home health service (06) | DRG 189 ==
LOC: EDBD 16:32 → EMR 18:00 → EDBEDREQ 18:59 → 2W 19:00 → UNDODISIN 06-11 21:10 → 4W 06-19 01:55
DX: J96.00 Acute respiratory failure, unspecified whether with hypoxia or hypercapnia (principal); I42.9 Cardiomyopathy, unspecified; I11.0 Hypertensive heart disease with heart failure; Z68.41 Body mass index [BMI] 40.0-44.9, adult; J90 Pleural effusion, not elsewhere classified; I50.9 Heart failure, unspecified; I69.851 Hemiplegia and hemiparesis following other cerebrovascular disease affecting right dominant side; E66.01 Morbid (severe) obesity due to excess calories; I25.10 Atherosclerotic heart disease of native coronary artery without angina pectoris; E11.9 Type 2 diabetes mellitus without complications; I69.820 Aphasia following other cerebrovascular disease; J44.9 Chronic obstructive pulmonary disease, unspecified; I44.0 Atrioventricular block, first degree; I73.9 Peripheral vascular disease, unspecified
CPT/HCPCS: 36415; 36600; 71010; 80048; 80053; 80069; 81003; 82248; 82550; 82553; 82803; 82962; 83605; 83880; 84484; 85025; 85610; 85730; 87040; 87086; 93005; 93306; 93970; 94644; 94660; 94664; 94760; J1815